=== PATIENT | female | born 1980 | race Caucasian/White ===

== ENCOUNTER 2025-02-10 16:51 | Emergency (ER) | payer SELFPAY ==
[2025-02-10 17:03] VITALS: BP 127/63; PULSE 76; TEMP 36.7; O2SAT 98; BMI 22.7
--- NOTE | 2025-02-10 17:09 | ED_ITS ---
HPI HPI - General Adult General Chief complaint: Wound/Laceration Stated complaint: LT FOOT INJURY Time Seen by Provider: 02/10/25 16:58 Source: patient Mode of arrival: walk-in Limitations: no limitations History of Present Illness HPI narrative: 44-year-old female presents to the emergency department for laceration to her left second toe. This was sustained in her kitchen when she accidentally dropped a kitchen knife and it landed on her toe. No other injury was sustained. It has been more than 10 years since she had a tetanus shot. Related Data Allergies Allergy/AdvReac Type Severity Reaction Status Date / Time No Known Drug Allergies Allergy Verified 02/10/25 17:07 Opioid HPI Opioid Management Most Recent Opioid Data: No Data to Display Review of Systems ROS Narrative A ten point review of systems is negative except as noted above. PFSH PFSH Social History Little interest or pleasure in doing things: not at all Feeling down, depressed, or hopeless: not at all Exam Narrative Exam Narrative: Nurses note and vital signs reviewed and patient is not hypoxic. General: The patient appears well and in no apparent distress. Patient is resting comfortably on cart. Skin: Warm, dry, no pallor noted. There is no rash noted. Head: Normocephalic, atraumatic Eye: Normal conjunctiva, no drainage Ears, Nose, Mouth, and Throat: oral mucosa is moist. Nares patent. Cardiovascular: Regular Rate and Rhythm Respiratory: Patient is in no distress, no accessory muscle use Back: non-tender, no CVA tenderness bilaterally to percussion. GI: Soft and nontender Musculoskeletal: Left second toe has a transverse 1 cm laceration. No active bl eeding but the wound is gaping. No other wounds present. Neurological: A&O normal speech Psychiatric: Cooperative Constitutional Vital Signs, click to edit/add: Last Vital Signs Temp 98.1 F 02/10/25 17:03 Pulse 76 02/10/25 17:03 Resp 18 02/10/25 17:03 BP 127/63 02/10/25 17:03 Pulse Ox 98 02/10/25 17:03 O2 Del Method Room Air 02/10/25 17:03 Course Vital Signs Vital signs: Vital Signs Temperature 98.1 F 02/10/25 17:03 Pulse Rate 76 02/10/25 17:03 Respiratory Rate 18 02/10/25 17:03 Blood Pressure 127/63 02/10/25 17:03 Pulse Oximetry 98 02/10/25 17:03 Oxygen Delivery Method Room Air 02/10/25 17:03 Temperature 98.1 F 02/10/25 17:03 Pulse Rate 76 02/10/25 17:03 Respiratory Rate 18 02/10/25 17:03 Blood Pressure 127/63 02/10/25 17:03 Pulse Oximetry 98 02/10/25 17:03 Oxygen Delivery Method Room Air 02/10/25 17:03 Medical Decision Making MDM Narrative Medical decision making narrative: The following procedure was performed by me. Local infiltration was carried out with 1% lidocaine without epinephrine resulting in complete skin anesthesia. The area was prepped with Betadine x 3 and draped sterilely. It was explored for foreign bodies and none were found and then closed with two 5-0 Ethilon sutures resulting in good skin reapproximation and no complications. No tendon injury noted. She tolerated the procedure well. Sutures are to be removed in 7 to 10 days. Treatment diagnosis and follow-up were discussed with the patient. Differential Diagnosis Differential Diagnosis: Laceration, need for tetanus immunization update Discharge Plan Discharge Chief Complaint: Wound/Laceration Clinical Impression: Laceration of toe Patient Disposition: Home, Self-Care Time of Disposition Decision: 17:27 Condition: Good Mode of Transportation: Private Vehicle Print Language: Scottish Instructions: Laceration (ED) Additional Instructions: Sutures to be removed in 7 to 10 days. Keep clean and dry. Referrals: Physician,Non-Staff, MD [Primary Care Provider] - 1 week
[2025-02-10] MEDS: LIDOCAINE HCL 1% 100 MG/10 ML MDV INJ (17:25)
[2025-02-10] MEDS: ADACEL DIPH,PERTUSS(ACELL),TET VAC/PF 0.5 ML ADULT SYRINGE IM (17:32)
== END 2025-02-10 17:39 | disposition home or self-care (01) ==
PROVIDERS: Emergency Provider Emergency Medicine
DX: S91.115A Laceration without foreign body of left lesser toe(s) without damage to nail, initial encounter (principal); W26.0XXA Contact with knife, initial encounter; Z23 Encounter for immunization
CPT/HCPCS: 12001; 90471; 90715; 99284

== ENCOUNTER 2025-06-16 07:30 | Outpatient (OUT) | payer BC, SELFPAY ==
--- OUTSIDE RECORDS SUMMARY | 2025-06-16 07:36 | XMS_ITS | CCD ---
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 Name Role Phone KARLA MARSH Admitting Unavailable HOSPITAL, [facility] Referring Unavailabl e SELF, REFERRED Primary Care Unavailable [place] Procedure Practitioner Unavailab le UNKNOWN, PROVIDER Surgeon Unavailable UNKNOWN, PROVIDER Attending Unavailable EDSON HENDERSON Admitting Unavailable MARKER, SAMIA Winkler Referring Unavailable STEPHANIE, RUGEN Primary Care Unavailable KARLA MARSH Attending Unavailable KARLA MARSH Admitting Unavailable KLEKARLA GONZALEZ Attending Unavailable STEPHANIE, RUGEN Referring Unavailable STEPHANIE, RUGEN Primary Care Unavailable URIEL SHAILA Admitting Unavailable SHAILA TREVINO Attending Unavailable URIEL, SHAILA Primary Care Unavailable BLANCA LORENZO Referring Unavailable NO PCP, NO PCP Primary Care Unavailable JUANJOSE WOODS Attending Unavailable GIOVANNY AYERS Referring Unavailable FROGAMENI III, GIOVANNY Orellana Attending Unavail able NO PCP, NO PCP Primary Care Unavailable FROGAMENI III, GIOVANNY D Attending Unavail able NO PCP, NO PCP Primary Care Unavailable BLANCA LORENZO Attending Unavailable NO PCP, NO PCP Primary Care Unavailable BLANCA LORENZO Attending Unavailable NO PCP, NO PCP Primary Care Unavailable BLANCA LORENZO Referring Unavailable NO PCP, NO PCP Primary Care Unavailable TRACE ONEILL Referring Unavailable Problems Active Problems Problem Classification Problem Date Documented Date Episodic/Chronic Acute posthemorrhagic anemia (1 source) Acute posthemorrhagic anemia; Translations: [ACUTE POSTHEMORRHAGIC ANEMIA] Onset: 01-24-2019 Episodic Crushing injury or internal injury (7 sources) Unspecified laceration of spleen, initial encounter; Translations: [Major laceration of spleen, subsequent encounter] Onset: 01-16-2019 Episodic Deficiency and other anemia (1 source) Iron deficiency anemia, unspecified; Translations: [IRON DEFICIENCY ANEMIA, UNSPECIFIED] Onset: 01-24-2019 Episodic External cause codes: Fall (1 source) Fall (on) (from) unspecified stairs and steps, initial encounter; Translations: [FALL (ON) (FROM) UNSPECIFIED STAIRS AND STEPS, INIT ENCNTR] Onset: 01-16-2019 Immunizations and screening for infectious disease (2 sources) Encounter for immunization; Translations: [Contact with and (suspected) exposure to infections with a predominantly sexual mode of transmission] Onset: 01-16-2019 Episodic Joint disorders and dislocations; trauma-related (1 source) Other tear of lateral meniscus, current injury, right knee, subsequent encounter; Translations: [Other tear of lateral meniscus, current injury, right knee, subsequent encounter] Onset: 01-03-2024 Episodic Other nervous system disorders (2 sources) Lesion of lateral popliteal nerve, right lower limb; Translations: [Lesion of lateral popliteal nerve, right lower limb] Onset: 12-01-2023 Chronic Other non-traumatic joint disorders (1 source) Pain in right knee; Translations: [Pain in right knee] Onset: 11-18-2023 Episodic Substance-related disorders (1 source) Nicotine dependence, cigarettes, uncomplicated; Translations: [NICOTINE DEPENDENCE, CIGARETTES, UNCOMPLICATED] Onset: 01-24-2019 Chronic Unclassified (2 sources) SPLENIC LACERATION Onset: 01-16-2019 Unclassified (1 source) Post-op Onset: 01-03-2024 Past or Other Problems Problem Classification Problem Date Documented Da te Episodic/Chronic Other connective tissue disease (2 sources) Iliotibial band syndrome, right leg; Translations: [Iliotibial band syndrome, right leg] Onset: 11-01-2023 Episodic Residual codes; unclassified (1 source) Pain Onset: 11-01-2023 Episodic Results Test Name Value Interpretation Reference Range Facility Cult,Genitalon 02-20-2024 Cult,Genital Specimen Description .VAGINA Culture NORMAL URO-GENITAL TAMI NEGATIVE FOR GROUP B STREPTOCOCCI NEGATIVE FOR NEISSERIA GONORRHOEAE Report Status FINAL 02/20/2024 Normal [facility] Comment on above: Performed By: #### G EC #### [employer] [address] [place] [address] [employer] Dean: Oz Lipscomb MD [facility] [address] [place] [address] [employer] Dean: Rusty Woods MD Chlamydia/GC DNA, TPon 02-17 Chlamydia Probe, TP Negative Normal NEG [facility] Comment on above: Result Comment: CHLA MYDIA TRACHOMATIS DNA not detected by nucleic acid amplification. This test is intended for medical purposes only and is not valid for the evaluation of suspected sexual abuse or for other forensic purposes. In certain contexts, culture may be required to meet applicable laws and regulations for diagnosis of C. trachomatis and N. gonorrhoeae infections. Per 2014 CDC recommendations, this test does not include confirmation of positive results by an alternative nucleic acid target. Performed By: #### C YTCGP #### [address] [id number] [employer] Dean: Oz Lipscomb MD Gonorrhea Probe, TP Negative Normal NEG [facility] Comment on above: Result Comment: NEIS SERIA GONORRHOEAE DNA not detected by nucleic acid amplification. This test is intended for medical purposes only and is not valid for the evaluation of suspected sexual abuse or for other forensic purposes. In certain contexts, culture may be required to meet applicable laws and regulations for diagnosis of C. trachomatis and N. gonorrhoeae infections. Per 2014 CDC recommendations, this test does not include confirmation of positive results by an alternative nucleic acid target. Performed By: #### C YTCGP #### [address] [id number] [employer] Dean: Oz Lipscomb MD Cytology Reporton 02-17-2024 Cytology report Cyto stain.thin prep Doc (Cvx/Vag) (NOTE) Path Number: [id number] DIAGNOSIS Imaged ThinPrep Pap - Cervical (1 monolayer slide): Specimen Adequacy: Satisfactory for evaluation. - Endocervical/transfo rmation zone component present. Descriptive Diagnosis: Negative for intraepithelial lesion or malignancy. Comments: Specimen was screened at [facility], [address] [place] [id number] [employer] Screener: CS Electronically Signed Out MORAIMA Chilel(ASCP) sonya/02/27/2024 Source of Specimen: A: Imaged ThinPrep Pap - Cervical (1 monolayer slide) HPV Reflex?............. .........HPV if Abnormal Clinical History Z01.419 Routine obgyn hospitalist physician exam without abnormal findings Processing Lab: [address] [id number] Interpretation performed at [facility], [address] [place] [id number] This Pap Test has been evaluated with the assistance of the mobile melting gmbhPrep Pap Test Imaging System. The Pap smear is a screening test primarily for squamous epithelial lesions, which is subject to both false negative and false positive results. Your patient should be reminded to consult you immediately if she experiences any suspicious signs or symptoms, regardless of her Pap smear result. GYNECOLOGIC CYTOLOGY REPORT Patient Name: BISMARK FOURNIER [facility] Rec: [id number] [employer] [facility] [address] [place] [id number] [facility] Surgical Pathology Reporton 02-17-2024 Surgical Pathology Report (NOTE) Path Number: [id number] -- Diagnosis -- CERVIX, POLYPECTOMY: - BENIGN ENDOCERVICAL POLYP WITH FOCAL DYSTROPHIC CALCIFICATIONS AND CHRONIC INFLAMMATION. Louie Kang M.D. Electronically Signed Out sls/02/21/2024 Clinical Information Pre-Op Diagnosis: CERVICAL POLYP Operation Performed: [place] BIOPSY CERVIX SINGLE/MULT/EXCISION OF LESION SPX kb Source of Specimen A: CERVICAL POLYP Gross Description BISMARK FOURNIER CERVICAL POLYP Received in formalin is a 2.7 x 0.5 x 0.2 cm pink-garcia, polypoid fragment. The base is inked. Intact, 1cs. tm Amber Weiner/kb2:02/18/2024 Microscopic Description Microscopic examination performed. Processing Lab: [address] [id number] Interpretation Performed at [address] [id number] SURGICAL PATHOLOGY CONSULTATION Patient Name: BISMARK FOURNIER Med Rec: [id number] [facility]AT[facility] [address] [place] [phone] Normal [facility] MR KNEE RT WO CONTon 024 MR KNEE RT WO CONT MR KNEE RT WO CONT History: Right lateral knee pain for 3 years Comparison right knee x-ray November 18 Procedure multiplanar multisequence imaging performed through the knee Findings: Complex tear anterior horn lateral meniscus communicating with a meniscal cyst measuring 22 mm coronal image 14 series 10. There is a reactive effusion adjacent to that is at the posterior lateral corner of the knee axial image 19 and coronal image 19 series 10 Medial meniscus appropriate Cruciate and collateral ligaments appropriate Moderate arthritis of the lateral compartment with osteophytes and grade 2-3 hyaline cartilage loss with a focal grade 3 defect coronal image 16 and a moderate lateral compartment osteophyte along with extensive subchondral cysts within the tibial eminence which are degenerative Patellofemoral and medial compartment of relatively spared Ganglion on at the posterior lateral aspect of the knee immediately posterior to the distal femoral metadiaphysis sagittal image 20 series 13 and coronal image 15, measuring 21 mm No bone contusion or osteochondral injury IMPRESSION: Complex tear anterior horn lateral meniscus with adjacent meniscal cyst and reactive effusion Osteoarthritis predominating lateral compartment Ganglion posterior lateral aspect of the knee immediately posterior to the distal femoral metadiaphysis. Finalized by Joseph Callahan MD on 12/04/2023 9:[address] [facility] CBC W/DIFFon 02-06-2019 ABS BASOPHILS 0.1 10*3/uL Normal 0.0-0.2 [facility] Comment on above: Performed By: #### 1 53, #### [facility] [address] ABS IMM GRANS 0.0 10*3/uL Normal 0.0-0.2 [facility] Comment on above: Performed By: #### 1 53, #### [facility] [address] ABS NEUTROPHILS 6.0 10*3/uL Normal 1.6-7.6 The [facility] Comment on above: Performed By: #### 1 53, #### [facility] [address] Basophils #/vol (Bld) 0.6 % Normal 0.0-1.0 The [facility] Comment on above: Performed By: #### 1 #### [facility] [address] [facility]. [address] Eosinophils #/vol (Bld) 0.1 10*3/uL Normal 0.0-0.5 [facility] Comment on above: Performed By: #### 1 #### [facility] [address] Eosinophils/100 WBC (Bld) 1.1 % Normal 0.0-6.0 The [facility] Comment on above: Performed By: #### 1 #### [facility] [address] Erythrocyte distribution width Ratio (RBC) 13.2 % Normal 11.5-15.0 The [facility] Comment on above: Performed By: #### 1 #### [facility] [address] Hematocrit Volume Fraction (Bld) 38.6 % Normal 36.0-45.0 The [facility] Comment on above: Performed By: #### 1 #### [facility] [address] [facility]. [address] Hemoglobin mass conc (Bld) 13.1 g/dL Normal 12.0-15.0 The [facility] Comment on above: Performed By: #### 1 #### [facility] [address] [facility]. [address] IMMATURE GRANS 0.2 % Normal 0.0-1.0 [facility] Comment on above: Performed By: #### 1 #### [facility] [address] Lymphocytes #/vol (Bld) 1.6 10*3/uL Normal 1.2-4.0 The [facility] Comment on above: Performed By: #### 1 #### [facility] [address] [place] [address], [facility] Lymphocytes/100 WBC (Bld) 19.4 % Low 20.0-45.0 The [facility] Comment on above: Performed By: #### 1 #### [facility] [address] [facility]. [address] MCH Entitic mass (RBC) 32.6 pg Normal 27.0-33.0 The [facility] Comment on above: Performed By: #### 1 #### [facility] [address] [facility] [address] MCHC mass conc (RBC) 33.9 g/dL Normal 32.0-35.0 The [facility] Comment on above: Performed By: #### 1 #### [facility] [address] [facility]. [address] MCV Entitic volume (RBC) 96.0 fL Normal 82.0-98.0 The [facility] Comment on above: Performed By: #### 1 #### [facility] [address] [facility]. [address] Monocytes #/vol (Bld) 0.5 10*3/uL Normal 0.1-1.0 e [facility] Comment on above: Performed By: #### 1 #### [facility] [address] [facility] [place] [address], [facility] MONOS 5.7 % Normal 5.0-12.0 The [facility] Comment on above: Performed By: #### 1 #### [facility] [address] [place] [address], [facility] Neutrophils/100 WBC (Bld) 73.0 % High 40.0-72.0 The [facility] Comment on above: Performed By: #### 1 #### [facility] [address] [place] [address], [facility] Nucleated RBC/100 WBC Ratio (Bld) 0 % Normal 0-0 The [facility] Comment on above: Performed By: #### 1 53, #### [facility] [address] [place] [address], [facility] PLAT CNT 350 10*3/uL Normal 150-400 The [facility] Comment on above: Performed By: #### 1 #### [facility] [address] [place] [address], [facility] RBC #/vol (Bld) 4.02 10*6/uL Normal 3.80-5.00 The [facility] Comment on above: Performed By: #### 1 #### [facility] [address] [facility] [place] [address], [facility] WBC #/vol (Bld) 8.21 10*3/uL Normal 4.00-10.60 [facility] Comment on above: Performed By: #### 1 #### [facility] [address] CBC COMPLETE BLOOD COUNTon 0 - Erythrocyte distribution width Ratio (RBC) 13.1 % Normal 11.5-15.0 The [facility] Comment on above: Order Comment: No: D o not add to previous draw Performed By: #### 1 53, #### [facility] [address] [place] [address], [facility] Hematocrit Volume Fraction (Bld) 28.6 % Low 36.0-45.0 The [facility] Comment on above: Order Comment: No: D o not add to previous draw Performed By: #### 1 53, #### [facility] [address] [place] [address], [facility] Hemoglobin mass conc (Bld) 9.6 g/dL Low 12.0-15.0 The [facility] Comment on above: Order Comment: No: D o not add to previous draw Performed By: #### 1 53, #### [facility] [address] [place] [address], [facility] MCH Entitic mass (RBC) 32.0 pg Normal 27.0-33.0 The [facility] Comment on above: Order Comment: No: D o not add to previous draw Performed By: #### 1 #### [facility] [address] [place] [address], [facility] MCHC mass conc (RBC) 33.6 g/dL Normal 32.0-35.0 The [facility] Comment on above: Order Comment: No: D o not add to previous draw Performed By: #### 1 #### [facility] [address] [place] [address], [facility] MCV Entitic volume (RBC) 95.3 fL Normal 82.0-98.0 The [facility] Comment on above: Order Comment: No: D o not add to previous draw Performed By: #### 1 #### [facility] [address] [place] [address], [facility] Nucleated RBC/100 WBC Ratio (Bld) 0 % Normal 0-0 The [facility] Comment on above: Order Comment: No: D o not add to previous draw Performed By: #### 1 53, #### [facility] [address] [place] [address], [facility] PLAT CNT 376 10*3/uL Normal 150-400 [facility] Comment on above: Order Comment: No: D o not add to previous draw Performed By: #### 1 53, #### [facility] [address] [place] [address], [facility] RBC #/vol (Bld) 3.00 10*6/uL Low 3.80-5.00 [facility] Comment on above: Order Comment: No: D o not add to previous draw Performed By: #### 1 53, #### [facility] [address] [place] [address], [place] WBC #/vol (Bld) 7.61 10*3/uL Normal 4.00-10.60 [facility] Comment on above: Order Comment: No: D o not add to previous draw Performed By: #### 1 53, #### [facility] [address] [place] [address], [facility] BASIC METABOLIC PANELon 04- Calcium mass conc 8.3 mg/dL Low 8.6-10.3 [facility] Comment on above: Order Comment: No: D o not add to previous draw Performed By: #### 1 53, #### [facility] [address] [place] [address], [place] Chloride molar conc 106 mmol/L Normal 98-107 The [facility] Comment on above: Order Comment: No: D o not add to previous draw Performed By: #### 1 53, #### [facility] [address] [place] [address], [place] CO2 molar conc 29 mmol/L Normal 21-31 The [facility] Comment on above: Order Comment: No: D o not add to previous draw Performed By: #### 1 53, #### [facility] [address] [place] [address], [place] Creatinine mass conc 0.62 mg/dL Normal 0.60-1.20 The [facility] Comment on above: Order Comment: No: D o not add to previous draw Performed By: #### 1 53, #### [facility] [address] [place] [address], [place] GFR/1.73 sq M predicted among blacks MDRD vol rate/area (S/P/Bld) mL/min/{1.73_m2} Normal >60 The [facility] Comment on above: Order Comment: No: D o not add to previous draw Performed By: #### 1 53, #### [facility] [address] [place] [address], [place] GFR/1.73 sq M predicted among non-blacks MDRD vol rate/area (S/P/Bld) mL/min/{1.73_m2} Normal >60 The [facility] Comment on above: Order Comment: No: D o not add to previous draw Performed By: #### 1 53, #### [facility] [address] [place] [address], [place] Glucose mass conc 106 mg/dL High 70-100 [facility] Comment on above: Order Comment: No: D o not add to previous draw Performed By: #### 1 53, #### [facility] [address] [place] [address], [place] Potassium molar conc 3.9 mmol/L Normal 3.5-5.1 The [facility] Comment on above: Order Comment: No: D o not add to previous draw Performed By: #### 1 53, #### [facility] [address] [place] [address], [place] Sodium molar conc 138 mmol/L Normal 136-145 [facility] Comment on above: Order Comment: No: D o not add to previous draw Performed By: #### 1 53, #### [facility] [address] [place] [address], [facility] Urea nitrogen mass conc 7 mg/dL Normal 7-25 The [facility] Comment on above: Order Comment: No: D o not add to previous draw Performed By: #### 1 53, #### [facility] [address] [place] [address], [facility] CBC COMPLETE BLOOD COUNTon 0 - Erythrocyte distribution width Ratio (RBC) 13.2 % Normal 11.5-15.0 [facility] Comment on above: Order Comment: No: D o not add to previous draw Performed By: #### 1 53, #### [facility] [address] [place] [address], [facility] Hematocrit Volume Fraction (Bld) 27.7 % Low 36.0-45.0 [facility] Comment on above: Order Comment: No: D o not add to previous draw Performed By: #### 1 53, #### [facility] [address] [place] [address], [facility] Hemoglobin mass conc (Bld) 9.3 g/dL Low 12.0-15.0 [facility] Comment on above: Order Comment: No: D o not add to previous draw Performed By: #### 1 53, #### [facility] [address] [place] [address], [facility] MCH Entitic mass (RBC) 32.3 pg Normal 27.0-33.0 [facility] Comment on above: Order Comment: No: D o not add to previous draw Performed By: #### 1 53, #### [facility] [address] [place] [address], [facility] MCHC mass conc (RBC) 33.6 g/dL Normal 32.0-35.0 [facility] Comment on above: Order Comment: No: D o not add to previous draw Performed By: #### 1 53, #### [facility] [address] [place] [address], [facility] MCV Entitic volume (RBC) 96.2 fL Normal 82.0-98.0 [facility] Comment on above: Order Comment: No: D o not add to previous draw Performed By: #### 1 53, #### [facility] [address] [place] [address], [facility] Nucleated RBC/100 WBC Ratio (Bld) 0 % Normal 0-0 [facility] Comment on above: Order Comment: No: D o not add to previous draw Performed By: #### 1 53, #### [facility] [address] [place] [address], [facility] PLAT CNT 316 10*3/uL Normal 150-400 [facility] Comment on above: Order Comment: No: D o not add to previous draw Performed By: #### 1 53, #### [facility] [address] [place] [address], [facility] RBC #/vol (Bld) 2.88 10*6/uL Low 3.80-5.00 [facility] Comment on above: Order Comment: No: D o not add to previous draw Performed By: #### 1 53, #### [facility] [address] [place] [address], [facility] WBC #/vol (Bld) 7.66 10*3/uL Normal 4.00-10.60 [facility] Comment on above: Order Comment: No: D o not add to previous draw Performed By: #### 1 53, #### [facility] [address] [place] [address], [facility] IRON BLOODon 01-25-2019 Iron mass conc 32 ug/dL Low 50-212 [facility] Comment on above: Order Comment: No: D o not add to previous draw Performed By: #### 1 53, #### [facility] [address] [place] [address], [place] BASIC METABOLIC PANELon 04-0 Calcium mass conc 8.8 mg/dL Normal 8.6-10.3 [facility] Comment on above: Order Comment: No: D o not add to previous draw Performed By: #### 1 53, #### [facility] [address] [place] [address], [place] Chloride molar conc 106 mmol/L Normal 98-107 The [facility] Comment on above: Order Comment: No: D o not add to previous draw Performed By: #### 1 53, #### [facility] [address] [place] [address], [place] CO2 molar conc 26 mmol/L Normal 21-31 [facility] Comment on above: Order Comment: No: D o not add to previous draw Performed By: #### 1 53, #### [facility] [address] [place] [address], [place] Creatinine mass conc 0.59 mg/dL Low 0.60-1.20 [facility] Comment on above: Order Comment: No: D o not add to previous draw Performed By: #### 53, #### [facility] [address] [place] [address], [place] GFR/1.73 sq M predicted among blacks MDRD vol rate/area (S/P/Bld) mL/min/{1.73_m2} Normal >60 The [facility] Comment on above: Order Comment: No: D o not add to previous draw Performed By: #### 1 53, #### [facility] [address] [place] [address], [place] GFR/1.73 sq M predicted among non-blacks MDRD vol rate/area (S/P/Bld) mL/min/{1.73_m2} Normal >60 The [facility] Comment on above: Order Comment: No: D o not add to previous draw Performed By: #### 1 53, #### [facility] [address] [place] [address], [facility] Glucose mass conc 104 mg/dL High 70-100 [facility] Comment on above: Order Comment: No: D o not add to previous draw Performed By: #### 1 53, #### [facility] [address] [place] [address], [facility] Potassium molar conc 3.6 mmol/L Normal 3.5-5.1 [facility] Comment on above: Order Comment: No: D o not add to previous draw Performed By: #### 1 53, #### [facility] [address] [place] [address], [facility] Sodium molar conc 139 mmol/L Normal 136-145 [facility] Comment on above: Order Comment: No: D o not add to previous draw Performed By: #### 1 53, #### [facility] [address] [place] [address], [facility] Urea nitrogen mass conc 7 mg/dL Normal 7-25 [facility] Comment on above: Order Comment: No: D o not add to previous draw Performed By: #### 1 53, #### [facility] [address] [place] [address], [facility] CBC COMPLETE BLOOD COUNTon 0 - Erythrocyte distribution width Ratio (RBC) 13.1 % Normal 11.5-15.0 [facility] Comment on above: Order Comment: No: D o not add to previous draw Performed By: #### 1 53, #### [facility] [address] [place] [address], [place] Hematocrit Volume Fraction (Bld) 28.4 % Low 36.0-45.0 [facility] Comment on above: Order Comment: No: D o not add to previous draw Performed By: #### 1 53, #### [facility] [address] [place] [id number], [facility] Hemoglobin mass conc (Bld) 9.9 g/dL Low 12.0-15.0 [facility] Comment on above: Order Comment: No: D o not add to previous draw Performed By: #### 1 53, #### [facility] [address] [place] [address], [facility] MCH Entitic mass (RBC) 33.6 pg High 27.0-33.0 [facility] Comment on above: Order Comment: No: D o not add to previous draw Performed By: #### 1 53, #### [facility] [address] [place] [id number], [facility] MCHC mass conc (RBC) 34.9 g/dL Normal 32.0-35.0 [facility] Comment on above: Order Comment: No: D o not add to previous draw Performed By: #### 1 #### [facility] [address] [place] [address], [facility] MCV Entitic volume (RBC) 96.3 fL Normal 82.0-98.0 [facility] Comment on above: Order Comment: No: D o not add to previous draw Performed By: #### 1 #### [facility] [address] [place] [id number], [facility] Nucleated RBC/100 WBC Ratio (Bld) 0 % Normal 0-0 [facility] Comment on above: Order Comment: No: D o not add to previous draw Performed By: #### 1 53, #### [facility] [address] [place] [id number], [facility] PLAT CNT 299 10*3/uL Normal 150-400 [facility] Comment on above: Order Comment: No: D o not add to previous draw Performed By: #### 1 53, #### [facility] [address] [facility] [place] [address], [facility] RBC #/vol (Bld) 2.95 10*6/uL Low 3.80-5.00 [facility] Comment on above: Order Comment: No: D o not add to previous draw Performed By: #### 1 53, #### [facility] [address] [place] [address], [facility] WBC #/vol (Bld) 8.21 10*3/uL Normal 4.00-10.60 [facility] Comment on above: Order Comment: No: D o not add to previous draw Performed By: #### 1 53, #### [facility] [address] ABDOMEN AND PELVIS W CONT RASTon 01-24-2019 CT ABDOMEN AND PELVIS W CONTRAST [facility] Department of Radiology [address] [place] [id number] Patient Name: BISMARK FOURNIER : 1980 Sex: F Age: Race: White Pt. Location: [id number] Patient Status: I Ordered Date: 01/24/2019 9:25:00 AM Completed Date: 01/24/2019 10:39 AM Requesting Provider: KARLA MARSH Attending Provider: EDSON HENDERSON Report Copy To: Signs & Symptoms: Trauma History: Patient history not available Comments: R/O Liver/Spleen Trauma, Known splenic injury with increasing pain Exam: CT ABDOMEN AND PELVIS W CONTRAST CT ABDOMEN AND PELVIS W CONTRAST 01/24/2019 10:39 AM EDT SIGNS AND SYMPTOMS: Trauma TECHNOLOGIST COMMENTS: Pt is s/p fall down stairs x 1 week. H/o known ruptured spleen. Pt c/o new onset of left sided abdominal pain x 1 day. QUESTION FOR THE RADIOLOGIST: R/O Liver/Spleen Trauma, Known splenic injury with increasing pain PROTOCOL: Axial CT images of the abdomen/pelvis were obtained with IV contrast. CONTRAST: Contrast: OMNIPAQUE 350 (LOCM), 100 milliliter, Intravenous TECHNIQUE: Multidetector ct axial images of the abdomen and pelvis were obtained with IV contrast. Multiplanar reformats were performed and viewed on a separate workstation and reviewed to further define anatomy and possible pathology. Appropriate CT dose lowering techniques were utilized. COMPARISON: January 16, 2019. FINDINGS: Lower Chest: Mild dependent and left lower lobe atelectasis. ABDOMEN: Liver: Normal in morphology and size. No hepatic lesions. There is a small amount of perihepatic blood, decreased in size. Bile Ducts: Normal caliber. Gallbladder: Unremarkable. Pancreas: Within normal limits. Spleen: Areas of laceration appear unchanged. Pelvic extension of hemorrhage appears to have resolved. However blood (HU 53) noted between the spleen and left lateral abdominal may be slightly increased with layered areas of increased attenuation concerning for intermittent bleeding. Adrenals: Within normal limits. Kidneys: No renal calculi or evidence of obstruction. Pelvis: Reproductive Organs: No pelvic masses. Ureters: Within normal limits. Bladder: Within normal limits. Bowel: Normal caliber. Mesenteric Lymph Nodes: No enlarged mesenteric lymph nodes. Peritoneum: No free air. Vessels: Within normal limits. Retroperitoneum: Within normal limits. Abdominal Wall: Within normal limits. Bones: Within normal limits. IMPRESSION: * Splenic laceration with signs of intermittent bleeding. * Overall decreased size of hemoperitoneum. * Blood in the left upper quadrant appears slightly increased in volume, some or all of which may be subcapsular. Approved by:Noam Robles on 01/24/2019 11:42 AM EDT. I, Jennifer Amaro, have reviewed the images and report and concur with these findings. Electronically signed by:Jennifer Amaro. Transcribed by: [email or web address], User Resident: NOAM ROBLES Electronically Signed by: JENNIFER AMARO @ 01/24/2019 01:07 PM I personally read this/these film(s) with this resident Normal [facility] Comment on above: Order Comment: No: D o not add to previous draw LACTATE BLOODon 01-24-2019 Lactate molar conc 0.5 mmol/L Normal 0.5-2.2 [facility] Comment on above: Order Comment: No: D o not add to previous draw Performed By: #### 1 005, #### [address] MAGNESIUM BLOODon 01-24-2019 Magnesium mass conc 2.0 mg/dL Normal 1.9-2.7 [facility] Comment on above: Order Comment: No: D o not add to previous draw Performed By: #### 1 53, #### [address] PORTABLE CHEST 1 VIEWon PORTABLE CHEST [address] [facility] Department of Radiology [address] [place] [id number] Patient Name: BISMARK FOURNIER : 1980 Sex: F Age: Race: White Pt. Location: [id number] Patient Status: I Ordered Date: 01/24/2019 9:25:00 AM Completed Date: 01/24/2019 11:49 AM Requesting Provider: KARLA MARSH Attending Provider: ESDON HENDERSON Report Copy To: Signs & Symptoms: Acute Respiratory Distress History: Patient history not available Comments: R/O Effusion Exam: PORTABLE CHEST 1 VIEW PORTABLE CHEST 1 VIEW 01/24/2019 11:49 AM EDT SIGNS AND SYMPTOMS: Acute Respiratory Distress TECHNOLOGIST COMMENTS: shortness of breath QUESTION FOR THE RADIOLOGIST: R/O Effusion PROTOCOL: AP(PA) view was obtained. COMPARISON: CT chest January 16 FINDINGS: The heart and mediastinum are unremarkable. Lungs are free of infiltrates or effusions. No thoracic deformity is noted. No obvious rib fractures. IMPRESSION: Normal chest. No pleural effusion. Electronically signed by:Ariela Villegas. Transcribed by: [email or web address], User Resident: Electronically Signed by: ARIELA VILLEGAS @ 01/24/2019 01:34 PM Normal [facility] Comment on above: Order Comment: No: D o not add to previous draw PROTHROMBIN TIMEon 9 INR Coag RelTime (PPP) 1.04 {INR} Normal 0.91-1.16 [facility] Comment on above: Order Comment: No: D o not add to previous draw Result Comment: ACCC P RECOMMENDED INR FOR WARFARIN THERAPY -------- ------- CONDITION INR PROPHYLAXIS OF VENOUS THROMBOSIS 2-3 (HIGH-RISK SURGERY) TREATMENT OF VENOUS THROMBOSIS 2-3 TREATMENT OF PULMONARY EMBOLISM 2-3 PREVENTION OF SYSTEMIC EMBOLISM: 2-3 ACUTE MYOCARDIAL INFARCTION TISSUE HEART VALVES VALVULAR HEART DISEASE ATRIAL FIBRILLATION RECURRENT SYSTEMIC EMBOLISM MECHANICAL HEART VALVE 2.5-3.5 FROM: ORAL ANTICOAGULANTS. MECHANISM OF ACTION, CLINICAL EFFECTIVENESS, AND OPTIMAL THERAPEUTIC RANGE. CHEST 1995;108:231S-246S. Performed By: #### 1 53, #### [facility] [address] Prothrombin time (PT) Coag time (PPP) 13.6 s Normal 12.3-14.8 [facility] Comment on above: Order Comment: No: D o not add to previous draw Result Comment: ALL RESULTS MUST BE INTERPRETED WITH RESPECT TO BLOOD DRAWING ARTIFACT OR DILUTION ERROR OF ANTICOAGULANT AT THE TIME OF SAMPLING. Performed By: #### 1 53, #### [facility] [address] HEMATOCRITon 01-19-2019 Hematocrit Volume Fraction (Bld) 29.7 % Low 36.0-45.0 [facility] Comment on above: Order Comment: No: D o not add to previous draw Performed By: #### 1 53, #### [facility] [address] [place] [address], [facility] HEMOGLOBINon 01-19-2019 Hemoglobin mass conc (Bld) 10.7 g/dL Low 12.0-15.0 [facility] Comment on above: Order Comment: No: D o not add to previous draw Performed By: #### 1 53, #### [facility] [address] [place] [address], [facility] BASIC METABOLIC PANELon Calcium mass conc 7.6 mg/dL Low 8.6-10.3 [facility] Comment on above: Order Comment: No: D o not add to previous draw Performed By: #### 1 53, #### [facility] [address] [place] [address], [facility] Chloride molar conc 109 mmol/L High 98-107 [facility] [place] [facility] Comment on above: Order Comment: No: D o not add to previous draw Performed By: #### 1 53, #### [facility] [address] [place] [address], [place] CO2 molar conc 20 mmol/L Low 21-31 [facility] Comment on above: Order Comment: No: D o not add to previous draw Performed By: #### 1 53, #### [facility] [address] [place] [address], [place] Creatinine mass conc 0.59 mg/dL Low 0.60-1.20 [facility] Comment on above: Order Comment: No: D o not add to previous draw Performed By: #### 1 53, #### [facility] [address] [place] [address], [place] GFR/1.73 sq M predicted among blacks MDRD vol rate/area (S/P/Bld) mL/min/{1.73_m2} Normal >60 [facility] Comment on above: Order Comment: No: D o not add to previous draw Performed By: #### 1 53, #### [facility] [address] [place] [address], [place] GFR/1.73 sq M predicted among non-blacks MDRD vol rate/area (S/P/Bld) mL/min/{1.73_m2} Normal >60 [facility] Comment on above: Order Comment: No: D o not add to previous draw Performed By: #### 1 53, #### [facility] [address] [place] [address], [place] Glucose mass conc 68 mg/dL Low 70-100 [facility] Comment on above: Order Comment: No: D o not add to previous draw Performed By: #### 1 53, #### [facility] [address] [place] [address], [place] Potassium molar conc 3.7 mmol/L Normal 3.5-5.1 [facility] Comment on above: Order Comment: No: D o not add to previous draw Performed By: #### 1 53, #### [facility] [address] [place] [address], [place] Sodium molar conc 136 mmol/L Normal 136-145 [facility] Comment on above: Order Comment: No: D o not add to previous draw Performed By: #### 1 53, #### [facility] [address] [place] [address], [facility] Urea nitrogen mass conc 8 mg/dL Normal 7-25 [facility] Comment on above: Order Comment: No: D o not add to previous draw Performed By: #### 1 53, #### [facility] [address] [place] [address], [facility] CBC COMPLETE BLOOD COUNTon 0 - Erythrocyte distribution width Ratio (RBC) 13.3 % Normal 11.5-15.0 [facility] Comment on above: Order Comment: No: D o not add to previous draw Performed By: #### 1 53, #### [facility] [address] [place] [address], [place] Hematocrit Volume Fraction (Bld) 28.7 % Low 36.0-45.0 [facility] Comment on above: Order Comment: No: D o not add to previous draw Performed By: #### 1 53, #### [facility] [address] [place] [address], [place] Hemoglobin mass conc (Bld) 9.9 g/dL Low 12.0-15.0 [facility] Comment on above: Order Comment: No: D o not add to previous draw Performed By: #### 1 53, #### [facility] [address] [place] [address], [place] MCH Entitic mass (RBC) 32.6 pg Normal 27.0-33.0 [facility] Comment on above: Order Comment: No: D o not add to previous draw Performed By: #### 1 53, #### [facility] [address] [place] [address], [facility] MCHC mass conc (RBC) 34.5 g/dL Normal 32.0-35.0 [facility] Comment on above: Order Comment: No: D o not add to previous draw Performed By: #### 1 53, #### [facility] [address] MCV Entitic volume (RBC) 94.4 fL Normal 82.0-98.0 [facility] Comment on above: Order Comment: No: D o not add to previous draw Performed By: #### 1 53, #### [facility] [address] Nucleated RBC/100 WBC Ratio (Bld) 0 % Normal 0-0 [facility] Comment on above: Order Comment: No: D o not add to previous draw Performed By: #### 1 53, #### [facility] [address] [place] [address], [facility] PLAT CNT 154 10*3/uL Normal 150-400 [facility] Comment on above: Order Comment: No: D o not add to previous draw Performed By: #### 1 53, #### [facility] [address] [place] [id number], [facility] RBC #/vol (Bld) 3.04 10*6/uL Low 3.80-5.00 [facility] Comment on above: Order Comment: No: D o not add to previous draw Performed By: #### 1 53, #### [facility] [address] [place] [id number], [facility] WBC #/vol (Bld) 8.22 10*3/uL Normal 4.00-10.60 [facility] Comment on above: Order Comment: No: D o not add to previous draw Performed By: #### 1 53, #### [facility] [address] ALCOHOLon 01-17-2019 Ethanol mass conc NONE DETECTED Normal [facility] Comment on above: Order Comment: No: D o not add to previous draw Result Comment: Divi de by 1000 to convert mg/dL to percent. Example: 100mg/dL = 0.1%. Performed By: #### 1 53, #### [facility] [address] [facility]. [address] CBC COMPLETE BLOOD COUNTon 0 01-17-2019 Erythrocyte distribution width Ratio (RBC) 14.1 % Normal 11.5-15.0 [facility] Comment on above: Order Comment: No: D o not add to previous draw Performed By: #### 5 0608 #### [facility] [address] [facility] Hematocrit Volume Fraction (Bld) 30.2 % Low 36.0-45.0 [facility] Comment on above: Order Comment: No: D o not add to previous draw Performed By: #### 5 0608 #### [facility] [address] [facility] Hemoglobin mass conc (Bld) 10.5 g/dL Low 12.0-15.0 [facility] Comment on above: Order Comment: No: D o not add to previous draw Performed By: #### 5 0608 #### [facility] [address] [facility]. [address] MCH Entitic mass (RBC) 32.9 pg Normal 27.0-33.0 [facility] Comment on above: Order Comment: No: D o not add to previous draw Performed By: #### 5 0608 #### [facility] [address] MCHC mass conc (RBC) 34.8 g/dL Normal 32.0-35.0 [facility] Comment on above: Order Comment: No: D o not add to previous draw Performed By: #### 5 0608 #### [facility] [address] [place] [address], [facility] MCV Entitic volume (RBC) 94.7 fL Normal 82.0-98.0 [facility] Comment on above: Order Comment: No: D o not add to previous draw Performed By: #### 5 0608 #### [facility] [address] Nucleated RBC/100 WBC Ratio (Bld) 0 % Normal 0-0 [facility] Comment on above: Order Comment: No: D o not add to previous draw Performed By: #### 5 0608 #### [facility] [address] [place] [address], [facility] PLAT CNT 160 10*3/uL Normal 150-400 [facility] Comment on above: Order Comment: No: D o not add to previous draw Performed By: #### 5 0608 #### [facility] [address] [place] [address], [facility] RBC #/vol (Bld) 3.19 10*6/uL Low 3.80-5.00 [facility] Comment on above: Order Comment: No: D o not add to previous draw Performed By: #### 5 0608 #### [facility] [address] [place] [address], [facility] WBC #/vol (Bld) 8.12 10*3/uL Normal 4.00-10.60 [facility] Comment on above: Order Comment: No: D o not add to previous draw Performed By: #### 5 0608 #### [facility] [address] [place] [address], [facility] Erythrocyte distribution width Ratio (RBC) 13.3 % Normal 11.5-15.0 [facility] Comment on above: Order Comment: if no t done in ED No: Do not add to previous draw Performed By: #### 5 0608 #### [facility] [address] [place] [id number], [facility] Hematocrit Volume Fraction (Bld) 32.4 % Low 36.0-45.0 [facility] Comment on above: Order Comment: if no t done in ED No: Do not add to previous draw Performed By: #### 5 0608 #### [facility] [address] [place] [address], [facility] Hemoglobin mass conc (Bld) 11.4 g/dL Low 12.0-15.0 [facility] Comment on above: Order Comment: if no t done in ED No: Do not add to previous draw Performed By: #### 5 0608 #### [facility] [address] [place] [address], [facility] MCH Entitic mass (RBC) 32.9 pg Normal 27.0-33.0 [facility] Comment on above: Order Comment: if no t done in ED No: Do not add to previous draw Performed By: #### 5 0608 #### [facility] [address] [place] [address], [facility] MCHC mass conc (RBC) 35.2 g/dL High 32.0-35.0 [facility] Comment on above: Order Comment: if no t done in ED No: Do not add to previous draw Performed By: #### 5 0608 #### [facility] [address] [place] [address], [facility] MCV Entitic volume (RBC) 93.4 fL Normal 82.0-98.0 [facility] Comment on above: Order Comment: if no t done in ED No: Do not add to previous draw Performed By: #### 5 0608 #### [facility] [address] [facility]. [address] Nucleated RBC/100 WBC Ratio (Bld) 0 % Normal 0-0 [facility] Comment on above: Order Comment: if no t done in ED No: Do not add to previous draw Performed By: #### 5 0608 #### [facility] [address] [facility] [place] [address], [facility] PLAT CNT 177 10*3/uL Normal 150-400 [facility] Comment on above: Order Comment: if no t done in ED No: Do not add to previous draw Performed By: #### 5 0608 #### [facility] [address] [facility]. [address] RBC #/vol (Bld) 3.47 10*6/uL Low 3.80-5.00 [facility] Comment on above: Order Comment: if no t done in ED No: Do not add to previous draw Performed By: #### 5 0608 #### [facility] [address] [facility]. [address] WBC #/vol (Bld) 10.45 10*3/uL Normal 4.00-10.60 [facility] Comment on above: Order Comment: if no t done in ED No: Do not add to previous draw Performed By: #### 5 0608 #### [facility] [address] [facility]. [address] COMP METABOLIC PANELon 01-17 Albumin mass conc 3.6 g/dL Normal 3.5-5.7 [facility] Comment on above: Order Comment: No: D o not add to previous draw Performed By: #### 0 0121, [id number], [id number] #### [facility] [address] [place] [address], [facility] ALKALINE PHOSPH 31 IU/L Low 34-104 [facility] Comment on above: Order Comment: No: D o not add to previous draw Performed By: #### 0 0121, [id number], [id number] #### [facility] [address] [place] [address], [place] ALT enzyme act/vol 10 U/L Normal 7-52 [facility] Comment on above: Order Comment: No: D o not add to previous draw Performed By: #### 0 0121, 54506, [id number] #### [facility] [address] [place] [address], [place] AST enzyme act/vol 18 U/L Normal 13-39 [facility] Comment on above: Order Comment: No: D o not add to previous draw Performed By: #### 0 0121, 62161, 53650 #### [facility] [address] [place] [address], [place] Bilirubin mass conc 1.0 mg/dL Normal 0.3-1.0 [facility] [place] [facility] Comment on above: Order Comment: No: D o not add to previous draw Performed By: #### 0 0121, [id number], 02341 #### [facility] [address] [place] [address], [place] Calcium mass conc 7.8 mg/dL Low 8.6-10.3 [facility] Comment on above: Order Comment: No: D o not add to previous draw Performed By: #### 0 0121, 87895, 55516 #### [facility] [address] [place] [address], [place] Chloride molar conc 110 mmol/L High 98-107 [facility] [place] [facility] Comment on above: Order Comment: No: D o not add to previous draw Performed By: #### 0 0121, 05490, 03489 #### [facility] [address] [place] [address], [place] CO2 molar conc 24 mmol/L Normal 21-31 [facility] Comment on above: Order Comment: No: D o not add to previous draw Performed By: #### 0 0121, 38797, 02420 #### [facility] [address] [place] [address], [facility] Creatinine mass conc 0.69 mg/dL Normal 0.60-1.20 [facility] Comment on above: Order Comment: No: D o not add to previous draw Performed By: #### 0 0121, 10500, 87280 #### [facility] [address] [place] [address], [facility] GFR/1.73 sq M predicted among blacks MDRD vol rate/area (S/P/Bld) mL/min/{1.73_m2} Normal >60 [facility] Comment on above: Order Comment: No: D o not add to previous draw Performed By: #### 0 0121, 94423, 38521 #### [facility] [address] [place] [address], [facility] GFR/1.73 sq M predicted among non-blacks MDRD vol rate/area (S/P/Bld) mL/min/{1.73_m2} Normal >60 [facility] Comment on above: Order Comment: No: D o not add to previous draw Performed By: #### 0 0121, 70733, 52373 #### [facility] [address] [place] [address], [facility] Glucose mass conc 95 mg/dL Normal 70-100 [facility] Comment on above: Order Comment: No: D o not add to previous draw Performed By: #### 0 0121, 98828, 71922 #### [facility] [address] [place] [address], [facility] Potassium molar conc 3.7 mmol/L Normal 3.5-5.1 [facility] Comment on above: Order Comment: No: D o not add to previous draw Performed By: #### 0 0121, 80243, 62422 #### [facility] [address] Protein mass conc 5.0 g/dL Low 6.0-8.3 [facility] Comment on above: Order Comment: No: D o not add to previous draw Performed By: #### 0 0121, 51816, 46104 #### [facility] [address] [place] [address], [facility] [facility] Sodium molar conc 139 mmol/L Normal 136-145 [facility] Comment on above: Order Comment: No: D o not add to previous draw Performed By: #### 0 0121, [id number], [id number] #### [facility] [address] [place] [address], [facility] Urea nitrogen mass conc 6 mg/dL Low 7-25 [facility] Comment on above: Order Comment: No: D o not add to previous draw Performed By: #### 0 0121, [id number], [id number] #### [id number] [place] [address] CT 3D CERVICAL SPINE WO CONT RUST 01-17-2019 CT 3D CERVICAL SPINE WO CONTRAST [facility] Department of Radiology [address] [place] [id number] Patient Name: BISMARK FOURNIER : 1980 Sex: F Age: Race: White Pt. Location: [id number] Patient Status: I Ordered Date: 01/16/2019 9:55:00 PM Completed Date: 01/16/2019 11:02 PM Requesting Provider: KARLA MARSH Attending Provider: KARLA MARSH Report Copy To: Signs & Symptoms: Fracture History: Patient history not available Comments: R/O Fractures Exam: CT 3D CERVICAL SPINE WO CONTRAST CT BRAIN WO CONTRAST, CT 3D CERVICAL SPINE WO CONTRAST 01/16/2019 11:02 PM EDT SIGN AND SYMPTOMS: Trauma TECHNOLOGIST COMMENTS: Posterior head and neck pain s/p fall down steps today. QUESTION FOR RADIOLOGIST: R/O Bleed, NO PROTOCOL: Axial CT images of the head were obtained without IV contrast. (accession [id number]), Axial CT images of the spine were obtained without IV contrast. (accession [id number]) TECHNIQUE: Multi detector CT axial slices of the brain were obtained without IV contrast. Helical, sagittal, coronal and 3D reconstructions were performed and viewed on a separate workstation and reviewed to further define anatomy and possible pathology. COMPARISON: None. FINDINGS: CT brain: Ventricles and sulci are age-appropriate. No mass, mass effect or midline shift. No intracranial hemorrhage. No CT evidence of acute. Skull and paranasal sinuses unremarkable. CT cervical spine: Reversal cervical lordosis possibly caused by patient's cervical collar. Facet alignment normal. Spinous processes intact. No prevertebral soft tissue swelling. Atlantodental distance is normal. Odontoid process and lateral masses of C1 and C2 are unremarkable. No cervical spine fracture or malalignment IMPRESSION: Negative CT brain. No intracranial hemorrhage and no skull fracture Cervical spine fracture or malalignment. Reversal of cervical lordosis possibly caused by the cervical collar Electronically signed by:Sole Hayes. Transcribed by: [email or web address], User Resident: Electronically Signed by: SOLE HAYES @ 01/17/2019 11:20 AM Normal [facility] Comment on above: Order Comment: No: D o not add to previous draw CT ABDOMEN AND PELVIS W CONT RASTon 01-17-2019 CT ABDOMEN AND PELVIS W CONTRAST [facility] Department of Radiology [address] [place] [id number] Patient Name: BISMARK FOURNIER : 1980 Sex: F Age: Race: White Pt. Location: [id number] Patient Status: I Ordered Date: 01/16/2019 9:55:00 PM Completed Date: 01/16/2019 11:03 PM Requesting Provider: KARLA MARSH Attending Provider: KARLA MARSH Report Copy To: Signs & Symptoms: Trauma History: Patient history not available Comments: R/O Liver/Spleen Trauma, splenic lac Exam: CT ABDOMEN AND PELVIS W CONTRAST CT ABDOMEN AND PELVIS W CONTRAST 01/16/2019 11:03 PM EDT SIGNS AND SYMPTOMS: Trauma TECHNOLOGIST COMMENTS: Diffuse body pain s/p fall down steps today. Known splenic hemorrhage. QUESTION FOR THE RADIOLOGIST: R/O Liver/Spleen Trauma, splenic lac PROTOCOL: Axial CT images of the abdomen/pelvis were obtained with IV contrast. CONTRAST: TECHNIQUE: Multiple detector CT axial slices of the abdomen and pelvis were obtained with IV contrast. Multiplanar reformats were performed and viewed on a separate workstation and reviewed to further define anatomy and possible pathology. COMPARISON: CT abdomen and pelvis January 16, 2019, 1946 hours FINDINGS: The lung bases appear unremarkable. The liver appears normal in size and overall attenuation with no focal lesion. Serpiginous areas of low-attenuation are noted within the substance of the spleen consistent with laceration. Fluid is noted between the spleen and the left lateral abdominal wall with attenuation of 60 5H consistent with hemorrhage. Additional intraperitoneal hemorrhage is noted between the liver and the right lateral abdominal wall with fluid extending into the deep pelvis. The gallbladder, pancreas and adrenals appear unremarkable. The kidneys concentrate and excrete contrast satisfactorily with no focal lesion identified. The stomach, small bowel and colon appear unremarkable. The bladder, uterus and adnexa appear unremarkable with a corpus luteum noted on the right. No free intraperitoneal air. The aorta and retroperitoneum are unremarkable. The study viewed at bone window appears unremarkable. IMPRESSION: Splenic laceration with hemoperitoneum. A subcapsular splenic hematoma may be present as well. No significant change from prior study. Electronically signed by:Jennifer Amaro. Transcribed by: [email or web address], User Resident: Electronically Signed by: JENNIFER AMARO @ 01/17/2019 08:15 AM Normal [facility] Comment on above: Order Comment: No: D o not add to previous draw CT BRAIN WO CONTRASTon 01-17 CT BRAIN WO CONTRAST [facility] Department of Radiology [address] [place] [id number] Patient Name: BISMARK FOURNIER : 1980 Sex: F Age: Race: White Pt. Location: [id number] Patient Status: I Ordered Date: 01/16/2019 9:55:00 PM Completed Date: 01/16/2019 11:02 PM Requesting Provider: KARLA MARSH Attending Provider: KARLA MARSH Report Copy To: Signs & Symptoms: Trauma History: Patient history not available Comments: R/O Bleed, NO Exam: CT BRAIN WO CONTRAST CT BRAIN WO CONTRAST, CT 3D CERVICAL SPINE WO CONTRAST 01/16/2019 11:02 PM EDT SIGN AND SYMPTOMS: Trauma TECHNOLOGIST COMMENTS: Posterior head and neck pain s/p fall down steps today. QUESTION FOR RADIOLOGIST: R/O Bleed, NO PROTOCOL: Axial CT images of the head were obtained without IV contrast. (accession [id number]), Axial CT images of the spine were obtained without IV contrast. (accession [id number]) TECHNIQUE: Multi detector CT axial slices of the brain were obtained without IV contrast. Helical, sagittal, coronal and 3D reconstructions were performed and viewed on a separate workstation and reviewed to further define anatomy and possible pathology. COMPARISON: None. FINDINGS: CT brain: Ventricles and sulci are age-appropriate. No mass, mass effect or midline shift. No intracranial hemorrhage. No CT evidence of acute. Skull and paranasal sinuses unremarkable. CT cervical spine: Reversal cervical lordosis possibly caused by patient's cervical collar. Facet alignment normal. Spinous processes intact. No prevertebral soft tissue swelling. Atlantodental distance is normal. Odontoid process and lateral masses of C1 and C2 are unremarkable. No cervical spine fracture or malalignment IMPRESSION: Negative CT brain. No intracranial hemorrhage and no skull fracture Cervical spine fracture or malalignment. Reversal of cervical lordosis possibly caused by the cervical collar Electronically signed by:Sole Hayes. Transcribed by: [email or web address], User Resident: Electronically Signed by: SOLE HAYES @ 01/17/2019 11:20 AM Normal [facility] Comment on above: Order Comment: No: D o not add to previous draw CT CHEST W CONTRASTon 2018 CT CHEST W CONTRAST [facility] Department of Radiology [address] [place] [id number] Patient Name: BISMARK FOURNIER : 1980 Sex: F Age: Race: White Pt. Location: [id number] Patient Status: I Ordered Date: 01/16/2019 9:55:00 PM Completed Date: 01/16/2019 11:03 PM Requesting Provider: KARLA MARSH Attending Provider: KARLA MARSH Report Copy To: Signs & Symptoms: Chest Pain History: Patient history not available Comments: Other, rib fxs Exam: CT CHEST W CONTRAST CT CHEST W CONTRAST 01/16/2019 11:03 PM EDT SIGN AND SYMPTOMS: Chest Pain TECHNOLOGIST COMMENTS: Diffuse body pain s/p fall down steps today. Known splenic hemorrhage. QUESTIONS PER RADIOLOGIST: Other, rib fxs PROTOCOL: Axial CT images of the chest were obtained with IV contrast. CONTRAST: Contrast: OMNIPAQUE 350 (LOCM), 100 milliliter, Intravenous TECHNIQUE: Multidetector CT axial slices of the chest were obtained with IV contrast. Multiplanar reformats were performed and viewed on a separate workstation and reviewed to further define anatomy and possible pathology. Appropriate CT dose lowering techniques were utilized. COMPARISON: None. FINDINGS: Lower neck: Thyroid gland within normal limits, no supraclavicle adenopathy. Vessels: Within normal limits. No atherosclerotic changes in the aorta and coronary arteries. Mediastinum and Cherise: Within normal limits. Heart: Normal size. No pericardial effusion. Airways: Within normal limits Lungs: 6 mm noncalcified, non-spiculated lung nodule the right upper lobe best seen on axial image 154. Pleura: Within normal limits. Chest Wall: Within normal limits. Upper Abdomen: Please see CT abdomen pelvis from the same day for further discussion. Bones: Within normal limits. IMPRESSION: No identifiable rib fractures. 6 mm noncalcified not spiculated lung nodule the right upper lobe, follow-up CT in 6 months is recommended. Approved by:Jeffery Srivastava on 01/17/2019 11:52 AM EDT. I, Claudia Alegria, have reviewed the images and report and concur with these findings. Electronically signed by:Claudia Alegria. Transcribed by: [email or web address], User Resident: JEFFERY SRIVASTAVA Electronically Signed by: CLAUDIA ALEGRIA @ 01/17/2019 06:30 PM I personally read this/these film(s) with this resident Normal [facility] Comment on above: Order Comment: No: D o not add to previous draw HEMATOCRITon 01-17-2019 Hematocrit Volume Fraction (Bld) 29.2 % Low 36.0-45.0 [facility] Comment on above: Order Comment: No: D o not add to previous draw Performed By: #### 3 1079 #### [facility] [address] [place] [address], [facility] Hematocrit Volume Fraction (Bld) 28.9 % Low 36.0-45.0 [facility] Comment on above: Order Comment: No: D o not add to previous draw Performed By: #### 3 1079 #### [facility] [address] [place] [address], [facility] HEMOGLOBINon 01-17-2019 Hemoglobin mass conc (Bld) 9.9 g/dL Low 12.0-15.0 [facility] Comment on above: Order Comment: No: D o not add to previous draw Performed By: #### 3 1079 #### [facility] [address] [place] [address], [place] Hemoglobin mass conc (Bld) 10.1 g/dL Low 12.0-15.0 [facility] Comment on above: Order Comment: No: D o not add to previous draw Performed By: #### 3 1079 #### [facility] [address] [place] [address], [facility] History and Physicalon 01-17 History and Physical MR#: [id number] [facility] Pt. Name: Bismark Fournier Admitted: 01/16/2019 Date of : 1980 Attending Physician: Karla Marsh MD Room #: [id number] Discharge Date: HISTORY AND PHYSICAL SERVICE: Trauma Surgery. CHIEF COMPLAINT: Splenic laceration. HISTORY OF PRESENT ILLNESS: This is a 38-year-old female, who had fell down several stairs earlier today and had a delayed presentation to an outside hospital. She was shown to have a large splenic laceration on CT of the abdomen and pelvis, and was transferred to our facility for further management. The patient on arrival is hemodynamically stable. She had 1 unit of blood transfused during transport. She has only complained of abdominal pain. No other issues of dizziness, fatigue, chest pain, or shortness of breath. PAST MEDICAL HISTORY: None. PAST SURGICAL HISTORY: . ALLERGIES: No known drug allergies. SOCIAL HISTORY: Current nonsmoker. No alcohol or illicit drug use. FAMILY HISTORY: Noncontributory. MEDICATIONS: None. REVIEW OF SYSTEMS: As listed above. PHYSICAL EXAMINATION: VITAL SIGNS: Temperature 99.4, heart rate 86, respiratory rate 18, blood pressure 111/62, O2 saturation 98% on room air. GENERAL: Alert and oriented x3, in no acute distress. HEENT: Normocephalic, atraumatic. Pupils equally round and reactive to light. Extraocular muscles intact. Mucous membranes moist. NECK: Supple. No lymphadenopathy. No JVD. No tracheal deviation. CARDIOVASCULAR: Regular rate and rhythm. No murmurs, gallops, or rubs. PULMONARY: Clear to auscultation bilaterally. Normal work of breathing. GI: Soft, nondistended, positive tenderness mostly in the left upper quadrant with active guarding. MUSCULOSKELETAL: Full range of motion x4. No edema. SKIN: Warm and dry. No pallor or bruising. NEURO: Motor and sensation intact. No focal neurological deficits. Cranial nerves II through XII grossly intact. LABORATORY DATA: Lactate 0.5. White blood cells 10.4, hemoglobin 11.4, hematocrit 32.4, platelets 177. IMAGING: CT head, grossly negative. CT cervical spine, no preliminary reads, but on personal exam grossly negative. CT chest, no preliminary reads, but grossly negative. CT abdomen, significant splenic laceration likely grade 4 with surrounding hematoma and mild amount of free fluid in the pelvis. No other traumatic injuries are identified. ASSESSMENT: This is a 38-year-old female, status post fall down stairs with grade 4 splenic laceration. Currently hemodynamically stable with adequate hemoglobin. PLAN: 1. Neuro: Pain control with morphine p.r.n. and Percocet p.r.n. 2. Cardio: Continue site monitor for hemodynamic instability. 3. Pulmonary: Continue room air incentive spirometry. 4. GI: N.p.o. except medications and ice chips. Pepcid for GI prophylaxis. Colace and bisacodyl daily p.r.n. for constipation, Zofran for nausea. 5. : Normal saline at 125 an hour for resuscitative fluids. Does not need Coe at this time. May use bedpan for now. 6. Endocrine: No acute needs. We will monitor blood glucose levels. 7. Musculoskeletal: Bedrest until stabilized from splenic hemorrhage. 8. Heme: q.6 hemoglobin checks. Consider Vascular consult for possible splenic artery and embolization. 9. ID: No need for antibiotics at this time. We will administer splenic vaccinations in case of splenectomy. 10. Prophylaxis. No anticoagulation due to hemorrhage. SCDs only. Electronically Signed by: Karla Marsh MD 01/25/2019 11:26 A Karla Marsh MD I personally saw this patient on the day of the encounter, performed the sanchez portion(s) of the service and participated in the management and confirm the resident's documentation. Please note there may be an additional personal documentation from me. Date Dict: 01/17/2019/02:46 Ector/Melissa Reid MD Date Trans: 01/17/2019 04:34 Ector/ana [id number] Normal [facility] LACTATE BLOODon 01-17-2019 Lactate molar conc 0.4 mmol/L Low 0.5-2.2 [facility] Comment on above: Order Comment: No: D o not add to previous draw Performed By: #### 3 1199 #### [facility] [address] [place] [address], [facility] Lactate molar conc 0.6 mmol/L Normal 0.5-2.2 [facility] Comment on above: Order Comment: No: D o not add to previous draw Performed By: #### 3 6553 #### [facility] [address] [place] [address], [facility] Lactate molar conc 0.5 mmol/L Normal 0.5-2.2 [facility] Comment on above: Order Comment: No: D o not add to previous draw Performed By: #### 1 0054, 78736 #### [facility] [address] [place] [address], [facility] MAGNESIUM BLOODon 01-17-2019 Magnesium mass conc 1.9 mg/dL Normal 1.9-2.7 [facility] [place] [facility] Comment on above: Order Comment: No: D o not add to previous draw Performed By: #### 0 0121, 10024, 76234 #### [facility] [address] [place] [address], [facility] PHOSPHORUS BLOODon 9 Phosphate mass conc 3.5 mg/dL Normal 2.5-5.0 [facility] [place] [facility] Comment on above: Order Comment: No: D o not add to previous draw Performed By: #### 0 0121, 75915, 22030 #### [facility] [address] [place] [address], [facility] TYPE AND SCREENon 01-17-2019 ABO INTERPRETATION A Normal [facility] Comment on above: Performed By: #### 6 2586 #### [facility] [address] [place] [address], [facility] RH INTERPRETATION Positive Normal [facility] Comment on above: Performed By: #### 6 2586 #### [facility] [address] [place] [address], [facility] RBC'S 4 UNITSon 01-16-2019 CROSSMATCH INTERP 1 COMP Normal [facility] Comment on above: Performed By: #### 8 6004 #### [facility] [address] [place] [address], [place] CROSSMATCH INTERP 2 COMP Normal [facility] [place] [facility] Comment on above: Performed By: #### 8 6004 #### [facility] [address] [place] [address], [place] CROSSMATCH INTERP 3 COMP Normal [facility] Comment on above: Performed By: #### 8 6004 #### [facility] [address] [place] [address], [place] CROSSMATCH INTERP 4 COMP Normal [facility] [place] [facility] Comment on above: Performed By: #### 8 6004 #### [facility] [address] [place] [address], [place] Protein mass conc 336 g/dL Normal [facility] Comment on above: Performed By: #### 8 6004 #### [facility] [address] [place] [address], [place] Protein mass conc RE Normal [facility] Comment on above: Result Comment: Resu lt changed by IF on 01/19/2019 12:18. The previous value was XM. Result changed by IF on 01/19/2019 14:48. The previous value was XX. Performed By: #### 8 6004 #### [facility] [address] [place] [address], [place] Result Comment: Resu lt changed by IF on 01/20/2019 07:18. The previous value was XM. UNIT ABO 1 A Normal [facility] Comment on above: Performed By: #### 8 6004 #### [facility] [address] [place] [address], [place] UNIT ABO 2 A Normal [facility] Comment on above: Performed By: #### 8 6004 #### [facility] [address] [place] [address], [place] UNIT ABO 3 A Normal [facility] Comment on above: Performed By: #### 8 6004 #### [facility] [address] [place] [address], [facility] UNIT ABO 4 A Normal [facility] Comment on above: Performed By: #### 8 6004 #### [facility] [address] [place] [address], [facility] UNIT ID 1 [id number] Normal [facility] Comment on above: Performed By: #### 8 6004 #### [facility] [address] UNIT ID 2 [id number] Normal [facility] Comment on above: Performed By: #### 8 6004 #### [facility] [address] UNIT ID 3 [id number] Normal [facility] Comment on above: Performed By: #### 8 6004 #### [facility] [address] UNIT ID 4 [id number] Normal [facility] Comment on above: Performed By: #### 8 6004 #### [facility] [address] [place] [address], [facility] UNIT RH 1 Positive Normal [facility] Comment on above: Performed By: #### 8 6004 #### [facility] [address] [place] [address], [facility] UNIT RH 2 Positive Normal [facility] Comment on above: Performed By: #### 8 6004 #### [facility] [address] [place] [address], [facility] UNIT RH 3 Positive Normal [facility] Comment on above: Performed By: #### 8 6004 #### [facility] [address] [place] [address], [facility] UNIT RH 4 Positive Normal [facility] Comment on above: Performed By: #### 8 6004 #### [facility] [address] [place] [address], [facility] TOX PANEL URINEon 01-16-2019 50 THC Positive Abnormal NEGATIVE [facility] Comment on above: Order Comment: No: D o not add to previous draw Performed By: #### 3 1079 #### [facility] [address] [place] [address], [facility] BARBITURATES Negative Normal NEGATIVE [facility] Comment on above: Order Comment: No: D o not add to previous draw Performed By: #### 3 1079 #### [facility] [address] [place] [address], [facility] Benzodiazepines Ql (U) Negative Normal NEGATIVE [facility] Comment on above: Order Comment: No: D o not add to previous draw Performed By: #### 3 1079 #### [facility] [address] [place] [address], [facility] Cocaine Ql (U) Negative Normal NEGATIVE [facility] Comment on above: Order Comment: No: D o not add to previous draw Performed By: #### 3 1079 #### [facility] [address] [place] [address], [facility] Methadone Ql (U) Negative Normal NEGATIVE [facility] Comment on above: Order Comment: No: D o not add to previous draw Performed By: #### 3 1079 #### [facility] [address] [place] [address], [facility] MONO AMPHET Negative Normal NEGATIVE [facility] Comment on above: Order Comment: No: D o not add to previous draw Performed By: #### 3 1079 #### [facility] [address] [place] [address], [facility] Opiates Ql (U) Positive Abnormal NEGATIVE [facility] Comment on above: Order Comment: No: D o not add to previous draw Performed By: #### 3 1079 #### [facility] [address] [place] [address], [facility] Phencyclidine Ql (U) Negative Normal NEGATIVE [facility] Comment on above: Order Comment: No: D o not add to previous draw Performed By: #### 3 1079 #### [facility] [address] [place] [address], [place] Protein mass conc (U) Negative Normal NEGATIVE [facility] Comment on above: Order Comment: No: D o not add to previous draw Performed By: #### 3 1079 #### [facility] [address] [place] [address], [facility] TRICYCLICS Negative Normal NEGATIVE [facility] Comment on above: Order Comment: No: D o not add to previous draw Performed By: #### 3 1079 #### [facility] [address] [place] [address], [facility] Encounters Encounter Date Encounter Type Care Provider Facility Start: 02-17-2024 End: 02-18-2024 ambulatory [facility] Start: 02-17-2024 Encounter for gynecological examination (general) (routine) without abnormal findings [facility] Start: 02-10-2024 End: 02-10-2024 ambulatory [facility] Start: 01-26-2024 End: 01-26-2024 ambulatory JUANJOSE WOODS Not Available Start: 01-03-2024 End: 01-03-2024 ambulatory [facility] Start: 12-01-2023 End: 12-02-2023 ambulatory [facility] Start: 11-18-2023 End: 11-18-2023 ambulatory [facility] Start: 11-01-2023 End: 11-01-2023 ambulatory [facility] Start: 11-02-2022 ambulatory SHAILA MATHEWMER Facility: Start: 02-06-2019 End: 02-07-2019 Patient encounter procedure KARLA MARSH Facility:[facility] Start: 01-24-2019 End: 01-26-2019 Evaluation and management of inpatient EDSON HENDERSON Facility:[facility] Start: 01-16-2019 End: 01-19-2019 Evaluation and management of inpatient KARLA MARSH Facility:[facility] Procedures Date Procedure Procedure Detail Performing Clinician Start: 11-18-2023 Follow-up visit Follow-up BLANCA LORENZO Start: 01-17-2019 INTRODUCTION OF SERUM/TOX/VACCINE INTO MUSCLE, PERC APPROACH NAHID MARTINEZ Start: 01-17-2019 Antibody screen KARLA MARSH Comment on above: Performed By: #### 6 2586 #### [address] [place], [place] [id number] [place] [address] Payers Date Payer Category Payer Unknown [id number] 1980 Unknown [id number] 2.16.8 [id number] 1980 Unknown [id number] 2.16.8 40.1.911262.3.579.2.647 1980 Unknown [id number] 2.16.8 40.1.121782.3.579.2.647 1980 Unknown [id number] 2.16.84 0.1.973483.3.579.2.593 1980 Unknown [id number] 2.16.8 40.1.574426.3.579.2.1286 1980 Unknown [id number] 2.16.84 0.1.060000.3.579.2.1259 1980 Unknown [id number] 2.16.8 40.1.824465.3.579.2.1286 1980 Unknown [id number] 2.16.8 40.1.801234.3.579.2.1286 1980 Unknown [id number] 2.16.8 40.1.084034.3.579.2.1286 1980 Unknown [id number] 2.16.8 40.1.536885.3.579.2.1286 1980 Unknown [id number] 2.16.84 0.1.876081.3.579.2.1286 1980 Unknown [id number] 2.16.8 40.1.729057.3.579.2.173 1959 Self-pay [id number] Unknown [id number] Summary Purpose Family History No Family History Records FoundNo Family History Records FoundNo Family History Records FoundNo Family History Records FoundNo Family History Records FoundNo Family History Records Found Advance Directives No Advanced Directives Records FoundNo Advanced Directives Records FoundNo Advanced Directives Records FoundNo Advanced Directives Records FoundNo Advanced Directives Records FoundNo Advanced Directives Records Found Hospital Course Note MR#: [id number] [facility] Pt. Name: Bismark Fournier Admitted: 01/16/2019 Discharged: 01/19/2019 Date of : 1980 Physician: Nahid Martinez MD DISCHARGE SUMMARY PRIMARY DIAGNOSIS: Fall down stairs. SECONDARY DIAGNOSIS: Grade 3-4 splenic laceration. HOSPITAL COURSE: The patient is a 38-year-old female, who unfortunately fell down 3 flights of stairs and sustained a splenic laceration. She did have some drop in her hemoglobin and was admitted to the ICU with bedrest precautions and was monitored closely with serial abdominal exams as well as with serial hemoglobin checks. Her hemoglobin remained stable. She was finally discharged after nonoperative management in good condition with instructions to follow up in trauma clinic or call immediately if there were any concerns. She was sent with instructions to resume all of her home medications. Electronically Signed by: Nahid Martinez MD 01/23/2019 07:05 A Nahid Martinez MD I (more content not included)... Note MR#: [id number] I [facility] Pt. Name: Bismark Fournier Admitted: 01/24/2019 Discharged: 01/26/2019 Date of : 1980 Physician: Karla Marsh MD DISCHARGE SUMMARY DISCHARGE DIAGNOSIS: Major splenic laceration s/p fall, anemia-acute blood loss and iron deficient. HOSPITAL COURSE: The patient was recently admitted on January 16, 2019, with a large splenic laceration after falling down 3 flights of stairs at home. They found on CT scan the large splenic laceration which warranted admission. She was sent to the ICU for close observation. She initially was seen at outside hospital and had to be transferred. She did receive 1 unit of blood en route. No other units of blood were given. Hemoglobin was stable during her previous stay. She was discharged in good condition on the . She returned on the with increased pain. Her pain was new to her back. She had an appointment in the trauma clinic, but decided to go to the ER in [place] instead. She was re-ev (more content not included)... Additional Source Comments INFORMATION SOURCE (unrecogn ized section and content) DATE CREATED AUTHOR 02/10/2019 [facility] DATE CREATED AUTHOR AUTHOR'S ORGANIZ ATION 11/03/2022 [facility] DATE CREATED AUTHOR AUTHOR'S ORGANIZ ATION 12/05/2023 [facility] DATE CREATED AUTHOR AUTHOR'S ORGANIZ ATION 01/27/2024 [facility] DATE CREATED AUTHOR AUTHOR'S ORGANIZ ATION 02/12/2024 [facility] DATE CREATED AUTHOR AUTHOR'S ORGANIZ ATION 02/28/2024 [facility] FOR RECORDS PERTAINING TO PATIENTS WHO ARE OR HAVE BEEN ENROLLED IN A CHEMICAL DEPENDENCY/SUBSTANCEABUSE PROGRAM, SOME INFORMATION MAY BE OMITTED. This clinical summary was aggregated from multiple sources. Caution should be exercised in using it in the provision of clinical care. This summary normalizes information from multiple sources, and as a consequence, information in this document may materially change the coding, format and clinical context of patient data. In addition, data may be omitted in some cases. CLINICAL DECISIONS SHOULD BE BASED ON THE PRIMARY CLINICAL RECORDS. [facility]. provides no warranty or guarantee of the accuracy or completeness of information in this document.
--- OUTSIDE RECORDS SUMMARY | 2025-06-16 07:36 | XMS_ITS | Clinical Summary ---
Author Organization [facility] Address [address] [place] [address] Care Team Providers Care Enrobing Machine Corder Name Role Phone Unavailable Primary Care Provider Unavailabl e Social History Tobacco Use Types Packs/Day Years Used Date Smoking Tobacco: Never Assessed Comments Unknown Sex and Gender Information Value Date Recorded Sex Assigned at Not on file Legal Sex Female 7:06 PM EDT Gender Identity Not on file Sexual Orientation Not on file Plan of Treatment Not on file Insurance [facility]
--- OUTSIDE RECORDS SUMMARY | 2025-06-16 07:36 | XMS_ITS | Clinical Summary ---
Author Organization Workable tem Address [id number] [address] [place] [address] Care Team Providers Care Drawbridge Tender Name Role Phone No Pcp, No Pcp Primary Care Provider Unavailabl e Allergies No known active allergies Medications No known medications Active Problems Problem Noted Date Diagnosed Date Primary osteoarthritis of right knee 11/03/2023 Iliotibial band syndrome of right side Laceration of spleen 01/23/2019 Fall 01/23/2019 Social History Tobacco Use Types Packs/Day Years Used Date Smoking Tobacco: Every Day Smokeless Tobacco: Never Alcohol Use Standard Drinks/Week Comments Yes 0 (1 standard drink = 0.6 oz pur e alcohol) Childcare Answer Date Recorded Childcare Unknown 03/27/2019 Employment Answer Date Recorded Employment Unknown 03/27/2019 Hunger Screening Answer Date Recorded Within the past 12 months we worried whether our food would run out before we got money to buy more. Never True 01/03/2024 Within the past 12 months th e food we bought just didn't last and we didn't have money to get more. Never True 01/03/2024 Purpose - Life Answer Date Recorded Purpose and direction in life Unknown Comments No Sex and Gender Information Value Date Recorded Sex Assigned at Not on file Legal Sex Female 3:15 PM EDT Gender Identity Not on file Sexual Orientation Not on file Last Filed Vital Signs Vital Sign Reading Time Taken Comments Blood Pressure 124/86 08/29/2023 8:13 AM EST Pulse 102 08/29/2023 8:13 AM EST Temperature 36.8 C (98.3 F) 08/29/2023 8:13 AM EST Respiratory Rate 20 08/29/2023 8:13 AM EST Oxygen Saturation 100% 08/29/2023 8:13 AM EST Inhaled Oxygen Concentration - - Weight 63.5 kg (140 lb) 01/03/2024 12:15 PM EDT Height 160 cm (5' 3 ) 01/03/2024 12:15 PM EDT Body Mass Index 24.8 01/03/2024 12:15 PM EDT Plan of Treatment Health Maintenance Due Date Last Done Comments Depression Screening 1992 DTaP,Tdap and Td Vaccines (1 - Tdap) 1999 Pap Smear 2001 Adult BMI Screening 01/02/2025 01/03/2024 Tobacco Screening 01/02/2025 01/03/2024 Influenza Vaccine 06/18/2025 Medical Devices Not on file Insurance [facility] Care Teams Drawbridge Tender Relationship Specialty Start Date End Date No Pcp, [place] [address] PCP - General Family Medicine 11/18/23
--- OUTSIDE RECORDS SUMMARY | 2025-06-16 07:36 | XMS_ITS | Encounter Summary ---
Author Organization [facility] [facility] tem Address [id number] [address] 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); Tear of lateral meniscus of right knee, current, unspecified tear type, subsequent encounter Social History Tobacco Use Types Packs/Day Years Used Date Smoking Tobacco: Every Day Smokeless Tobacco: Never Alcohol Use Standard Drinks/Week Comments Yes 0 (1 standard drink = 0.6 oz pur e alcohol) Childcare Answer Date Recorded Childcare Unknown 03/27/2019 Employment Answer Date Recorded Employment Unknown 03/27/2019 Purpose - Life Answer Date Recorded Purpose and direction in life Unknown Comments No Sex and Gender Information Value Date Recorded Sex Assigned at Not on file Legal Sex Female 3:15 PM EDT Gender Identity Not on file Sexual Orientation Not on file documented as of this encounter Plan of Treatment Not on file documented as of this encounter Visit Diagnoses Diagnosis Disorder of right superficial peroneal nerve- Primary Tear of lateral meniscus of right knee, current, unspecified tear type, subsequent encounter documented in this encounter Care Teams Rehab Specialist Relationship Specialty Start Date End Date No Pcp, [place] [address] PCP - General Family Medicine 11/18/23 documented as of this encounter
--- OUTSIDE RECORDS SUMMARY | 2025-06-16 07:36 | XMS_ITS | Encounter Summary ---
Author Organization [facility] Address [address], [address] [place] [address] Care Team Providers Care Motor Checker Name Role Phone Unavailable Primary Care Provider Unavailabl e Encounter Details Date Type Department Care Team (Late st Contact Info) Description 02/05/2014 FollowUp Telephone Encounter [facility] [address] [place], [place] [id number] Adore De RN Social History Tobacco Use Types Packs/Day Years Used Date Smoking Tobacco: Former Cigarettes Alcohol Use Standard Drinks/Week Comments No 0 (1 standard drink = 0.6 oz pur e alcohol) Comments No Sex and Gender Information Value Date Recorded Sex Assigned at Not on file Legal Sex Female 1:12 PM EDT Gender Identity Not on file Sexual Orientation Not on file documented as of this encounter Plan of Treatment Not on file documented as of this encounter Visit Diagnoses Not on filedocumented in this encounter
--- OUTSIDE RECORDS SUMMARY | 2025-06-16 07:36 | XMS_ITS | Clinical Summary ---
Author Organization [facility] Address [address] [place] [address], [address] [place] [address] Care Team Providers Care Bomb Loader Name Role Phone Unavailable Primary Care Provider Unavailabl e Allergies No known active allergies Medications ibuprofen (ADVIL;MOTRIN) 800 MG tablet TAKE 1 TABLET BY MOUTH IN THE MORNING, AT NOON, AND IN THE EVENING WITH MEALS 12/20/2023 Active Active Problems No known active problems Resolved Problems Problem Noted Date Diagnosed Date Resolved Date S/P primary low transverse 01/30/2014 02/05/2014 Failure to progress in labor 01/30/2014 02/05/2014 with one fetus 01/29/2014 Family History Medical History Relation Name Comments Cancer Maternal Grandmother breast with mets Cancer Mother breast Hypertension Mother Relation Name Status Comments Brother Alive Father Alive Maternal Grandfather Maternal Grandmother Mother Alive Paternal Grandfather Paternal Grandmother Sister 1 Alive Sister 2 Alive Social History Tobacco Use Types Packs/Day Years Used Date Smoking Tobacco: Former Cigarettes Smokeless Tobacco: Never Tobacco Cessation:Ready to Q uit: Yes Alcohol Use Standard Drinks/Week Comments No 0 (1 standard drink = 0.6 oz pur e alcohol) Comments No Sex and Gender Information Value Date Recorded Sex Assigned at Not on file Legal Sex Female 1:12 PM EDT Gender Identity Not on file Sexual Orientation Not on file Last Filed Vital Signs Vital Sign Reading Time Taken Comments Blood Pressure 120/78 02/17/2024 1:18 PM EDT Pulse 84 08/01/2014 10:37 AM EDT Temperature 37.1 C (98.8 F) 02/01/2014 8:30 AM EDT Respiratory Rate 18 02/01/2015 10:17 AM EDT Oxygen Saturation 95% 01/30/2014 1:15 AM EDT Inhaled Oxygen Concentration - - Weight 68 kg (150 lb) 02/17/2024 1:18 PM EDT Height 165.1 cm (5' 5 ) 02/17/2024 1:18 PM EDT Body Mass Index 24.96 02/17/2024 1:18 PM EDT Plan of Treatment Health Maintenance Due Date Last Done Comments Depression Screen 1992 Varicella vaccine (1 of 2 - 13+ 2-dose series) 1993 Hepatitis C screen 1998 DTaP/Tdap/Td vaccine (1 - Tdap) 1999 Hepatitis B vaccine (1 of 3 - 19+ 3-dose series) 1999 HPV (without or with Pap) 2010 Breast cancer screen 2020 Lipids 2020 COVID-19 Vaccine (2023-2 5 season) 2024 Colonoscopy 2025 Colorectal Cancer Screen 2025 FIT/FOBT: Average risk 2025 Fecal-DNA (Cologuard): [place] ge risk 2025 Sigmoidoscopy/CT colonography 2025 Flu vaccine (#1) 05/18/2025 Cervical cancer screen 02/16/2027 Pap smear 02/16/2027 02/17/2024, 04/24/2014, 03/01/2013 HIV screen Completed 06/07/2013 HPV vaccine (No Doses Required) Completed Hepatitis A vaccine Aged Out No longe r eligible based on patient's age to complete this topic Hib vaccine Aged Out No longer eligi ble based on patient's age to complete this topic Meningococcal (ACWY) vaccine Aged Out No longer eligible based on patient's age to complete this topic Meningococcal B vaccine Aged Out No l onger eligible based on patient's age to complete this topic Pneumococcal 0-49 years Vaccine Aged Out No longer eligible b ased on patient's age to complete this topic Polio vaccine Aged Out No longer elig ible based on patient's age to complete this topic Procedures Procedure Name Priority Date/Time Associated Diagnosis Comments CIGAR PACKER CYTOLOGY Routine 02/17/2024 12:00 AM EDT HIV RAPID 1&2 Routine 06/07/2013 10:18 AM EDT from Last 3 Months or Most Recently Relevant to Health Maintenance Results * CIGAR PACKER Cytology (02/17/2024 12:00 AM EDT) Cytology Report Path Number: [id number] DIAGNOSIS Imaged ThinPrep Pap - Cervical (1 monolayer slide): Specimen Adequacy: Satisfactory for evaluation. - Endocervical/trans formation zone component present. Descriptive Diagnosis: Negative for intraepithelial lesion or malignancy. Comments: Specimen was screened at [facility], [address] [place] [address] Cytotech Screener: CS Electronically Signed Out MORAIMA Chilel(ASCP) cs/02/27/2024 Source of Specimen: A: Imaged ThinPrep Pap - Cervical (1 monolayer slide) HPV Reflex?........... 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 The Pap smear is a screening test primarily for squamous epithelial lesions, which is subject to both false negative and false positive results. Your patient should be reminded to consult you immediately if she experiences any suspicious signs or symptoms, regardless of her Pap smear result. GYNECOLOGIC CYTOLOGY REPORT Patient Name: LEOBARDO FOURNIERRA [facility] Rec: [id number] [facility] ANATOMIC PATHOLOGY [address] [place], [place] [address] TOM BAHENA [facility] Tingz CERVICAL MATERIAL 02/17/2024 024 9:04 AM EDT us Arash Botello MD PATHOLOGY/CYTOLOGY ORDERABLES Final Result [facility] [address] [place] [id number] [phone] TOM ISAACKAYLA [facility] * HIV Rapid 1&2 (06/07/2013 10:18 AM EDT) [facility] Rapid HIV 1&2 NONREACTIVE NR 06/07/2013 5:06 PM EDT [facility] Comment: Interpretation: The presence of antibody to HIV and its association with the potential infectivity, transmission or diagnosis of AIDS has not been established. Furthermore, a 'Non-Reactive' test result does not exclude the possibility of exposure to or infection with HIV. If the above test result is 'Reactive', the Laboratory will order the confirmatory test. The performance characteristics of this test were determined by [facility]. It has not been cleared or approved by the U.S. Food and Drug Administration. The FDA has determined that such clearance is not necessary. Performed at [address] [place] [id number] 06/07/2013 10:1 8 AM EDT 06/07/2013 10:19 AM EDT Gladis Dallas TIRE MOLD ENGRAVER - CNM IMMUNOLOGY ORDERABLES Final Result [facility] [address] [place], [place] [address] [phone] [facility] from Last 3 Months or Most Recently Relevant to Health Maintenance Insurance [id number] Advance Directives * Full Code (Latest Code Status on File) Date Activated Date Inactivated Comments 01/29/2014 11:34 PM 02/01/2014 4:54 PM * Full Code Date Activated Date Inactivated Comments 01/29/2014 9:48 PM 01/29/2014 11:34 PM * Full Code Date Activated Date Inactivated Comments 01/29/2014 4:58 AM 01/29/2014 9:48 PM
[2025-06-16 07:50] LABS: Hematocrit 43.3 % (36.0-48.0); Hemoglobin 15.0 g/dL (12.0-16.0); Immature Granulocytes Abs Auto 0.01 10^3/uL (0.00-0.03); Immature Granulocytes Pct Auto 0.1 % (0.0-0.5); Lymphocytes Absolute Auto 2.3 10^3/uL (1.2-3.8); Mean Corpuscular HGB Conc 34.6 g/dL (29.9-35.2); Mean Corpuscular Hemoglobin 33.8 pg (26.7-34.0); Mean Corpuscular Volume 97.5 fL (81.0-99.0); Platelet Count 260 10^3/uL (150-450); Red Blood Count 4.44 10^6/uL (4.20-5.40); White Blood Count 7.5 10^3/uL (4.0-11.0)
[2025-06-16 09:05] LABS: Iron 66.0 ug/dL (50.0-170.0)
[2025-06-16 09:18] LABS: Alanine Aminotransferase 29 U/L (14-59); Albumin Globulin Ratio 1.2; Albumin Level 3.9 g/dL (3.4-5.0); Alkaline Phosphatase 45 U/L (46-116); Anion Gap 16.2; Aspartate Amino Transferase 19 U/L (15-37); Blood Urea Nitrogen 6.0 mg/dL (7.0-18.0); Calcium 8.8 mg/dL (8.5-10.1); Carbon Dioxide 24.9 mmol/L (21.0-32.0); Chloride 105 mmol/L (98-107); Cholesterol 158 mg/dL (<=200); Estimated GFR (African America >60 (>=60 mL/min/1.73m^2); Estimated GFR (Non-African Ame >60 (>=60 mL/min/1.73m^2); Free T3 2.61 pg/mL (2.18-3.98); Globulin 3.3 g/dL; Glucose 99 mg/dL (74-106); HDL Cholesterol 90 mg/dL (40-60); Potassium 4.1 mmol/L (3.5-5.1); Sodium 142 mmol/L (136-145); Thyroid Stimulating Hormone 2.545 uIU/mL (0.358-3.740); Total Protein 7.2 g/dL (6.4-8.2); Triglycerides 61 mg/dL (<=150); VLDL CHOLESTEROL 12.2 mg/dL
== END 2025-06-16 07:31 | disposition home or self-care (01) ==
PROVIDERS: PCP Nurse Practitioner Family; Visit Provider Nurse Practitioner Family
DX: Z00.00 Encounter for general adult medical examination without abnormal findings (principal)
CPT/HCPCS: 36415; 80053; 80061; 82306; 83036; 83525; 83540; 84436; 84443; 84481; 85025

== ENCOUNTER 2025-08-28 11:11 | Outpatient (OUT) | payer BC, SELFPAY ==
--- OUTSIDE RECORDS SUMMARY | 2024-05-11 06:10 | XMS_ITS ---
Author Organization [facility] Address [address] [place] [address] Care Team Providers Care Adjunct Faculty Mathematics Department Name Role Phone Dr. Angel Cho Primary Care Provider Raul Sarah [phone] REASON FOR VISIT broken front tooth Encounters Encounter Location Date Provider Diagnosis [address] [place] [address] 05/11/2024 Raul Sarah Plan Of Treatment No Information Progress Notes * PRIYA GARVINOB:1980 (45 yo F)Acc No.[id number]:05/11/2024 Patient:?GARVIN BISMARK :?Raul Sarah DDSDOB:1980???Age:44 Y ???Sex:FemaleDate:05/11/2024hone:[phone]:[id number]:Dr. Angel Cho Subjective: * Chief Complaints: * B roken front tooth Billing Information: * Procedure Codes: * Electronic signature of Raul Sarah DDS on 08/28/2025 at 11:13 AM ESTSign off status: Pending * Provider: Ector Sarah DDS Date: 05/11/2024 Generated for Printing/Faxing/eTransmitting on:?08/28/2025 11:13 AM EST
--- NOTE | 2025-08-28 11:14 | MM_ITS ---
Patient Name: BISMARK GARVIN MR#: [id number] : 1980 Exam Date: 08/28/2025 Ordering Doctor: SHAILA TREVINO CNP RADIOLOGY REPORT PROCEDURE: MM TOMOSYNTHESIS SCREENING BI COMPARISON: None. INDICATIONS: Screening Calculator Name NCI Breast Cancer Risk Assessment Tool 5 Year Breast Cancer Risk Not Reported. Lifetime Breast Cancer Risk Not Reported. Personal Breast Cancer No Personal Ovarian Cancer No Treatments None Family Cancers None LOCATION: [facility] BREAST COMPOSITION: There are scattered areas of fibroglandular density. FINDINGS: DIAGNOSTIC CATEGORY 0--INCOMPLETE: NEED ADDITIONAL IMAGING EVALUATION. LEFT BREAST: There is a 4 mm focal asymmetry along the medial aspect of the left breast/fracture region 1.5 cm from the nipple at approximately the 9 o'clock position. RIGHT BREAST: No significant suspicious finding. Benign-appearing calcifications are present. RECOMMENDATIONS: ADDITIONAL MAMMOGRAPHIC VIEWS REQUIRED: LEFT BREAST - spot compressed views of the left breast with ultrasound if necessary is recommended. Dictated by: Dre Sanabria MD on 08/28/2025 at 12:26 Approved by: Dre Sanabria MD on 08/28/2025 at 12:29
--- OUTSIDE RECORDS SUMMARY | 2025-08-28 11:14 | XMS_ITS | Clinical Summary ---
Author Organization [facility] Address [address] [place] [address] Care Team Providers Care Coil Spring Assembler Name Role Phone Unavailable Primary Care Provider Unavailabl e Social History Tobacco UseTypesPacks/DayYears UsedDateSmoking Tobacco: Never Assessed CommentsUnknownSex and Gender InformationValueDate RecordedSex Assigned at Not on fileLegal CqtRdhgue56/15/2023 7:06 PM EDTGender IdentityNot on fileSexual OrientationNot on file Plan of Treatment Not on file Insurance
--- OUTSIDE RECORDS SUMMARY | 2025-08-28 11:14 | XMS_ITS | Patient Health Record ---
Author Organization [facility] Address [address] [place] [address] Care Team Providers Care Lease Administrator Name Role Phone Dr. Angel Cho Primary Care Provider Reason For Referral No Information Medications Medication SIG (Take, Route, Frequency, Duration) Notes Start Date End Date Status Ibuprofen 800 MG Tablet 1 tablet with fo od or milk as needed Orally Three times a day 10/28/2022ctiveIbuprofen 800 MG Tablet1 tablet with food or milk as needed Orally Three times a day11/23/2022ctive Plan Of Treatment No Information Insurance Providers Payer Name Payer Address Payer Phone Subscriber Number Group Number Insured Name Patient Relationship to Insured Coverage Start Date Coverage End Date Dental Care[employer]our[employer] e [place] [address] [place] [address] [id number] BISMARK GARVIN Self - patient is the insured 3 Dental Wrap [facility] CareSourcePO [address] [place] [phone] [id number], KENDRASelf - patient is the [id number] 2022zDENTAL DQ [employer] [address] [place] [phone] [id number], KENDRASelf - patient is the [id number] 2022 2022zDental MEDICAID [place] after [employer] [address] [place] [id number], KENDRASelf - patient is the [id number]
--- OUTSIDE RECORDS SUMMARY | 2025-08-28 11:14 | XMS_ITS | Clinical Summary ---
Author Organization [facility] Address [address] [place] [address], [address] [place] [address] Care Team Providers Care Nursing Information Systems Coordinator Name Role Phone Unavailable Primary Care Provider Unavailabl e Allergies No known active allergies Medications MedicationSigDispense QuantityRefillsLast FilledStart DateEnd DateStatus ibuprofen (ADVIL;MOTRIN) 800 MG tablet TAKE 1 TABLET BY MOUTH IN THE MORNING, AT NOON, AND IN THE EVENING WITH MEALS 4Active Active Problems No known active problems Resolved Problems ProblemNoted DateDiagnosed DateResolved DateS/P primary low transverse Failure to progress in laborPregnancy with one fetus Family History Medical HistoryRelationNameCommentsCancerMaternal Grandmotherbreast with mets CancerMotherbreastHypertensionMotherRelationNameStatusCommentsBrotherAliveFather AliveMaternal GrandfatherDeceasedMaternal GrandmotherDeceasedMotherAlivePaternal GrandfatherDeceasedPaternal GrandmotherDeceasedSister 1AliveSister 2Alive Social History Tobacco UseTypesPacks/DayYears UsedDateSmoking Tobacco: FormerCigarettes Smokeless Tobacco: Never Tobacco Cessation:Ready to Q uit: Yes Alcohol UseStandard Drinks/WeekCommentsNo0 (1 standard drink = 0.6 oz pure alcohol)CommentsNoSex and Gender InformationValueDate RecordedSex Assigned at BirthNot on fileLegal NlyNallln51/15/2013 1:12 PM EDTGender Identity Not on fileSexual OrientationNot on file Last Filed Vital Signs Vital SignReadingTime TakenCommentsBlood Qpvosckb648/7805/11/2023 1:18 PM EDT Kkgbr213108/01/2014 10:37 AM OLZUxfafmsdywt01.1 ??C (98.8 ??F)02/01/2014 8:30 AM EDTRespiratory Mase964702/01/2015 10:17 AM EDTOxygen Mnabjjkhte07%01/30/2014 1:15 AM EDTInhaled Oxygen Concentration--Izvzbl71 kg (150 lb)02/17/2024 1:18 PM EDT Hwmrrg470.1 cm (5' 5 )02/17/2024 1:18 PM EDTBody Mass Index24.9602/17/2024 1:18 PM EDT Plan of Treatment Health MaintenanceDue DateLast DoneCommentsDepression Isyuqr3604/20/1992Varicella vaccine (1 of 2 - 13+ 2-dose series)1993Hepatitis C gwpjgu2204/20/1998 DTaP/Tdap/Td vaccine (1 - Tdap)1999Hepatitis B vaccine (1 of 3 - 19+ 3- dose series)1999HPV (without or with Pap)2010reast cancer screen 04/20/20208784Plewbg04/04/3989Waupturodld54/04/2025olorectal Cancer Screen 2025FIT/FOBT: Average risk2025Fecal-DNA (Cologuard): Average risk 2025Sigmoidoscopy/CT ujyoefghdbgl83/04/2025Flu vaccine (#1)05/18/2025 COVID-19 Vaccine ( season)2025ervical cancer xyzwdv7802/16/2027 Pap smear, 04/24/2014, 03/01/2013HIV screenCompleted 06/07/2013HPV vaccine (No Doses Required)CompletedHepatitis A vaccineAged OutNo longer eligible based on patient's age to complete this topicHib vaccineAged Out No longer eligible based on patient's age to complete this topicMeningococcal (ACWY) vaccineAged OutNo longer eligible based on patient's age to complete this topicMeningococcal B vaccineAged OutNo longer eligible based on patient's age to complete this topicPneumococcal 0-49 years VaccineAged OutNo longer eligible based on patient's age to complete this topicPolio vaccineAged OutNo longer eligible based on patient's age to complete this topic Procedures Procedure NamePriorityDate/TimeAssociated DiagnosisCommentsGYN CYTOLOGYRoutine 02/17/2024 12:00 AM EDT HIV RAPID 1&6Urhivlo97/21/2013 10:18 AM EDT from Last 3 Months or Most Recently Relevant to Health Maintenance Results * MEDICAL LAB SCIENTIST Cytology (02/17/2024 12:00 AM EDT)ComponentValueRef RangeTest Method Analysis TimePerformed AtPathologist SignatureCytology ReportPath Number: [id number] DIAGNOSIS Imaged ThinPrep Pap - Cervical (1 monolayer slide): Specimen Adequacy: ? Satisfactory for evaluation. ? - Endocervical/transformation zone component present. Descriptive Diagnosis: ? Negative for intraepithelial lesion or malignancy. Comments: ? 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 GYNECOLOGIC CYTOLOGY REPORT Patient Name: THEODORA FOURNIER [facility] Rec: [id number] [facility] ??[facility] ANATOMIC PATHOLOGY [address] [place] [address]. ??[place], [place] [address] bON [facility] LABSSpecimen (Source)Anatomical Location / LateralityCollection Method / VolumeCollection TimeReceived Time CERVICAL INSCVGBF85/12/2023 9:04 AM EDT Narrative Authorizing ProviderResult TypeResult StatusArash Botello MDPATHOLOGY/CYTOLOGY ORDERABLESFinal ResultPerforming OrganizationAddressCity/State/ZIP CodePhone Number [facility] [address] [place] [address] [facility] * HIV Rapid 1&2 (06/07/2013 10:18 AM EDT)ComponentValueRef RangeTest Method Analysis TimePerformed AtPathologist SignatureRapid HIV 1&2NONREACTIVENR 06/07/2013 5:06 PM EDTMHPN LABComment: ? Interpretation: ? The presence of antibody to HIV and its association with the potential infectivity, transmission or diagnosis of AIDS has not been established. Furthermore, a 'Non-Reactive' test result does not exclude the possibility of exposure to or infection with HIV. If the above test result is 'Reactive', the Laboratory will order the confirmatory test. ? The performance characteristics of this test were determined by [facility]. It has not been cleared or approved by the U.S. Food and Drug Administration. The FDA has determined that such clearance is not necessary. Performed at [address] [place] [address] Specimen (Source)Anatomical Location / LateralityCollection Method / Volume Collection TimeReceived Time06/07/2013 10:18 AM EDT06/07/2013 10:19 AM EDT Narrative Authorizing ProviderResult TypeResult StatusKatlu [place] POST ANESTHESIA ROOM NURSE - CNMIMMUNOLOGY ORDERABLESFinal ResultPerforming OrganizationAddressCity/State/ZIP CodePhone Number [address] [address] [phone] [facility] from Last 3 Months or Most Recently Relevant to Health Maintenance Insurance Advance Directives * Full Code (Latest Code Status on File) Date ActivatedDate InactivatedComments01/29/2014 11:34 PM02/01/2014 4:54 PM * Full Code Date ActivatedDate InactivatedComments01/29/2014 9:48 PM01/29/2014 11:34 PM * Full Code Date ActivatedDate InactivatedComments01/29/2014 4:58 AM01/29/2014 9:48 PM
--- OUTSIDE RECORDS SUMMARY | 2025-08-28 11:14 | XMS_ITS | Patient Health Record ---
Author Organization [facility] [place] Address [address] [place] [address] Care Team Providers Care Spray Booth Operator Name Role Phone Amaris Drew Primary Care Provider [phone] Allergies No Known Allergies Results Component Value Reference Range Notes CBC AUTO DIFF Reviewed date:06/19/2025 11:04:43 AM Interpretation: Performing Lab: Notes/Report: [facility] , White Blood Count 7.5 4.0-11.0 10 3/uL Red Blood Count4.444.20-5.40 10 6/aZXpwvjrhkyz58.012.0-16.0 g/yRRysthxpnyn72.3 36.0-48.0 %Mean Corpuscular Jqvsqd25.581.0-99.0 fLMean Corpuscular Hemoglobin 33.826.7-34.0 pgMean Corpuscular HGB Conc34.629.9-35.2 g/dLRed Cell Distribution Width12.911.0-15.0 %Platelet Fsdzy746145-392 10 3/uLMean Platelet Volume9.39.5- 13.5 fLNeutrophils Percent Auto59.543.0-75.0 %Lymphocytes Percent Auto31.020.5- 60.0 %Monocytes Percent Auto6.61.7-12.0 %Eosinophils Percent Auto2.10.9-7.0 % Basophils Percent Auto0.70.2-2.0 %Immature Granulocytes Pct Auto0.10.0-0.5 % Neutrophils Absolute Auto4.51.4-6.5 10 3/uLLymphocytes Absolute Auto2.31.2-3.8 10 3/uLMonocytes Absolute Auto0.50.3-0.8 10 3/uLEosinophils Absolute Auto0.20.0- 0.7 10 3/uLBasophils Absolute Auto0.10.0-0.1 10 3/uLImmature Granulocytes Abs Auto0.010.00-0.03 10 3/uLPerforming Lab:see note - [facility] GLYCOHEMOGLOBIN A1C Reviewed date:06/19/2025 11:04:43 AM Interpretation: Performing Lab: Notes/Report: [facility] ,Glycohemoglobin A1C5.04.5-6.2 % ADA RECOMMENDED LIMIT 4.0 - 6.0 ADA THERAPEUTIC TARGET < 7.0 ACTION SUGGESTED > 7.0 Estimated Average Duhtsvd35Yaehohfmvx [facility] INSUL[facility] Reviewed date:06/20/2025 09:27:54 AM Interpretation: Performing Lab: Notes/Report: [facility] ,Insulin7.12.6-24.9 uIU/mL Performed at: [facility] [address] [id number] Work Force Advisor: Pino Gutierrez PhD, Phone: [phone] Performing Lab:see [facility] LBPROF 14(COMP METB) Reviewed date:06/19/2025 11:04:43 AM Interpretation: Performing Lab: Notes/Report: [facility] ,Bsbsum598450-241 mmol/LPotassium4.13.5-5.1 mmol/ZEiolzqrd98332-218 mmol/LCarbon Tiztwvy43.921.0-32.0 mmol/LAnion Gap16.8Jvqhphx8879-402 mg/dLBlood Urea Nitrogen 6.07.0-18.0 mg/dLCreatinine0.690.55-1.02 mg/dLEstimated GFR ( Sherry>60 >=60 mL/min/1.73m 2Estimated GFR (Non- Kristin>60>=60 mL/min/1.73m 2BUN Creatinine Ratio8.9Iwzzdjz3.88.5-10.1 mg/dLBilirubin Total0.70.2-1.0 mg/dL Aspartate Amino Bxavszbgznb6281-18 U/LAlanine Zdddsbplsqrywebg5203-03 U/L Alkaline Qennzsnsyab2091-421 U/LTotal Protein7.26.4-8.2 g/dLAlbumin Level3.93.4- 5.0 g/dLGlobulin3.3Albumin Globulin Ratio1.2Performing Lab:see noteML - [facility] LBT4 Reviewed date:06/19/2025 11:04:43 AM Interpretation: Performing Lab: Notes/Report: [facility] ,T4 Thyroxine7.704.80-13.90 ug/dLPerforming Lab:see noteML - [facility] LBTSH Reviewed date:06/19/2025 11:04:43 AM Interpretation: Performing Lab: Notes/Report: [facility] ,Thyroid Stimulating Hormone2.5450.358-3.740 uIU/mLPerforming Lab:see note - [facility] LBVITAMIN D 25 [place] Reviewed date:06/19/2025 11:04:43 AM Interpretation: Performing Lab: Notes/Report: [facility] ,Vitamin D31.8 <20 ng/mL Vit D deficient 20-<30 ng/mL Vit D insufficient 30-100 ng/mL Vit D sufficient >100 ng/mL Potential Toxicity Performing Lab:see noteML - [facility] LBLIPID PROFILE Reviewed date:06/19/2025 11:04:43 AM Interpretation: Performing Lab: Notes/Report: [facility] ,Fweiavwwrcztb64<=150 mg/nPXzafmdxyylm760<=200 mg/dLHDL Jnatinxoead2433-93 mg/dL > or =60 mg/dl - LOW CARDIOVASCULAR RISK <40 mg/dl - HIGH CARDIOVASCULAR RISK LDL Cholesterol Yiezjjshau27.0 <100 mg/dl OPTIMAL 100-129 mg/dl NEAR OR ABOVE OPTIMAL 130-159 mg/dl BORDERLINE HIGH 160-189 mg/dl HIGH >190 mg/dl VERY HIGH VLDL AZNHGSOAOBN26.2Chol HDL Ratio1.8 3.3 - 4.4 LOW RISK 4.4 - 7.1 AVERAGE RISK 7.1 - 11.0 MODERATE RISK >11.0 HIGH RISK Performing Lab:see noteML - [facility] LBIRON Reviewed date:06/19/2025 11:04:43 AM Interpretation: Performing Lab: Notes/Report: [facility] ,Iron66.050.0-170.0 ug/dLPerforming Lab:see noteML - [facility] LB FREE T3 Reviewed date:06/19/2025 11:04:43 AM Interpretation: Performing Lab: Notes/Report: [facility] June T32.612.18-3.98 pg/mLPerforming Lab:see noteML - [facility] LB Reason For Referral No Information Medications Medication SIG (Take, Route, Frequency, Duration) Notes Start Date End Date Status Cephalexin 500 MG 2 capsule Orally BID; Duration : 7 days 5Active Social History Tobacco Use: Social History Observation Description Date Details (start date - stop date) Current Smoker 10/18/2000 - NA Tobacco Use/Smoking Question Answer Notes Patient is a current smoker When did you start smoking?10/18/2000How often do you smoke cigarettes?every day Additional Findings: Tobacco UserModerate cigarette smoker (10-19 cigs/day) Alcohol Screen (Audit-C) Question Answer Notes Did you have a drink containing alcohol in the p ast year? Yes How often did you have 6 or more drinks on one occasion in the past year?Never (0 point)How many drinks did you have on a typical day when you were drinking in the past year?1 or 2 drinks (0 point)How often did you have a drink containing alcohol in the past year?Monthly (2 points)Xidynp9WoracozapcybjkWxxqoopnUNITS-T (Standard) Question Answer Notes Did you have a drink containing alcohol in the p ast year? No Vnqkku4TunmzcmhnlqkeqRldwboil Vital Signs Blood pressure diastolic 68 mm Hg 06/05/2025 Mgxnvg47 in06/05/2025lood pressure zsetwlrg519 mm Hg06/05/20252272Yxyucn814 lbs 06/05/2025BMI22.66 kg/m206/05/2025 Encounters Encounter Location Date Provider Diagnosis [facility] [address] [place] [address] 06/05/2025 Amaris Drew Sebaceous cyst L72.3 and Wellness examination Z00.00 [facility] [address] [place] [address] 06/19/2025 Amaris Drew [facility] [place] [address] 07/05/2025Pamela CramerSebaceous cyst L72.3 Assessments Encounter Date Diagnosis (ICD Code) Assessment Notes Treatment Notes Treatment Clinical Notes Section Notes 06/05/2025 Sebaceous cyst (ICD-10 - L72.3) discussed referral for removal if continues flare up06/05/2025Wellness examination (ICD-10 - Z00.00) ROS done exam done gets paps states going to schedule mammogram 07/05/2025Sebaceous cyst (ICD-10 - L72.3) Plan Of Treatment Pending Test Test Name Order Date HEMOGLOBIN A1C (GLYCO) 06/05/2025 IRON, TOTAL 06/05/2025 LIPID PANEL (CHOL/TRIG/HDL/LDL) 06/05/20 25 VITAMIN D, 25 LEVEL (TOTAL) 06/05/2025 Insulin Level 06/05/2025 THYROID PANEL (T4/TSH/FREE T3) CMP (COMP MET MORAES) w/eGFR CKD-EPI 2024 CBC WITH DIFF 06/05/2025 Insurance Providers Payer Name Payer Address Payer Phone Subscriber Number Group Number Insured Name Patient Relationship to Insured Coverage Start Date Coverage End Date [employer] [address] [place] [address] [id number] Bao Fournier - patient is the insuredCARESOURCE [place] MEDICAIDPO [address] [place] [id number], KendraSelf - patient is the [id number] Medical (General) History Medical History History ICD Code COVID-19 U07.1 Anxiety F41.9 Surgical History Surgery Date(Month/Year) DELIVERY Rt knee arthroscopic [place]
--- OUTSIDE RECORDS SUMMARY | 2025-08-28 11:14 | XMS_ITS | Clinical Summary ---
Author Organization [employer] tem Address [id number] [address] [place] [address] Care Team Providers Care [employer] Name Role Phone No Pcp, No Pcp Primary Care Provider Unavailabl e Allergies No known active allergies Medications No known medications Active Problems ProblemNoted DateDiagnosed DatePrimary osteoarthritis of right knee11/03/2023 Iliotibial band syndrome of right side11/01/2023Laceration of gzigcd2301/23/2019 Fall01/23/2019 Social History Tobacco UseTypesPacks/DayYears UsedDateSmoking Tobacco: Every DaySmokeless Tobacco: NeverAlcohol UseStandard Drinks/WeekCommentsYes0 (1 standard drink = 0.6 oz pure alcohol)ChildcareAnswerDate AjstsjjnSlpoxqajmBitiuuo04/10/2019 EmploymentAnswerDate KcoroyxiFfsnqjxhtdXpkermu22/10/2019Hunger ScreeningAnswer Date RecordedWithin the past 12 months we worried whether our food would run out before we got money to buy more.Never True01/03/2024Within the past 12 months the food we bought just didn't last and we didn't have money to get more.Never True4Purpose - LifeAnswerDate RecordedPurpose and direction in life Irrnpyt34/10/2021CommentsNoSex and Gender InformationValueDate Recorded Sex Assigned at BirthNot on fileLegal ComHilzvd52/04/2015 3:15 PM EDTGender IdentityNot on fileSexual OrientationNot on file Last Filed Vital Signs Vital SignReadingTime TakenCommentsBlood Qpcnxbpl917/8611 8:13 AM EST Kwsty70718 8:13 AM RKLRzigbjtzevk80.8 ??C (98.3 ??F)08/29/2023 8:13 AM ESTRespiratory Vafu7863 8:13 AM ESTOxygen Naxjlhndao646%08/29/2023 8:13 AM ESTInhaled Oxygen Concentration--Xotube27.5 kg (140 lb)01/03/2024 12:15 PM MAKLcumnv697 cm (5' 3 )01/03/2024 12:15 PM EDTBody Mass Index24.8001/03/2024 12:15 PM EDT Plan of Treatment Health MaintenanceDue DateLast DoneCommentsDepression Klrseasdn81/04/1992 DTaP,Tdap and Td Vaccines (1 - Tdap)1999Pap Smear2001Adult BMI Ydntptkks55Tobacco Bhofwaqoy78Influenza Wzmnpgh4706/18/2025 Medical Devices Not on file Insurance Care Teams Team MemberRelationshipSpecialtyStart DateEnd Date No Pcp, [place] [address] [facility]
--- OUTSIDE RECORDS SUMMARY | 2025-08-28 11:21 | XMS_ITS | CCD ---
Author Organization [facility] Care Team Providers Care Neurocritical Care Physician Name Role Phone KARLA MARSH Admitting Unavailable [facility], [facility] Referring Unavailabl e SELF, REFERRED Primary Care Unavailable [place] Procedure Practitioner Unavailab le UNKNOWN, PROVIDER Surgeon Unavailable UNKNOWN, PROVIDER Attending Unavailable EDSON HENDERSON Admitting Unavailable MARKER, SAMIA J Referring Unavailable STEPHANIE, RUGEN Primary Care Unavailable [...] ONEILL Referring Unavailable Problems Active Problems Problem ClassificationProblemDateDocumented DateEpisodic/ChronicAcute posthemorrhagic anemia (1 source)Acute posthemorrhagic anemia; Translations: [ACUTE POSTHEMORRHAGIC ANEMIA]Onset: 40-48-0886RbcvsobjTtvxtciy injury or internal injury (7 sources)Unspecified laceration of spleen, initial encounter; Translations: [Major laceration of spleen, subsequent encounter]Onset: 35-61-8189Mnhmwcbv Deficiency and other anemia (1 source)Iron deficiency anemia, unspecified; Translations: [IRON DEFICIENCY ANEMIA, UNSPECIFIED]Onset: 65-08-2782NvbkjeyaQvhosxnf cause codes: Fall (1 source)Fall (on) (from) unspecified stairs and steps, initial encounter; Translations: [FALL (ON) (FROM) UNSPECIFIED STAIRS AND STEPS, INIT ENCNTR]Onset: 52-57-5798Blmohveczklby and screening for infectious disease (2 sources)Encounter for immunization; Translations: [Contact with and (suspected) exposure to infections witha predominantly sexual mode of transmission]Onset: 46-89-4514TnnchmrqDvqdg disorders and dislocations; trauma-related (1 source)Other tear of lateral meniscus, current injury, right knee, subsequent encounter; Translations: [Other tear of lateral meniscus, current injury, right knee, subsequent encounter]Onset: 73-19-0682MqwvpsbgOeqgc nervous system disorders (2 sources)Lesion of lateral popliteal nerve, right lower limb; Translations: [Lesion of lateral popliteal nerve, right lower limb]Onset: 82-74-3339Kpkcixs Other non-traumatic joint disorders (1 source)Pain in right knee; Translations: [Pain in right knee]Onset: 49-51-9119ZtksvzblBoruvfgdw-related disorders (1 source)Nicotine dependence, cigarettes, uncomplicated; Translations: [NICOTINE DEPENDENCE, CIGARETTES, UNCOMPLICATED]Onset: 38-53-9514Kklymwz Unclassified (2 sources)SPLENIC LACERATIONOnset: 74-02-7845Cpdqjeuvebta (1 source)Post-opOnset: 01-03-2024 Past or Other Problems Problem ClassificationProblemDateDocumented DateEpisodic/ChronicOther connective tissue disease (2 sources)Iliotibial band syndrome, right leg; Translations: [Iliotibial band syndrome, right leg]Onset: 62-00-8823QbvdowbmGhnicftt codes; unclassified (1 source)PainOnset: 21-38-5466Wfqvlldr Results Test NameValueInterpretationReference RangeFacilityCult,Genitalon 02-20-2024 Cult,GenitalSpecimen Description .VAGINA Culture NORMAL URO-GENITAL TAMI NEGATIVE FOR GROUP B STREPTOCOCCI NEGATIVE FOR NEISSERIA GONORRHOEAE Report Status FINAL 02/20/2024NormalMerNew Milford HospitalComment on above: Performed By: #### [facility] #### [address] [address] Digital Tech: Oz Lipscomb MD [facility] [address] [place] [address] [place] [address] Digital Tech: VIVI Mendozahlamydia/GC DNA, TPon 96-94-3367Bnrxvrxce Probe, TPNegativeNormmoNEGUniversity Hospitals Samaritan Medical CenterCommunising memorial hospital on above:Result Comment: CHLAMYDIA TRACHOMATIS DNA not detected by nucleic acid [...] positive results by an alternative nucleic acid target.Performed By: #### CY[facility] #### [address] [address] Digital Tech: Oz Lipscomb MDGonorrhea Probe, TPNegativeNormalNEGUniversity Hospitals Samaritan Medical CenterComment on above:Result Comment: NEISSERIA GONORRHOEAE DNA not detected by nucleic acid [...] positive results by an alternative nucleic acid target.Performed By: #### CYTCGP #### [address] [address] Digital Tech: VIVI Rankinytology Reporton [id number] report Cyto stain.thin prep Doc (Cvx/Vag)(NOTE) Path Number: [id number] DIAGNOSIS Imaged ThinPrep Pap - Cervical (1 monolayer slide): Specimen Adequacy: Satisfactory for evaluation. - Endocervical/transformation zone component present. Descriptive Diagnosis: Negative for intraepithelial lesion or malignancy. Comments: Specimen was screened at 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 GYNECOLOGIC CYTOLOGY REPORT Patient Name: VIRGIE BISMARK Eldridge [facility] [place] Rec: [id number] [facility] ANATOMIC PATHOLOGY [address] [place] [address]. [place] [id number] [facility] Pathology Reporton [id number] Pathology Report(NOTE) Path Number: [id number] -- Diagnosis -- CERVIX, POLYPECTOMY: - BENIGN ENDOCERVICAL POLYP WITH FOCAL DYSTROPHIC CALCIFICATIONS AND CHRONIC INFLAMMATION. Louie Kang M.D. Electronically Signed Out [facility]/02/21/2024 Clinical Information Pre-Op Diagnosis: CERVICAL POLYP Operation Performed: CA BIOPSY CERVIX SINGLE/MULT/EXCISION OF LESION SPX kb Source of Specimen A: CERVICAL POLYP Gross Description BISMARK FOURNIER CERVICAL POLYP Received in formalin is a 2.7 x 0.5 x 0.2 cm pink-garcia, polypoid fragment. The base is inked. Intact, 1cs. tm Amber Weiner/kb2:02/18/2024 Microscopic Description Microscopic examination performed. Processing Lab: [address] [address] Interpretation Performed at [place] [address] SURGICAL PATHOLOGY CONSULTATION Patient Name: BISMARK FOURNIER [facility] Rec: [id number] [facility] [facility] ANATOMIC PATHOLOGY [facility] [facility]. [place], [place] [address] [facility] HospitalMR KNEE RT WO CONTon [id number] KNEE RT WO CONTMR KNEE RT WO CONT History: Right lateral [...] with osteophytes and grade 2-3 hyaline cartilage losswith a focal grade 3 defect coronal image 16 and a moderate lateral compartment osteophyte along with extensive subchondral cysts within the tibial eminence which are degenerative Patellofemoral and medial compartment of relatively spared Ganglion on at the posterior lateral aspect of the knee immediately posterior to the distal femoralmetadiaphysis sagittal image 20 series 13 and coronal image 15, measuring 21 mm No bone contusion or osteochondral injury IMPRESSION: Complex tear anterior horn lateral meniscus with adjacent meniscal cyst and reactive effusion Osteoarthritis predominating lateral compartment Ganglion posterior lateral aspect of the knee immediately posterior to the distal femoral metadiaphysis. Finalized by Joseph Callahan MD on 12/04/2023 9:11 AMNormalProMedica Hassler Health Farm W/DIFFon [id number] BASOPHILS0.1 10*3/uLNormal0.0-0.2The Cleveland ClinicComment on above:Performed By: #### [id number], #### [facility] [address] [place] [address], [facility] CENTERABS IMM GRANS0.0 10*3/uLNormal0.0-0.2The Cleveland ClinicComment on above:Performed By: #### 98276, 63534 #### [facility] [address] [place] [address], USAABS NEUTROPHILS6.0 10*3/uLNormal1.6-7.6The Cleveland ClinicComment on above:Performed By: #### 14601, #### [facility] [address] [place] [address], USABasophils #/vol (Bld)0.6 %Normal0.0-1.0The Cleveland ClinicComment on above:Performed By: #### 72199, #### [facility] [address] [place] [address], USAEosinophils #/vol (Bld)0.1 10*3/uLNormal0.0-0.5The Cleveland ClinicComment on above:Performed By: #### 22447, #### [facility] [address] [place] [address], USAEosinophils/100 WBC (Bld)1.1 %Normal0.0-6.0The Cleveland ClinicComment on above:Performed By: #### 53051, #### [facility] [address] [place] [address], USAErythrocyte distribution width Ratio (RBC)13.2 %Normal 11.5-15.0The Cleveland ClinicComment on above:Performed By: #### 85765, #### [facility] [address] [facility] [place] [address], USAHematocrit Volume Fraction (Bld)38.6 %Wmdxrj55.0-45.0The Cleveland ClinicComment on above:Performed By: #### 71840, #### [facility] [address] [place] [address], USAHemoglobin mass conc (Bld)13.1 g/mFOxtzyx33.0-15.0The Cleveland ClinicComment on above:Performed By: #### 49345, 85595 #### [facility] [address] [place] [address], [facility] CENTERIMMATURE GRANS0.2 %Normal0.0-1.0The Cleveland ClinicComment on above:Performed By: #### 89621, #### [facility] [address] [place] [address], [facility] CENTERLymphocytes #/vol (Bld)1.6 10*3/uLNormal1.2-4.0The Cleveland ClinicComment on above:Performed By: #### 67023, 27879 #### [facility] [address] [place] [address], [facility] CENTERLymphocytes/100 WBC (Bld)19.4 %Low20.0-45.0The Cleveland ClinicComment on above:Performed By: #### 77277, 82181 #### [facility] [address] [place] [address], [facility] – NORMANH Entitic mass (RBC)32.6 yhRdaxzk00.0-33.0The [facility] ClinicComment on above:Performed By: #### 18290, 36897 #### [facility] [address] [place] [address], [facility] NORMANHC mass conc (RBC)33.9 g/jXAitxbq68.0-35.0The [facility] ClinicComment on above:Performed By: #### 25987, 43321 #### [facility] [address] [facility] [place] [address], [facility] NORMANV Entitic volume (RBC)96.0 zEJppwex18.0-98.0The Cleveland ClinicComment on above:Performed By: #### 03497, 55909 #### [facility] [address] [place] [address], USAMonocytes #/vol (Bld)0.5 10*3/uLNormal0.1-1.0The Cleveland ClinicComment on above:Performed By: #### 44733, #### [facility] [address] [place] [address], USAMONOS5.7 %Normal5.0-12.0The Cleveland ClinicComment on above:Performed By: #### 91425, #### [facility] [address] [place] [address], USANeutrophils/100 WBC (Bld)73.0 %High40.0-72.0The Cleveland ClinicComment on above:Performed By: #### 84017, #### [facility] [address] [place] [address], USANucleated RBC/100 WBC Ratio (Bld)0 %Normal0-0The Cleveland ClinicComment on above:Performed By: #### 37313, #### [facility] [address] [facility] [place] [address], USAPLAT UDF227 10*3/hYNdqsbr389-419Mfs Cleveland ClinicComment on above:Performed By: #### 66062, #### [facility] [address] [place] [address], USARBC #/vol (Bld)4.02 10*6/uLNormal3.80-5.00The [facility] ClinicComment on above:Performed By: #### 21383, #### [facility] [address] [facility] [place] [address], USAWBC #/vol (Bld)8.21 10*3/uLNormal4.00-10.60The [facility] ClinicComment on above:Performed By: #### 02382, #### [facility] [address] [place] [address], [facility] COMPLETE BLOOD COUNTon 28-97-9322Zzwzpwpxyrm distribution width Ratio (RBC)13.1 %Tzsioe79.5-15.0The Cleveland ClinicComment on above:Order Comment: No: Do not add to previous draw Performed By: #### 37937, #### [facility] [address] [place] [address], [facility] CENTERHematocrit Volume Fraction (Bld)28.6 %Low36.0-45.0The [facility] ClinicComment on above:Order Comment: No: Do not add to previous drawPerformed By: #### 74307, #### [facility] [address] [facility] [address], [facility] CENTERHemoglobin mass conc (Bld)9.6 g/dLLow12.0-15.0The [facility] ClinicComment on above:Order Comment: No: Do not add to previous drawPerformed By: #### 60474, #### [facility] [address] [facility] [place] [address], [facility] Entitic mass (RBC)32.0 xmApcwdl27.0-33.0The [facility] ClinicComment on above:Order Comment: No: Do not add to previous drawPerformed By: #### 02634, #### [facility] [address] [address], [facility] CENTERMCHC mass conc (RBC)33.6 g/tESiinfg60.0-35.0The [facility] ClinicComment on above:Order Comment: No: Do not add to previous drawPerformed By: #### 30365, #### [facility] [address] [facility] [place] [address], [facility]MANV Entitic volume (RBC)95.3 xOMbdwyu15.0-98.0The [facility] ClinicComment on above:Order Comment: No: Do not add to previous drawPerformed By: #### 39894, 07004 #### [facility] [address] [place] [address], USANucleated RBC/100 WBC Ratio (Bld)0 %Normal0-0The Cleveland ClinicComment on above:Order Comment: No: Do not add to previous drawPerformed By: #### 42407, #### [facility] [address] [place] [address], USAPLAT WLB203 10*3/qFHwvtzn518-694Ewh Cleveland ClinicComment on above:Order Comment: No: Do not add to previous draw Performed By: #### 89952, #### [facility] [address] [place] [address], USARBC #/vol (Bld)3.00 10*6/uLLow3.80-5.00The [facility] ClinicComment on above:Order Comment: No: Do not add to previous drawPerformed By: #### 23264, #### [facility] [address] [place] [address], USAWBC #/vol (Bld)7.61 10*3/uLNormal4.00-10.60The [facility] ClinicComment on above:Order Comment: No: Do not add to previous drawPerformed By: #### 94245, #### [facility] [address] [place] [address], USABASIC METABOLIC PANELon 28-89-1576Gnkkmts mass conc8.3 mg/dLLow8.6-10.3The [facility] ClinicComment on above:Order Comment: No: Do not add to previous drawPerformed By: #### 85210, #### [facility] [address] [place] [address], USAChloride molar knmd302 mmol/QXbejtg73-961Ogi Cleveland ClinicComment on above:Order Comment: No: Do not add to previous drawPerformed By: #### 34205, #### [facility] [address] [place] [address], USACO2 molar conc29 mmol/OSradzs35-58Ajf Cleveland ClinicComment on above:Order Comment: No: Do not add to previous draw Performed By: #### 08565, #### [facility] [address] [place] [address], USACreatinine mass conc0.62 mg/dLNormal0.60-1.20The [facility] ClinicComment on above:Order Comment: No: Do not add to previous drawPerformed By: #### 62119, #### [facility] [address] [place] [address], USAGFR/1.73 sq M predicted among blacks MDRD vol rate/area (S/P/Bld)mL/min/{1.73_m2}Normal>60The [facility] ClinicComment on above:Order Comment: No: Do not add to previous drawPerformed By: #### 35695, #### [facility] [address] [place] [address], USAGFR/1.73 sq M predicted among non-blacks MDRD vol rate/area (S/P/Bld)mL/min/{1.73_m2}Normal>60The [facility] ClinicComment on above:Order Comment: No: Do not add to previous drawPerformed By: #### 32186, #### [facility] [address] [place] [address], USAGlucose mass gozj381 mg/yAEbwn32-287Jqh Cleveland ClinicComment on above:Order Comment: No: Do not add to previous drawPerformed By: #### 52226, #### [facility] [address] [place] [address], USAPotassium molar conc3.9 mmol/LNormal3.5-5.1The [facility] ClinicComment on above:Order Comment: No: Do not add to previous drawPerformed By: #### 06833, #### [facility] [address] [place] [address], USASodium molar ylzr538 mmol/PMtrptw278-132Vnp Cleveland ClinicComment on above:Order Comment: No: Do not add to previous drawPerformed By: #### 78216, #### [facility] [address] [place] [address], USAUrea nitrogen mass conc7 mg/dLNormal7-25The [facility] ClinicComment on above:Order Comment: No: Do not add to previous drawPerformed By: #### 12704, #### [facility] [address] [place] [address], USACBC COMPLETE BLOOD COUNTon 38-87-8178Ejkzkkfehno distribution width Ratio (RBC)13.2 %Kpdyad34.5-15.0The [facility] ClinicComment on above:Order Comment: No: Do not add to previous draw Performed By: #### 71620, #### [facility] [address] [place] [address], USAHematocrit Volume Fraction (Bld)27.7 %Low36.0-45.0The [facility] ClinicComment on above:Order Comment: No: Do not add to previous drawPerformed By: #### 83911, #### [facility] [address] [place] [address], USAHemoglobin mass conc (Bld)9.3 g/dLLow12.0-15.0The [facility] ClinicComment on above:Order Comment: No: Do not add to previous drawPerformed By: #### 96074, #### [facility] [address] [place] [address], USAMCH Entitic mass (RBC)32.3 rmTerumd60.0-33.0The [facility] ClinicComment on above:Order Comment: No: Do not add to previous drawPerformed By: #### 70780, #### [facility] [address] [place] [address], [facility]HC mass conc (RBC)33.6 g/kVEvneum63.0-35.0The [facility] ClinicComment on above:Order Comment: No: Do not add to previous drawPerformed By: #### 82720, #### [facility] [address] [facility] [place] [address], [facility] Entitic volume (RBC)96.2 iVEsruqe31.0-98.0The [facility] ClinicComment on above:Order Comment: No: Do not add to previous drawPerformed By: #### 88270, #### [facility] [address] [place] [address], [facility]ICAL CENTERNucleated RBC/100 WBC Ratio (Bld)0 %Normal0-0The [facility] ClinicComment on above:Order Comment: No: Do not add to previous drawPerformed By: #### 95670, #### [facility] [address] [place] [address], [facility]ICAL CENTERPLAT BEZ335 10*3/eXYrqrhl611-116Skb [facility] ClinicComment on above:Order Comment: No: Do not add to previous draw Performed By: #### 13866, #### [facility] [address] [facility] [place] [address], [facility] CENTERRBC #/vol (Bld)2.88 10*6/uLLow3.80-5.00The [facility] ClinicComment on above:Order Comment: No: Do not add to previous drawPerformed By: #### 55568, #### [facility] [address] [place] [address], [facility] CENTERWBC #/vol (Bld)7.66 10*3/uLNormal4.00-10.60The [facility] ClinicComment on above:Order Comment: No: Do not add to previous drawPerformed By: #### 40007, #### [facility] [address] [place] [address], USAIRON BLOODon 02-06-0276Gzfo mass conc32 ug/aTMtn81-696Uvr [facility] ClinicComment on above:Order Comment: No: Do not add to previous drawPerformed By: #### 77697, #### [facility] [address] [place] [address], USABASIC METABOLIC PANELon 35-07-5615Eqmzpjx mass conc8.8 mg/dLNormal8.6-10.3The [facility] ClinicComment on above:Order Comment: No: Do not add to previous drawPerformed By: #### 58009, 93347 #### [facility] [address] [place] [address], USAChloride molar yukv002 mmol/DZosgus96-005Yha [facility] ClinicComment on above:Order Comment: No: Do not add to previous drawPerformed By: #### 96870, #### [facility] [address] [place] [address], USACO2 molar conc26 mmol/HYjidla81-93Ope [facility] ClinicComment on above:Order Comment: No: Do not add to previous draw Performed By: #### 50016, 89991 #### [facility] [address] [place] [address], USACreatinine mass conc0.59 mg/dLLow0.60-1.20The [facility] ClinicComment on above:Order Comment: No: Do not add to previous drawPerformed By: #### 12080, #### [facility] [address] [place] [address], USAGFR/1.73 sq M predicted among blacks MDRD vol rate/area (S/P/Bld)mL/min/{1.73_m2}Normal>60The [facility] ClinicComment on above:Order Comment: No: Do not add to previous drawPerformed By: #### 26888, #### [facility] [address] [place] [address], USAGFR/1.73 sq M predicted among non-blacks MDRD vol rate/area (S/P/Bld)mL/min/{1.73_m2}Normal>60The [facility] ClinicComment on above:Order Comment: No: Do not add to previous drawPerformed By: #### 69806, #### [facility] [address] [place] [address], USAGlucose mass qnco697 mg/kNVfmy99-931Tfv [facility] ClinicComment on above:Order Comment: No: Do not add to previous drawPerformed By: #### 29219, #### [facility] [address] [place] [address], USAPotassium molar conc3.6 mmol/LNormal3.5-5.1The [facility] ClinicComment on above:Order Comment: No: Do not add to previous drawPerformed By: #### 95376, #### [facility] [address] [place] [address], USASodium molar psfu692 mmol/SYirlus990-980Byn [facility] ClinicComment on above:Order Comment: No: Do not add to previous drawPerformed By: #### 83916, #### [facility] [address] [place] [address], USAUrea nitrogen mass conc7 mg/dLNormal7-25The [facility] ClinicComment on above:Order Comment: No: Do not add to previous drawPerformed By: #### 06551, #### [facility] [address] [place] [address], [facility] COMPLETE BLOOD COUNTon 96-12-4472Vhvdskbtmjs distribution width Ratio (RBC)13.1 %Jppzsr03.5-15.0The [facility] ClinicComment on above:Order Comment: No: Do not add to previous draw Performed By: #### 28671, #### [facility] [address] [place] [address], USAHematocrit Volume Fraction (Bld)28.4 %Low36.0-45.0The [facility] ClinicComment on above:Order Comment: No: Do not add to previous drawPerformed By: #### 00826, #### [facility] [address] [place] [address], [facility] CENTERHemoglobin mass conc (Bld)9.9 g/dLLow12.0-15.0The [facility] ClinicComment on above:Order Comment: No: Do not add to previous drawPerformed By: #### 18074, #### [facility] [address] [place] [address], [facility] Entitic mass (RBC)33.6 rfQjij54.0-33.0The Cleveland ClinicComment on above:Order Comment: No: Do not add to previous drawPerformed By: #### [id number], #### [facility] [address] [place] [address], [facility] mass conc (RBC)34.9 g/sKCiecip43.0-35.0The [facility] ClinicComment on above:Order Comment: No: Do not add to previous drawPerformed By: #### [id number], #### [facility] [address] [place] [address], [facility] Entitic volume (RBC)96.3 sNZsuaes89.0-98.0The [facility] ClinicComment on above:Order Comment: No: Do not add to previous drawPerformed By: #### [id number], #### [facility] [address] [place] [place] [address], USANucleated RBC/100 WBC Ratio (Bld)0 %Normal0-0The [facility] ClinicComment on above:Order Comment: No: Do not add to previous drawPerformed By: #### [id number], #### [facility] [address] [place] [address], USAPLAT [id number] 10*3/lKVjuvvd428-861Xly Cleveland ClinicComment on above:Order Comment: No: Do not add to previous draw Performed By: #### [id number], #### [facility] [address] [place] [address], [facility]BC #/vol (Bld)2.95 10*6/uLLow3.80-5.00The [facility] ClinicComment on above:Order Comment: No: Do not add to previous drawPerformed By: #### 94584, #### [facility] [address] [place] [address], USAWBC #/vol (Bld)8.21 10*3/uLNormal4.00-10.60The [facility] ClinicComment on above:Order Comment: No: Do not add to previous drawPerformed By: #### 79673, #### [facility] [address] [place] [address], [facility]ENTERCT ABDOMEN AND PELVIS W CONTRASTon [id number] ABDOMEN AND PELVIS W CONTRASTUnSelect [facility] [address] [place] [address] Patient Name: BISMARK FOURNIER : 1980 Sex: F Age: Race: White Pt. Location: [id number] Patient Status: I Ordered Date: 01/24/2019 9:25:00 [...] findings. Electronically signed by:Jennifer Amaro. Transcribed by: [id number], User Resident: NOAM ROBLES Electronically Signed by: JENNIFER AMARO @ 01/24/2019 01:07 PM I personally read this/these film(s) with this residentNoMercy Health Anderson Hospitale Cleveland ClinicComment on above:Order Comment: No: Do not add to previous drawLACTATE BLOODon 20-46-5956Ifwdrej molar conc0.5 mmol/LNormal0.5-2.2The [facility] ClinicComment on above:Order Comment: No: Do not add to previous drawPerformed By: #### 10084, #### [facility] [address] [facility] [place] [address], USAMAGNESIUM BLOODon 34-99-1401Fdwwfzgjm mass conc2.0 mg/dL Normal1.9-2.7The [facility] ClinicComment on above:Order Comment: No: Do not add to previous drawPerformed By: #### 14757, #### [facility] [address] [facility] [place] [address], USAPORTABLE CHEST 1 VIEWon 44-81-3424TIUICIGQ CHEST 1 VIEW [facility] Department of Radiology [address] [place] [id number] Patient Name: BISMARK FOURNIER : 1980 Sex: F Age: Race: White Pt. Location: [address] [address] Patient Status: I Ordered Date: 01/24/2019 9:25:00 [...] effusion. Electronically signed by:Ariela Villegas. Transcribed by: [id number], User Resident: Electronically Signed by: ARIELA VILLEGAS @ 01/24/2019 01:34 PMNormalThe Cleveland ClinicComment on above:Order Comment: No: Do not add to previous drawPROTHROMBIN TIMEon 39-37-3662YUB Coag RelTime (PPP)1.04 {INR}Normal0.91-1.16[facility] HospitalComment on above: Order Comment: No: Do not add to previous drawResult Comment: ACCCP RECOMMENDED INR FOR WARFARIN THERAPY ------- CONDITION INR PROPHYLAXIS OF VENOUS THROMBOSIS 2-3 (HIGH-RISK SURGERY) TREATMENT OF VENOUS THROMBOSIS 2-3 TREATMENT OF PULMONARY EMBOLISM 2-3 PREVENTION OF SYSTEMIC EMBOLISM: 2-3 ACUTE MYOCARDIAL INFARCTION TISSUE HEART VALVES VALVULAR HEART DISEASE ATRIAL FIBRILLATION RECURRENT SYSTEMIC EMBOLISM MECHANICAL HEART VALVE 2.5-3.5 FROM: ORAL ANTICOAGULANTS. MECHANISM OF ACTION, CLINICAL EFFECTIVENESS, AND OPTIMAL THERAPEUTIC RANGE. CHEST 1995;108:231S-246S.Performed By: #### [id number], #### [facility] [address] [facility] [place] [address], [facility] CENTERProthrombin time (PT) Coag time (PPP)13.6 sAziqyf60.3-14.8 The [facility] ClinicComment on above:Order Comment: No: Do not add to previous drawResult Comment: ALL RESULTS MUST BE INTERPRETED WITH RESPECT TO BLOOD DRAWING ARTIFACT OR DILUTION ERROR OF ANTICOAGULANT AT THE TIME OF SAMPLING.Performed By: #### [id number], #### [facility] [address] [facility] [place] [address], [facility] CENTERHEMATOCRITon 08-58-0000Vttrgydxzn Volume Fraction (Bld)29.7 %Low36.0-45.0The [facility] ClinicComment on above:Order Comment: No: Do not add to previous drawPerformed By: #### [id number], #### [facility] [address] [place] [id number], USAHEMOGLOBINon 31-55-0709Anaxmfoafe mass conc (Bld)10.7 g/dL Low12.0-15.0The [facility] ClinicComment on above:Order Comment: No: Do not add to previous drawPerformed By: #### 87814, #### [facility] [address] [place] [address], USABASIC METABOLIC PANELon 12-77-5859Tqahfxx mass conc7.6 mg/dLLow8.6-10.3The [facility] ClinicComment on above:Order Comment: No: Do not add to previous drawPerformed By: #### 39800, #### [facility] [address] [place] [address], USAChloride molar hgfc565 mmol/QFtom58-252Uvo [facility] ClinicComment on above:Order Comment: No: Do not add to previous drawPerformed By: #### 53183, #### [facility] [address] [place] [address], USACO2 molar conc20 mmol/FYep02-74Qtg [facility] ClinicComment on above:Order Comment: No: Do not add to previous draw Performed By: #### 21432, #### [facility] [address] [place] [address], USACreatinine mass conc0.59 mg/dLLow0.60-1.20The [facility] ClinicComment on above:Order Comment: No: Do not add to previous drawPerformed By: #### 06262, #### [facility] [address] [place] [address], USAGFR/1.73 sq M predicted among blacks MDRD vol rate/area (S/P/Bld)mL/min/{1.73_m2}Normal>60The [facility] ClinicComment on above:Order Comment: No: Do not add to previous drawPerformed By: #### 76257, #### [facility] [address] [place] [address], USAGFR/1.73 sq M predicted among non-blacks MDRD vol rate/area (S/P/Bld)mL/min/{1.73_m2}Normal>60The [facility] ClinicComment on above:Order Comment: No: Do not add to previous drawPerformed By: #### 68528, #### [facility] [address] [place] [address], USAGlucose mass conc68 mg/dHMqd10-188Nfx [facility] ClinicComment on above:Order Comment: No: Do not add to previous draw Performed By: #### 03571, #### [facility] [address] [place] [address], USAPotassium molar conc3.7 mmol/LNormal3.5-5.1The [facility] ClinicComment on above:Order Comment: No: Do not add to previous drawPerformed By: #### 38350, #### [facility] [address] [place] [address], USASodium molar tpbt498 mmol/SYuuynu190-131Mky [facility] ClinicComment on above:Order Comment: No: Do not add to previous drawPerformed By: #### 79083, #### [facility] [address] [place] [address], USAUrea nitrogen mass conc8 mg/dLNormal7-25The [facility] ClinicComment on above:Order Comment: No: Do not add to previous drawPerformed By: #### 38870, #### [facility] [address] [place] [address], USACBC COMPLETE BLOOD COUNTon 66-66-0941Wauwxpajiob distribution width Ratio (RBC)13.3 %Fohkxg30.5-15.0The [facility] ClinicComment on above:Order Comment: No: Do not add to previous draw Performed By: #### 43579, #### [facility] [address] [place] [address], USAHematocrit Volume Fraction (Bld)28.7 %Low36.0-45.0The [facility] ClinicComment on above:Order Comment: No: Do not add to previous drawPerformed By: #### 36963, #### [facility] [address] [place] [id number], [facility] CENTERHemoglobin mass conc (Bld)9.9 g/dLLow12.0-15.0The [facility] ClinicComment on above:Order Comment: No: Do not add to previous drawPerformed By: #### 50399, #### [facility] [address] [place] [address], [facility] Entitic mass (RBC)32.6 uwCdtzbt21.0-33.0The [facility] ClinicComment on above:Order Comment: No: Do not add to previous drawPerformed By: #### 89833, #### [facility] [address] [place] [address], [facility] CENTERMCHC mass conc (RBC)34.5 g/nBWsfccc62.0-35.0The [facility] ClinicComment on above:Order Comment: No: Do not add to previous drawPerformed By: #### 10272, #### [facility] [address] [place] [address], [facility] Entitic volume (RBC)94.4 yNMdykgi78.0-98.0The [facility] ClinicComment on above:Order Comment: No: Do not add to previous drawPerformed By: #### 04039, #### [facility] [address] [place] [address], [facility] CENTERNucleated RBC/100 WBC Ratio (Bld)0 %Normal0-0The [facility] ClinicComment on above:Order Comment: No: Do not add to previous drawPerformed By: #### 17150, #### [facility] [address] [place] [address], USAPLAT JWE705 10*3/xNUdnmis711-077Vvf [facility] ClinicComment on above:Order Comment: No: Do not add to previous draw Performed By: #### 33171, #### [facility] [address] [place] [address], [facility] CENTERRBC #/vol (Bld)3.04 10*6/uLLow3.80-5.00The [facility] ClinicComment on above:Order Comment: No: Do not add to previous drawPerformed By: #### 01467, #### [facility] [address] [place] [address], [facility] CENTERWBC #/vol (Bld)8.22 10*3/uLNormal4.00-10.60The [facility] ClinicComment on above:Order Comment: No: Do not add to previous drawPerformed By: #### 77541, #### [facility] [address] [place] [address], USAALCOHOLon 86-06-8752Xadyxvb mass concBANNER BAYWOOD MEDICAL CENTERE [facility] Mercy HospitalComment on above:Order Comment: No: Do not add to previous drawResult Comment: Divide by 1000 to convert mg/dL to percent. Example: 100mg/dL = 0.1%.Performed By: #### 71779, #### [facility] [address] [place] [address], [facility] CENTERCBC COMPLETE BLOOD COUNTon 09-44-6166Rjxzcoetosf distribution width Ratio (RBC)14.1 %Ouxjtq20.5-15.0The [facility] ClinicComment on above:Order Comment: No: Do not add to previous draw Performed By: #### 45948 #### [facility] [address] [place] [address], [facility] CENTERHematocrit Volume Fraction (Bld)30.2 %Low36.0-45.0The [facility] ClinicComment on above:Order Comment: No: Do not add to previous drawPerformed By: #### [id number] #### [facility] [address] [place] [id number], [facility] CENTERHemoglobin mass conc (Bld)10.5 g/dLLow12.0-15.0The [facility] ClinicComment on above:Order Comment: No: Do not add to previous drawPerformed By: #### 77808 #### [facility] [address] [place] [address], [facility] Entitic mass (RBC)32.9 ecIkxdjx89.0-33.0The [facility] ClinicComment on above:Order Comment: No: Do not add to previous drawPerformed By: #### 92518 #### [facility] [address] [place] [address], [facility] mass conc (RBC)34.8 g/rWBmsvgp85.0-35.0The [facility] ClinicComment on above:Order Comment: No: Do not add to previous drawPerformed By: #### 28304 #### [facility] [address] [place] [id number], [facility] Entitic volume (RBC)94.7 tMKtdlmr06.0-98.0The [facility] ClinicComment on above:Order Comment: No: Do not add to previous drawPerformed By: #### 02903 #### [facility] [address] [place] [address], USANucleated RBC/100 WBC Ratio (Bld)0 %Normal0-0The [facility] ClinicComment on above:Order Comment: No: Do not add to previous drawPerformed By: #### 81203 #### [facility] [address] [facility] [place] [address], USAPLAT IIM960 10*3/xIZuqwyz244-836Whw [facility] ClinicComment on above:Order Comment: No: Do not add to previous draw Performed By: #### 48204 #### [facility] [address] [place] [address], USARBC #/vol (Bld)3.19 10*6/uLLow3.80-5.00The [facility] ClinicComment on above:Order Comment: No: Do not add to previous drawPerformed By: #### 09856 #### [facility] [address] [place] [address], USAWBC #/vol (Bld)8.12 10*3/uLNormal4.00-10.60The [facility] ClinicComment on above:Order Comment: No: Do not add to previous drawPerformed By: #### 41511 #### [facility] [address] [place] [address], USAErythrocyte distribution width Ratio (RBC)13.3 %Normal 11.5-15.0The [facility] ClinicComment on above:Order Comment: if not done in ED No: Do not add to previous drawPerformed By: #### 21684 #### [facility] [address] [place] [address], USAHematocrit Volume Fraction (Bld)32.4 %Low36.0-45.0The [facility] ClinicComment on above:Order Comment: if not done in ED No: Do not add to previous drawPerformed By: #### 51696 #### [facility] [address] [place] [address], USAHemoglobin mass conc (Bld)11.4 g/dLLow12.0-15.0The [facility] ClinicComment on above:Order Comment: if not done in ED No: Do not add to previous drawPerformed By: #### 01580 #### [facility] [address] [place] [address], USAMCH Entitic mass (RBC)32.9 umNybalz13.0-33.0The [facility] ClinicComment on above:Order Comment: if not done in ED No: Do not add to previous drawPerformed By: #### [id number] #### [facility] [address] [place] [address], [facility] mass conc (RBC)35.2 g/uEChbk46.0-35.0The [facility] ClinicComment on above:Order Comment: if not done in ED No: Do not add to previous drawPerformed By: #### 42276 #### [facility] [address] [address], [facility] Entitic volume (RBC)93.4 iUVyuehr86.0-98.0The [facility] ClinicComment on above:Order Comment: if not done in ED No: Do not add to previous drawPerformed By: #### 91159 #### [facility] [address] [facility] [address], [facility] CENTERNucleated RBC/100 WBC Ratio (Bld)0 %Normal0-0The [facility] ClinicComment on above:Order Comment: if not done in ED No: Do not add to previous drawPerformed By: #### 30323 #### [facility] [address] [facility] [address], [facility] CENTERPLAT RPN932 10*3/tQNlmvtx650-353Udr [facility] ClinicComment on above:Order Comment: if not done in ED No: Do not add to previous drawPerformed By: #### 96470 #### [facility] [address] [facility] [place] [address], [facility] CENTERRBC #/vol (Bld)3.47 10*6/uLLow3.80-5.00The [facility] ClinicComment on above:Order Comment: if not done in ED No: Do not add to previous drawPerformed By: #### 57094 #### [facility] [address] [place] [id number], [facility] CENTERWBC #/vol (Bld)10.45 10*3/uLNormal4.00-10.60The [facility] ClinicComment on above:Order Comment: if not done in ED No: Do not add to previous drawPerformed By: #### 87227 #### [facility] [address] [place] [address], USACOMP METABOLIC PANELon 95-76-3300Lfsxxts mass conc3.6 g/dL Normal3.5-5.7The [facility] ClinicComment on above:Order Comment: No: Do not add to previous drawPerformed By: #### 00951, 78002, 69944 #### [facility] [address] [place] [address], USAALKALINE ALHVDE71 IU/IOic96-164Kgp [facility] ClinicComment on above:Order Comment: No: Do not add to previous draw Performed By: #### 95442, 74906, 53254 #### [facility] [address] [place] [address], USAALT enzyme act/vol10 U/LNormal7-52The [facility] ClinicComment on above:Order Comment: No: Do not add to previous draw Performed By: #### 06920, 69866, 81031 #### [facility] [address] [place] [address], USAAST enzyme act/vol18 U/WYrbnir79-24Tfo [facility] ClinicComment on above:Order Comment: No: Do not add to previous draw Performed By: #### 90088, 15615, 46263 #### [facility] [address] [place] [address], USABilirubin mass conc1.0 mg/dLNormal0.3-1.0The [facility] ClinicComment on above:Order Comment: No: Do not add to previous drawPerformed By: #### 15358, 99258, 36449 #### [facility] [address] [place] [address], USACalcium mass conc7.8 mg/dLLow8.6-10.3The [facility] ClinicComment on above:Order Comment: No: Do not add to previous drawPerformed By: #### 95945, 76804, 45085 #### [facility] [address] [place] [address], USAChloride molar dikt180 mmol/SEkff09-928Esn [facility] ClinicComment on above:Order Comment: No: Do not add to previous drawPerformed By: #### 28894, 42813, 94324 #### [facility] [address] [place] [address], USACO2 molar conc24 mmol/IBcxrad24-51Kiw [facility] ClinicComment on above:Order Comment: No: Do not add to previous draw Performed By: #### 99102, 10304, 88080 #### [facility] [address] [place] [address], USACreatinine mass conc0.69 mg/dLNormal0.60-1.20The [facility] ClinicComment on above:Order Comment: No: Do not add to previous drawPerformed By: #### 46204, 00895, 19848 #### [facility] [address] [place] [address], USAGFR/1.73 sq M predicted among blacks MDRD vol rate/area (S/P/Bld)mL/min/{1.73_m2}Normal>60The [facility] ClinicComment on above:Order Comment: No: Do not add to previous drawPerformed By: #### 53578, 35944, 52529 #### [facility] [address] [place] [address], USAGFR/1.73 sq M predicted among non-blacks MDRD vol rate/area (S/P/Bld)mL/min/{1.73_m2}Normal>60The [facility] ClinicComment on above:Order Comment: No: Do not add to previous drawPerformed By: #### 70888, 40579, 82398 #### [facility] [address] [place] [address], USAGlucose mass conc95 mg/qOYljkjx88-060Mdo [facility] ClinicComment on above:Order Comment: No: Do not add to previous drawPerformed By: #### 54858, 55081, 22416 #### [facility] [address] [place] [address], USAPotassium molar conc3.7 mmol/LNormal3.5-5.1The [facility] ClinicComment on above:Order Comment: No: Do not add to previous drawPerformed By: #### 85661, 32475, 66337 #### [facility] [address] [place] [address], USAProtein mass conc5.0 g/dLLow6.0-8.3The [facility] ClinicComment on above:Order Comment: No: Do not add to previous draw Performed By: #### 44975, 66311, 99967 #### [facility] [address] [place] [address], USASodium molar piht776 mmol/VNouvdz606-955Msr [facility] ClinicComment on above:Order Comment: No: Do not add to previous drawPerformed By: #### 83354, 98893, 45046 #### [facility] [address] [place] [address], USAUrea nitrogen mass conc6 mg/dLLow7-25The [facility] ClinicComment on above:Order Comment: No: Do not add to previous drawPerformed By: #### 58209, 15471, 24711 #### [facility] [address] [place] [address], USACT 3D CERVICAL SPINE WO CONTRASTon 56-95-2051PT 3D CERVICAL SPINE WO CONTRASTUnSelect Medical [facility] [address] [place] [id number] Patient Name: BISMARK FOURNIER : 1980 Sex: F Age: Race: White Pt. Location: [id number] Patient Status: I Ordered Date: 01/16/2019 9:55:00 [...] head were obtained without IV contrast. (accession [id number]), Axial CT images of the spine were obtained without IV contrast. (accession [id number]) TECHNIQUE: Multi detector CT axial slices of [...] collar Electronically signed by:Sole Hayes. Transcribed by: [email or web address], User Resident: Electronically Signed by: SOLE HYAES @ 01/17/2019 11:20 AMNormalThe [facility] ClinicComment on above:Order Comment: No: Do not add to previous drawCT ABDOMEN AND PELVIS W CONTRASTon [id number] ABDOMEN AND PELVIS W CONTRASTUnSelect Medical Special[facility] Department of Radiology [address] [place] [id number] Patient Name: BISMARK FOURNIER : 1980 Sex: F Age: Race: White Pt. Location: [id number] Patient Status: I Ordered Date: 01/16/2019 9:55:00 [...] study. Electronically signed by:Jennifer Amaro. Transcribed by: [email or web address], User Resident: Electronically Signed by: JENNIFER AMARO @ 01/17/2019 08:15 AMNormalThe [facility] ClinicComment on above:Order Comment: No: Do not add to previous drawCT BRAIN WO CONTRASTon [id number] BRAIN WO CONTRAST [facility] Department of Radiology [address] [place] [phone] Patient Name: BISMARK FOURNIER : 1980 Sex: F Age: Race: White Pt. Location: [id number] Patient Status: I Ordered Date: 01/16/2019 9:55:00 [...] head were obtained without IV contrast. (accession [id number]), Axial CT images of the spine were obtained without IV contrast. (accession [id number]) TECHNIQUE: Multi detector CT axial slices of [...] collar Electronically signed by:Sole Hayes. Transcribed by: [email or web address], User Resident: Electronically Signed by: SOLE HAYES @ 01/17/2019 11:20 AMNMercy Health Springfield Regional Medical CenterComment on above:Order Comment: No: Do not add to previous drawCT CHEST W CONTRASTon [id number] CHEST W CONTRAST [facility] Department of Radiology [address] [place] [address] Patient Name: BISMARK FOURNIER : 1980 Sex: F Age: Race: White Pt. Location: [id number] Patient Status: I Ordered Date: 01/16/2019 9:55:00 [...] findings. Electronically signed by:Claudia Alegria. Transcribed by: [email or web address], User Resident: JEFFERY SRIVASTAVA Electronically Signed by: CLAUDIA ALEGRIA @ 01/17/2019 06:30 PM I personally read this/these film(s) with this [facility] HospitalComment on above:Order Comment: No: Do not add to previous drawHEMATOCRITon 10-17-5265Cqmyfvicui Volume Fraction (Bld)29.2 %Low36.0-45.0The [facility] ClinicComment on above:Order Comment: No: Do not add to previous drawPerformed By: #### [id number] #### [facility] [address] [place] [address], [facility] CENTERHematocrit Volume Fraction (Bld)28.9 %Low36.0-45.0The [facility] ClinicComment on above:Order Comment: No: Do not add to previous drawPerformed By: #### [id number] #### [facility] [address] [place] [address], USAHEMOGLOBINon 31-60-9156Idguuhlsql mass conc (Bld)9.9 g/dL Low12.0-15.0The [facility] ClinicComment on above:Order Comment: No: Do not add to previous drawPerformed By: #### [id number] #### [facility] [address] [place] [address], [facility] CENTERHemoglobin mass conc (Bld)10.1 g/dLLow12.0-15.0The [facility] ClinicComment on above:Order Comment: No: Do not add to previous drawPerformed By: #### [id number] #### [facility] [address] [place] [address], USAHistory and Physicalon 47-39-9727Kdqcgav and PhysicalMR#: [id number] [facility] Pt. Name: Bismark Fournier Admitted: 01/16/2019 Date of : 1980 Attending Physician: Karla Marsh MD Room #: [id number] Discharge Date: HISTORY AND PHYSICAL SERVICE: Trauma [...] p.r.n. and Percocet p.r.n. 2. Cardio: Continue monitor car operator for hemodynamic instability. 3. Pulmonary: Continue room [...] personal documentation from me. Date Dict: 01/17/2019/02:46 A/Melissa Reid MD Date Trans: 01/17/2019 04:34 A/mmo DN_JN:[id number]TE BLOODon 58-78-2838Dagjedp molar conc0.4 mmol/LLow0.5-2.2The [facility] ClinicComment on above:Order Comment: No: Do not add to previous drawPerformed By: #### [id number] #### [facility] [address] [place] [address], USALactate molar conc0.6 mmol/LNormal0.5-2.2The [facility] ClinicComment on above:Order Comment: No: Do not add to previous drawPerformed By: #### [id number] #### [facility] [address] [place] [address], USALactate molar conc0.5 mmol/LNormal0.5-2.2The [facility] ClinicComment on above:Order Comment: No: Do not add to previous drawPerformed By: #### [id number], [id number] #### [facility] [address] [place] [address], USAMAGNESIUM BLOODon 03-93-1745Emryontiv mass conc1.9 mg/dL Normal1.9-2.7The [facility] ClinicComment on above:Order Comment: No: Do not add to previous drawPerformed By: #### [id number], [id number], [id number] #### [facility] [address] [place] [address], USAPHOSPHORUS BLOODon 77-69-1095Ppbnsawnw mass conc3.5 mg/dL Normal2.5-5.0The [facility] ClinicComment on above:Order Comment: No: Do not add to previous drawPerformed By: #### [id number], [id number], [id number] #### [facility] [address] [place] [address], USATYPE AND SCREENon 07-93-7375GFT [facility] Health SystemComment on above:Performed By: #### [id number] #### [facility] [address] [place] [address], USARH INTERPRETATIONPositiveOhioHealthComment on above:Performed By: #### [id number] #### [facility] [address] [place] [address], USARBC'S 4 UNITSon 25-60-5186PKECTXPZEU INTERP 1CAvita Health SystemComment on above:Performed By: #### [id number] #### [facility] [address] [place] [address], [facility] CENTERCROSSMATCH INTERP 2CAvita Health SystemComment on above:Performed By: #### [id number] #### [facility] [address] [place] [address], USACROSSMATCH INTERP 3CAvita Health SystemComment on above:Performed By: #### [id number] #### [facility] [address] [place] [address], USACROSSMATCH INTERP 4CAvita Health SystemComment on above:Performed By: #### [id number] #### [facility] [address] [place] [address], USAProtein mass abyk492 g/dLNoRegency Hospital CompanyComment on above:Performed By: #### [id number] #### [facility] [address] [place] [address], USAProtein mass concREOhioHealthComment on above:Result Comment: Result changed by IF on 01/19/2019 12:18. The previous value was XM. Result changed by IF on 01/19/2019 14:48. The previous value was XX.Performed By: #### [id number] #### [facility] [address] [place] [address], USAResult Comment: Result changed by IF on 01/20/2019 07:18. The previous value was XM.UNIT ABO 1AOhioHealthComment on above:Performed By: #### [id number] #### [facility] [address] [place] [address], USAUNIT ABO 2AOhioHealth Comment on above:Performed By: #### [id number] #### [facility] [address] [place] [address], USAUNIT ABO 3AOhioHealth Comment on above:Performed By: #### [id number] #### [facility] [address] [place] [address], USAUNIT ABO 4AOhioHealth Comment on above:Performed By: #### [id number] #### [facility] [address] [place] [address], USAUNIT ID [id number] Clinic Union HospitalComment on above:Performed By: #### [id number] #### [facility] [address] [place] [address], USAUNIT ID [id number]-ISnphccQkbCleveland Clinic Union HospitalComment on above:Performed By: #### [id number] #### [facility] [address] [place] [address], USAUNIT ID [id number]-FBecinbVgdCleveland Clinic Union HospitalComment on above:Performed By: #### [id number] #### [facility] [address] [place] [address], USAUNIT ID [id number]-SCeqixsRggCleveland Clinic Union HospitalComment on above:Performed By: #### [id number] #### [facility] [address] [place] [address], USAUNIT RH 1PositiveNormHolzer Medical Center – JacksonComment on above:Performed By: #### [id number] #### [facility] [address] [place] [address], USAUNIT RH 2PositiveNormHolzer Medical Center – JacksonComment on above:Performed By: #### [id number] #### [facility] [address] [place] [address], USAUNIT RH 3PositiveNoRegency Hospital CompanyComment on above:Performed By: #### [id number] #### [facility] [address] [place] [address], USAUNIT RH 4PositiveNoRegency Hospital CompanyComment on above:Performed By: #### [id number] #### [facility] [address] [place] [address], USATOX PANEL URINEon THCPositiveAbnormalNEGATIVE The [facility] ClinicComment on above:Order Comment: No: Do not add to previous drawPerformed By: #### [id number] #### [facility] [address] [place] [address], USABARBITURATESNegativeNormalNEGATIVEThe [facility] ClinicComment on above:Order Comment: No: Do not add to previous draw Performed By: #### [id number] #### [facility] [address] [place] [address], USABenzodiazepines Ql (U)NegativeNormalNEGATIVEThe [facility] ClinicComment on above:Order Comment: No: Do not add to previous drawPerformed By: #### [id number] #### [facility] [address] [place] [address], USACocaine Ql (U)NegativeNormalNEGATIVEThe Cleveland ClinicComment on above:Order Comment: No: Do not add to previous drawPerformed By: #### [id number] #### [facility] [address] [place] [address], USAMethadone Ql (U)NegativeNormalNEGATIVEThe [facility] ClinicComment on above:Order Comment: No: Do not add to previous drawPerformed By: #### [id number] #### [facility] [address] [place] [address], USAMONO AMPHETNegativeNormalNEGATIVEThe [facility] ClinicComment on above:Order Comment: No: Do not add to previous draw Performed By: #### [id number] #### [facility] [address] [place] [address], USAOpiates Ql (U)PositiveAbnormalNEGATIVEThe [facility] ClinicComment on above:Order Comment: No: Do not add to previous drawPerformed By: #### [id number] #### [facility] [address] [place] [address], USAPhencyclidine Ql (U)NegativeNormalNEGATIVEThe [facility] ClinicComment on above:Order Comment: No: Do not add to previous drawPerformed By: #### [id number] #### [facility] [address] [place] [address], USAProtein mass conc (U)NegativeNormalNEGATIVEThe [facility] ClinicComment on above:Order Comment: No: Do not add to previous drawPerformed By: #### [id number] #### [facility] [address] [place] [address], USATRICYCLICSNegativeNormalNEGATIVEThe [facility] ClinicComment on above:Order Comment: No: Do not add to previous draw Performed By: #### [id number] #### [facility] [address] [place] [address], [place] Encounters Encounter DateEncounter TypeCare ProviderFacilityStart: 02-17-2024 End: 42-47-1054ydbhjpyymgEYGCNT W HEDGESMercy Mackville HospitalStart: 02-17-2024 Encounter for gynecological examination (general) (routine) without abnormal findingsTRACE Wade [facility]ville HospitalStart: 02-10-2024 End: 13-04-1933pilzktfsgzMHYSAPRAdair County Health System Ambulatory PPGStart: 01-26-2024 End: 77-86-7755szminmecxiRVVZIEBNN SCHNEIDERNot AvailableStart: 01-03-2024 End: 92-04-8515gwbtacrmrxLYUXNOCAdair County Health System Ambulatory PPGStart: 12-01-2023 End: 60-69-1938tlkhftrepnUVLUO J [facility] HospitalStart: 11-18-2023 End: 38-66-6621hsuxlqhszpCJPJG [facility] Ambulatory PPGStart: 11-01-2023 End: 05-13-7088pygorosldaZDDYMSt. Elizabeth's Hospital Ambulatory PPGStart: 28-30-2647giutqblbnsLQMNSA CRAMERFacility:Y6Vedti: 02-06-2019 End: 87-01-7919Wgsynfc encounter procedureHEATHER R KLEPACZFacility:[facility] SERVICEStart: 01-24-2019 End: 93-74-8911Grtywhzdpv and management of inpatientSTEPMARILUDEREK HENDERSON Facility:[facility] SERVICEStart: 01-16-2019 End: 52-51-0700Qsebswnzwo and management of inpatientHEATHER R VICKI Facility:[facility] Procedures DateProcedureProcedure DetailPerforming ClinicianStart: 75-97-5233Tfuzkc-up visitFollow-upTYROSI Winkler ESTELLE DO[facility]YE HOSPITALSStart: 76-19-1100KUUHFFUVBRZS OF SERUM/TOX/VACCINE INTO MUSCLE, PERC APPROACHJORGE A ORTIZStart: 62-28-9721Ocsdddlm screenHEATHER KLEPACZComment on above:Performed By: #### [id number] #### [address] Payers DatePayer CategoryPayerPolicy [id number] 2.16.840.1.098635.3.57[id number] 2.16.840.1.801457.3.57[id number] 2.16.840.1.149872.3.57[id number] 2.16.840.1.204243.3.57[id number] 2.16.840.1.718118.3.57[id number] 2..840.1.990002.3.57[id number] 2.16.840.1.174242.3.57[id number] 2.16.840.1.409569.3.57[id number] 2.16.840.1.174009.3.57[id number] 2.840.1.469874.3.57[id number] 2.16840.1.742449.3.579.2.32623-95-7747Vihb-[id number] Summary Purpose Family History No Family History Records FoundNo Family History Records FoundNo Family History Records FoundNo Family History Records FoundNo Family History Records FoundNo Family History Records Found Advance Directives No Advanced Directives Records FoundNo Advanced Directives Records FoundNo Advanced Directives Records FoundNo Advanced Directives Records FoundNo Advanced Directives Records FoundNo Advanced Directives Records Found Hospital Course Note MR#: [id number] [facility] Pt. Name: Bismark Fournier Admitted: 01/16/2019 Discharged: 01/19/2019 Date of : 1980 Physician: Eduardo Estrada MD DISCHARGE SUMMARY PRIMARY DIAGNOSIS: Fall down [...] of her home medications. Electronically Signed by: Eduardo Estrada MD 01/23/2019 07:05 A Eduardo Estrada MD I (more content not included)... Note MR#: [id number] I [facility] Pt. Name: Bismark Fournier Admitted: 01/24/2019 [...] decided to go to the ER in [place] instead. She was re-ev (more content not included)... Additional Source Comments INFORMATION SOURCE (unrecogn ized section and content) DATE CREATED AUTHOR 02/10/2019 [facility] DATE CREATED AUTHOR AUTHOR'S ORGANIZ ATION 11/03/2022 [facility] DATE CREATED AUTHOR AUTHOR'S ORGANIZ ATION 12/05/2023 [facility] DATE CREATED AUTHOR AUTHOR'S ORGANIZ ATION 01/27/2024 [facility] EPIC DATE CREATED AUTHOR AUTHOR'S ORGANIZ ATION 02/12/2024 [facility] DATE CREATED AUTHOR AUTHOR'S ORGANIZ ATION 02/28/2024 [facility] FOR RECORDS PERTAINING TO PATIENTS [...] ON THE PRIMARY CLINICAL RECORDS. [facility] [employer] provides no warranty or guarantee of the accuracy or completeness of information in this document.
== END 2025-08-28 11:12 | disposition home or self-care (01) ==
LOC: MAMMO 11:11
PROVIDERS: PCP Nurse Practitioner Family; Visit Provider Nurse Practitioner Family
DX: Z12.31 Encounter for screening mammogram for malignant neoplasm of breast (principal); R92.8 Other abnormal and inconclusive findings on diagnostic imaging of breast
CPT/HCPCS: 77063; 77067

== ENCOUNTER 2025-09-11 13:34 | Outpatient (OUT) | payer BC, SELFPAY ==
--- OUTSIDE RECORDS SUMMARY | 2009-07-11 10:53 | XMS_ITS | Continuity of Care Document ---
Author Organization [facility], [facility] Address [address] [place] [address] Phone Care Team Providers Care Keyboarding Clerk Name Role Phone Chilango Chua MD Unavailable Unavailable Results Test Name Date and Time Measure Units Reference Range Abnormal Flag Status Comments Panel Description: CBC WITH DIFFERENTIAL/PLATELE T Final WBC 6.5 x10E3/uL 4.0 - 10.5 Final RBC 4.42 x10E6/uL 3.80 - 5.10 Final HEMOGLOBIN 13.5 g/dL 11.5 - 15.0 Final HEMATOCRIT 40.3 % 34.0 - 44.0 Final MCV 91 fL 80.0 - 98.0 Final MCH 30.5 pg 27.0 - 34.0 Final MCHC 33.4 g/dL 32.0 - 36.0 Final RDW 11.4 % 11.7 - 15.0 L Final PLATELET COUNT 326 x10E3/uL 140 - 415 Final NEUT% 46 % 40 - 74 Final LYMPH% 44 % 14 - 46 Final MONO% 7 % 4 - 13 Final EOS% 2 % 0 - 7 Final BASO% 1 % 0 - 3 Final NEUT ABS 3.0 x10E3/uL 1.8 - 7.8 Final LYMPH ABS 2.9 x10E3/uL 0.7 - 4.5 Final MONO ABS 0.5 x10E3/uL 0.1 - 1.0 Final EOS ABS 0.1 x10E3/uL 0.0 - 0.4 Final BASO ABS 0.1 x10E3/uL 0.0 - 0.2 Final Perf ormed at: [facility] [address] [place] [address] Advance Directives Directive Yes / No Effective Date File Name No Information Encounters Encounter Description Practice Location Reason(s) For Visit Diagnoses Date Provider Encounter Disposition [facility], [facility], [address], [place], [address], [place] tel:[phone] [facility] Main No Information [address] Harshil Kee. [address], [address], [place], [address], [place]. [phone] Family History Family Member Type Diagnosis Age At Onset No Information Payers Payer name Insurance type Identifiers Authorization(s) Com ments No Information Social History Type Description Quantity Date Captured Comments Sex Female Smoking Status No Information Current Gender Female (finding) Chief Complaint And Reason For Visit No Information History Of Present Illness Encounter Date Complaint History Of Prese nt Illness No Information Functional Status Date Description Comments No Information Instructions Date Instruction Additional Infor mation No Information Assessments Type Assessment Date No Information
--- OUTSIDE RECORDS SUMMARY | 2025-09-11 13:38 | XMS_ITS | Clinical Summary ---
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
--- OUTSIDE RECORDS SUMMARY | 2025-09-11 13:38 | XMS_ITS | CCD ---
Author Organization [facility] Care Team Providers Care Smelter Charger Name Role Phone KARLA MARSH Admitting Unavailable [facility], [facility] Referring Unavailabl e SELF, REFERRED Primary Care Unavailable [place] Procedure Practitioner Unavailab le UNKNOWN, PROVIDER Surgeon [...] source)Acute posthemorrhagic anemia; Translations: [ACUTE POSTHEMORRHAGIC ANEMIA]Onset: 16-83-7814BwdkrqjiXmjipdmc injury or internal injury (7 sources)Unspecified laceration of spleen, initial encounter; Translations: [Major laceration of spleen, subsequent encounter]Onset: 66-30-0133Vldxrehl Deficiency and other anemia (1 source)Iron deficiency anemia, unspecified; Translations: [IRON DEFICIENCY ANEMIA, UNSPECIFIED]Onset: 17-38-4441SszslumiRsmmeoyz cause codes: Fall (1 source)Fall (on) (from) unspecified stairs and steps, initial encounter; Translations: [FALL (ON) (FROM) UNSPECIFIED STAIRS AND STEPS, INIT ENCNTR]Onset: 28-97-1180Hmtwjalhbdlzl and screening for infectious disease (2 sources)Encounter for immunization; Translations: [Contact with and (suspected) exposure to infections witha predominantly sexual mode of transmission]Onset: 05-00-3617FrueyrgqBjyeu disorders and dislocations; trauma-related (1 source)Other tear of lateral meniscus, current injury, right knee, subsequent encounter; Translations: [Other tear of lateral meniscus, current injury, right knee, subsequent encounter]Onset: 51-23-2740DajclqxeZaewb nervous system disorders (2 sources)Lesion of lateral popliteal nerve, right lower limb; Translations: [Lesion of lateral popliteal nerve, right lower limb]Onset: 03-35-2191Mcqnuak Other non-traumatic joint disorders (1 source)Pain in right knee; Translations: [Pain in right knee]Onset: 64-44-4872EnuhsjbrJxtsllouk-related disorders (1 source)Nicotine dependence, cigarettes, uncomplicated; Translations: [NICOTINE DEPENDENCE, CIGARETTES, UNCOMPLICATED]Onset: 42-65-6633Tfblffw Unclassified (2 sources)SPLENIC LACERATIONOnset: 42-19-0741Lypxkttkadod (1 source)Post-opOnset: 01-03-2024 Past or Other Problems Problem ClassificationProblemDateDocumented DateEpisodic/ChronicOther connective tissue disease (2 sources)Iliotibial band syndrome, right leg; Translations: [Iliotibial band syndrome, right leg]Onset: 86-24-7961KeqwhprwTznafryu codes; unclassified (1 source)PainOnset: 98-80-3492Lvnwapvq Results Test NameValueInterpretationReference RangeFacilityCult,Genitalon 02-20-2024 Cult,GenitalSpecimen Description .VAGINA Culture NORMAL URO-GENITAL TAMI NEGATIVE FOR GROUP B STREPTOCOCCI NEGATIVE FOR NEISSERIA GONORRHOEAE Report Status FINAL 02/20/2024NormalMerNorwalk HospitalComment on above: Performed By: #### [facility] #### [address] [address] Print Line Feeder: Oz Lipscomb MD [facility] [address] [place] [address] [place] [address] Print Line Feeder: VIVI Mendozahlamydia/GC DNA, TPon 88-44-0489Lzvsddnpl Probe, TPNegativeNormnvNEGUniversity Hospitals Tripoint Medical CenterComcaro center on above:Result Comment: CHLAMYDIA TRACHOMATIS DNA not [...] nucleic acid target.Performed By: #### [facility] #### [address] [address] Print Line Feeder: Oz Lipscomb MDGonorrhea Probe, TPNegativeNormalNEGUniversity Hospitals Tripoint Medical CenterComment on above:Result Comment: NEISSERIA GONORRHOEAE [...] nucleic acid target.Performed By: #### [facility] #### [address] [address] Print Line Feeder: VIVI Rankinytology Reporton [id number] report Cyto stain.thin prep Doc (Cvx/Vag)(NOTE) Path Number: [id number] DIAGNOSIS Imaged ThinPrep Pap - Cervical (1 monolayer slide): Specimen Adequacy: Satisfactory for evaluation. - Endocervical/transformation zone component present. Descriptive Diagnosis: Negative for intraepithelial lesion or malignancy. Comments: Specimen was screened at [facility], [address] [facility] [address] Cytotech Screener: CS Electronically Signed Out MORAIMA Chilel(ASCP) cs/02/27/2024 Source of Specimen: A: Imaged ThinPrep Pap - Cervical (1 monolayer slide) HPV Reflex?......................HPV if Abnormal Clinical History Z01.419 Routine cork sorter exam without abnormal findings Processing Lab: [address] [address] [place] [address] This Pap Test has been evaluated with [...] CYTOLOGY REPORT Patient Name: VIRGIE BISMARK [facility] Rec: [id number] [facility] ANATOMIC PATHOLOGY [address] [place] [address]. [place] [id number] [facility] Pathology Reporton [id number] Pathology Report(NOTE) Path Number: [id number] -- Diagnosis -- CERVIX, POLYPECTOMY: - BENIGN ENDOCERVICAL POLYP WITH FOCAL DYSTROPHIC CALCIFICATIONS AND CHRONIC INFLAMMATION. Louie Kang M.D. Electronically Signed Out [facility]/02/21/2024 Clinical Information Pre-Op Diagnosis: CERVICAL POLYP Operation Performed: [place] BIOPSY CERVIX SINGLE/MULT/EXCISION OF LESION SPX kb Source of Specimen A: CERVICAL POLYP Gross Description BISMARK FOURNIER CERVICAL POLYP Received in formalin is a 2.7 x 0.5 x 0.2 cm pink-garcia, polypoid fragment. The base is inked. Intact, 1cs. tm Amber Weiner/kb2:02/18/2024 Microscopic Description Microscopic examination performed. Processing Lab: [address] [address] Interpretation Performed at [place] [address] SURGICAL PATHOLOGY CONSULTATION Patient Name: BISMARK FOURNIER [facility] Rec: [id number] [facility] ANATOMIC PATHOLOGY [facility] [facility]. [place], [place] [address] [facility] HospitalMR KNEE RT WO CONTon [id number] KNEE RT WO CONTMR KNEE RT WO [...] Joseph Callahan MD on 12/04/2023 9:[address] [facility] W/DIFFon [id number] BASOPHILS0.1 10*3/uLNormal0.0-0.2The [facility] Portage Medical CenterComment on above:Performed By: #### 05432, #### [facility] [address] [place] [address], [facility] CENTERABS IMM GRANS0.0 10*3/uLNormal0.0-0.2The [facility] Medical CenterComment on above:Performed By: #### 44067, 43467 #### [facility] [address] [place] [address], USAABS NEUTROPHILS6.0 10*3/uLNormal1.6-7.6The [facility] Medical CenterComment on above:Performed By: #### 00103, #### [facility] [address] [facility] [place] [address], USABasophils #/vol (Bld)0.6 %Normal0.0-1.0The [facility] Portage Medical CenterComment on above:Performed By: #### 13866, #### [facility] [address] [facility] [place] [address], USAEosinophils #/vol (Bld)0.1 10*3/uLNormal0.0-0.5The [facility] Medical CenterComment on above:Performed By: #### 92196, #### [facility] [address] [facility] [place] [address], USAEosinophils/100 WBC (Bld)1.1 %Normal0.0-6.0The [facility] Medical CenterComment on above:Performed By: #### 84719, #### [facility] [address] [facility] [place] [address], USAErythrocyte distribution width Ratio (RBC)13.2 %Normal 11.5-15.0The [facility] Medical CenterComment on above:Performed By: #### 56744, #### [facility] [address] [place] [address], USAHematocrit Volume Fraction (Bld)38.6 %Yhsteu59.0-45.0The [facility] Medical CenterComment on above:Performed By: #### 68049, #### [facility] [address] [facility] [place] [address], USAHemoglobin mass conc (Bld)13.1 g/cDCyoslx50.0-15.0The [facility] Medical CenterComment on above:Performed By: #### 74196, 41813 #### [facility] [address] [place] [address], [facility] MED[facility] CENTERIMMATURE GRANS0.2 %Normal0.0-1.0The [facility] Medical CenterComment on above:Performed By: #### 25536, #### [facility] [address] [place] [address], [facility] MEDICAL CENTERLymphocytes #/vol (Bld)1.6 10*3/uLNormal1.2-4.0The [facility] Medical CenterComment on above:Performed By: #### 87848, 43351 #### [facility] [address] [place] [address], [facility] MEDICAL CENTERLymphocytes/100 WBC (Bld)19.4 %Low20.0-45.0The [facility] Medical CenterComment on above:Performed By: #### 79238, 86093 #### [facility] [address] [place] [address], [facility] Entitic mass (RBC)32.6 jjJiljzq38.0-33.0The [facility] CenterComment on above:Performed By: #### 48272, 29527 #### [facility] [address] [place] [address], [facility]HC mass conc (RBC)33.9 g/aIFlmdhg57.0-35.0The [facility] CenterComment on above:Performed By: #### 32563, 07742 #### [facility] [address] [facility] [address], [facility] Entitic volume (RBC)96.0 iGSiznjg17.0-98.0The [facility] CenterComment on above:Performed By: #### 43770, 25618 #### [facility] [address] [place] [address], USAMonocytes #/vol (Bld)0.5 10*3/uLNormal0.1-1.0The [facility] CenterComment on above:Performed By: #### 09864, #### [facility] [address] [place] [address], USAMONOS5.7 %Normal5.0-12.0The [facility] CenterComment on above:Performed By: #### 33464, #### [facility] [address] [facility] [place] [address], USANeutrophils/100 WBC (Bld)73.0 %High40.0-72.0The [facility] Medical CenterComment on above:Performed By: #### 46190, #### [facility] [address] [facility] [place] [address], USANucleated RBC/100 WBC Ratio (Bld)0 %Normal0-0The [facility] CenterComment on above:Performed By: #### 15915, #### [facility] [address] [place] [address], USAPLAT AWW337 10*3/bFQghcih958-853Npu [facility] CenterComment on above:Performed By: #### 32041, #### [facility] [address] [facility] [place] [address], USARBC #/vol (Bld)4.02 10*6/uLNormal3.80-5.00The [facility] CenterComment on above:Performed By: #### 11969, #### [facility] [address] [place] [address], USAWBC #/vol (Bld)8.21 10*3/uLNormal4.00-10.60The [facility] CenterComment on above:Performed By: #### 13838, #### [facility] [address] [facility] [address], [facility] COMPLETE BLOOD COUNTon 42-20-7178Ieidgfwgpdz distribution width Ratio (RBC)13.1 %Xbguqb22.5-15.0The [facility] CenterComment on above:Order Comment: No: Do not add to previous draw Performed By: #### 89528, #### [facility] [address] [place] [address], [facility] MEDICAL CENTERHematocrit Volume Fraction (Bld)28.6 %Low36.0-45.0The [facility] CenterComment on above:Order Comment: No: Do not add to previous drawPerformed By: #### 23706, #### [facility] [address] [address], [facility] MEDICAL CENTERHemoglobin mass conc (Bld)9.6 g/dLLow12.0-15.0The [facility] CenterComment on above:Order Comment: No: Do not add to previous drawPerformed By: #### 53714, #### [facility] [address] [place] [address], [facility] Entitic mass (RBC)32.0 hqHrabyc41.0-33.0The [facility] CenterComment on above:Order Comment: No: Do not add to previous drawPerformed By: #### 34225, #### [facility] [address] [place] [address], [facility] CENTERMCHC mass conc (RBC)33.6 g/pEImhorz03.0-35.0The [facility] CenterComment on above:Order Comment: No: Do not add to previous drawPerformed By: #### 14649, #### [facility] [address] [place] [address], [facility] Entitic volume (RBC)95.3 aPGrnjjy45.0-98.0The [facility] CenterComment on above:Order Comment: No: Do not add to previous drawPerformed By: #### 03760, 40493 #### [facility] [address] [place] [address], USANucleated RBC/100 WBC Ratio (Bld)0 %Normal0-0The [facility] CenterComment on above:Order Comment: No: Do not add to previous drawPerformed By: #### 82289, #### [facility] [address] [place] [address], USAPLAT DUM973 10*3/eQOkxgwe653-669Vrm [facility] CenterComment on above:Order Comment: No: Do not add to previous draw Performed By: #### 02678, #### [facility] [address] [place] [address], USARBC #/vol (Bld)3.00 10*6/uLLow3.80-5.00The [facility] CenterComment on above:Order Comment: No: Do not add to previous drawPerformed By: #### 98140, #### [facility] [address] [place] [address], USAWBC #/vol (Bld)7.61 10*3/uLNormal4.00-10.60The [facility] CenterComment on above:Order Comment: No: Do not add to previous drawPerformed By: #### 60272, #### [facility] [address] [place] [address], USABASIC METABOLIC PANELon 98-17-0177Momjsda mass conc8.3 mg/dLLow8.6-10.3The [facility] CenterComment on above:Order Comment: No: Do not add to previous drawPerformed By: #### 55083, #### [facility] [address] [place] [address], USAChloride molar ywgm101 mmol/YVkpvot76-523Luu [facility] CenterComment on above:Order Comment: No: Do not add to previous drawPerformed By: #### 87337, #### [facility] [address] [place] [address], USACO2 molar conc29 mmol/IGewkvj47-72Zci [facility] CenterComment on above:Order Comment: No: Do not add to previous draw Performed By: #### 97981, #### [facility] [address] [place] [address], USACreatinine mass conc0.62 mg/dLNormal0.60-1.20The [facility] CenterComment on above:Order Comment: No: Do not add to previous drawPerformed By: #### 28331, #### [facility] [address] [place] [address], USAGFR/1.73 sq M predicted among blacks MDRD vol rate/area (S/P/Bld)mL/min/{1.73_m2}Normal>60The [facility] CenterComment on above:Order Comment: No: Do not add to previous drawPerformed By: #### 57258, #### [facility] [address] [place] [address], USAGFR/1.73 sq M predicted among non-blacks MDRD vol rate/area (S/P/Bld)mL/min/{1.73_m2}Normal>60The [facility] CenterComment on above:Order Comment: No: Do not add to previous drawPerformed By: #### 35681, #### [facility] [address] [place] [address], USAGlucose mass zjxi420 mg/gSKjwg11-410Mvf [facility] CenterComment on above:Order Comment: No: Do not add to previous drawPerformed By: #### 53249, #### [facility] [address] [place] [address], USAPotassium molar conc3.9 mmol/LNormal3.5-5.1The [facility] CenterComment on above:Order Comment: No: Do not add to previous drawPerformed By: #### 08162, #### [facility] [address] [place] [address], USASodium molar yeum384 mmol/OUzgxaa540-451Hrd [facility] CenterComment on above:Order Comment: No: Do not add to previous drawPerformed By: #### 35510, #### [facility] [address] [place] [address], USAUrea nitrogen mass conc7 mg/dLNormal7-25The [facility] CenterComment on above:Order Comment: No: Do not add to previous drawPerformed By: #### 42097, #### [facility] [address] [place] [address], USACBC COMPLETE BLOOD COUNTon 00-55-7283Fqspwjmvjje distribution width Ratio (RBC)13.2 %Mmmgbn71.5-15.0The [facility] CenterComment on above:Order Comment: No: Do not add to previous draw Performed By: #### 18409, #### [facility] [address] [place] [address], USAHematocrit Volume Fraction (Bld)27.7 %Low36.0-45.0The [facility] CenterComment on above:Order Comment: No: Do not add to previous drawPerformed By: #### 40990, #### [facility] [address] [place] [address], USAHemoglobin mass conc (Bld)9.3 g/dLLow12.0-15.0The [facility] CenterComment on above:Order Comment: No: Do not add to previous drawPerformed By: #### 19645, #### [facility] [address] [place] [address], USAMCH Entitic mass (RBC)32.3 eeUcouow33.0-33.0The [facility] CenterComment on above:Order Comment: No: Do not add to previous drawPerformed By: #### 30388, #### [facility] [address] [place] [address], [facility] mass conc (RBC)33.6 g/tVFnhpfo30.0-35.0The [facility] CenterComment on above:Order Comment: No: Do not add to previous drawPerformed By: #### 29981, #### [facility] [address] [facility] [address], [facility] Entitic volume (RBC)96.2 nLPdhfkw41.0-98.0The [facility] CenterComment on above:Order Comment: No: Do not add to previous drawPerformed By: #### 55040, #### [facility] [address] [facility] [place] [address], [facility] MEDICAL CENTERNucleated RBC/100 WBC Ratio (Bld)0 %Normal0-0The [facility] CenterComment on above:Order Comment: No: Do not add to previous drawPerformed By: #### 01204, #### [facility] [address] [facility] [place] [address], [facility]ICAL CENTERPLAT JSS513 10*3/xHCaleej388-225Lne [facility] CenterComment on above:Order Comment: No: Do not add to previous draw Performed By: #### 83236, #### [facility] [address] [facility] [address], [facility] CENTERRBC #/vol (Bld)2.88 10*6/uLLow3.80-5.00The [facility] CenterComment on above:Order Comment: No: Do not add to previous drawPerformed By: #### 35278, #### [facility] [address] [place] [address], [facility] CENTERWBC #/vol (Bld)7.66 10*3/uLNormal4.00-10.60The [facility] CenterComment on above:Order Comment: No: Do not add to previous drawPerformed By: #### 89026, #### [facility] [address] [place] [address], USAIRON BLOODon 57-44-2632Eazp mass conc32 ug/aUTdc93-712Hgy [facility] CenterComment on above:Order Comment: No: Do not add to previous drawPerformed By: #### 49535, #### [facility] [address] [place] [address], USABASIC METABOLIC PANELon 95-30-7388Gkvsbay mass conc8.8 mg/dLNormal8.6-10.3The [facility] CenterComment on above:Order Comment: No: Do not add to previous drawPerformed By: #### 13831, 70610 #### [facility] [address] [place] [address], USAChloride molar gstu423 mmol/GSxilov21-703Qqp [facility] CenterComment on above:Order Comment: No: Do not add to previous drawPerformed By: #### 14994, #### [facility] [address] [place] [address], USACO2 molar conc26 mmol/HRepzoz54-57Rfx [facility] CenterComment on above:Order Comment: No: Do not add to previous draw Performed By: #### 52717, 99159 #### [facility] [address] [place] [address], USACreatinine mass conc0.59 mg/dLLow0.60-1.20The [facility] CenterComment on above:Order Comment: No: Do not add to previous drawPerformed By: #### 75131, #### [facility] [address] [place] [address], USAGFR/1.73 sq M predicted among blacks MDRD vol rate/area (S/P/Bld)mL/min/{1.73_m2}Normal>60The [facility] CenterComment on above:Order Comment: No: Do not add to previous drawPerformed By: #### 59663, #### [facility] [address] [place] [address], USAGFR/1.73 sq M predicted among non-blacks MDRD vol rate/area (S/P/Bld)mL/min/{1.73_m2}Normal>60The [facility] CenterComment on above:Order Comment: No: Do not add to previous drawPerformed By: #### 49479, #### [facility] [address] [place] [address], USAGlucose mass lolr945 mg/lUOaol58-559Utx [facility] CenterComment on above:Order Comment: No: Do not add to previous drawPerformed By: #### 19516, #### [facility] [address] [place] [address], USAPotassium molar conc3.6 mmol/LNormal3.5-5.1The [facility] CenterComment on above:Order Comment: No: Do not add to previous drawPerformed By: #### 97957, #### [facility] [address] [place] [address], USASodium molar jntn373 mmol/DEtrbfc695-989Hoa [facility] CenterComment on above:Order Comment: No: Do not add to previous drawPerformed By: #### 32974, #### [facility] [address] [place] [address], USAUrea nitrogen mass conc7 mg/dLNormal7-25The [facility] CenterComment on above:Order Comment: No: Do not add to previous drawPerformed By: #### 25713, #### [facility] [address] [place] [address], [facility] COMPLETE BLOOD COUNTon 56-10-4250Mfcaamuwvee distribution width Ratio (RBC)13.1 %Dmijbj17.5-15.0The [facility] CenterComment on above:Order Comment: No: Do not add to previous draw Performed By: #### 29696, #### [facility] [address] [place] [address], USAHematocrit Volume Fraction (Bld)28.4 %Low36.0-45.0The [facility] CenterComment on above:Order Comment: No: Do not add to previous drawPerformed By: #### 49315, #### [facility] [address] [place] [address], [facility] MEDICAL CENTERHemoglobin mass conc (Bld)9.9 g/dLLow12.0-15.0The [facility] CenterComment on above:Order Comment: No: Do not add to previous drawPerformed By: #### 44182, #### [facility] [address] [place] [address], [facility] Entitic mass (RBC)33.6 rvRqdy36.0-33.0The [facility] CenterComment on above:Order Comment: No: Do not add to previous drawPerformed By: #### 10306, #### [facility] [address] [place] [address], [facility] mass conc (RBC)34.9 g/gQSmqylv58.0-35.0The [facility] CenterComment on above:Order Comment: No: Do not add to previous drawPerformed By: #### 62816, #### [facility] [address] [place] [address], [facility] Entitic volume (RBC)96.3 vEOblaix52.0-98.0The [facility] CenterComment on above:Order Comment: No: Do not add to previous drawPerformed By: #### 69500, #### [facility] [address] [place] [place] [address], USANucleated RBC/100 WBC Ratio (Bld)0 %Normal0-0The [facility] CenterComment on above:Order Comment: No: Do not add to previous drawPerformed By: #### [id number], #### [facility] [address] [place] [address], USAPLAT PIO736 10*3/iQWftanv409-265Qpv [facility] CenterComment on above:Order Comment: No: Do not add to previous draw Performed By: #### [id number], #### [facility] [address] [place] [address], [facility] CENTERRBC #/vol (Bld)2.95 10*6/uLLow3.80-5.00The [facility] CenterComment on above:Order Comment: No: Do not add to previous drawPerformed By: #### [id number], #### [facility] [address] [place] [address], USAWBC #/vol (Bld)8.21 10*3/uLNormal4.00-10.60The [facility] CenterComment on above:Order Comment: No: Do not add to previous drawPerformed By: #### [id number], #### [facility] [address] [place] [address], [facility]ICAL CENTERCT ABDOMEN AND PELVIS W CONTRASTon [id number] ABDOMEN AND PELVIS W CONTRASTUnSycamore Medical Center Department of Radiology [address] [place] [address] Patient Name: BISMARK FOURNIER : 1980 Sex: F Age: Race: White Pt. Location: [id number] Patient Status: I Ordered Date: 01/24/2019 9:25:00 [...] findings. Electronically signed by:Jennifer Amaro. Transcribed by: [email or web address], User Resident: NOAM ROBLES Electronically Signed by: JENNIFER AMARO @ 01/24/2019 01:07 PM I personally read this/these film(s) with this residentNoAultman Orrville Hospitale [facility] CenterComment on above:Order Comment: No: Do not add to previous drawLACTATE BLOODon 92-76-1439Coyvdph molar conc0.5 mmol/LNormal0.5-2.2The [facility] CenterComment on above:Order Comment: No: Do not add to previous drawPerformed By: #### 76470, #### [facility] [address] [facility] [place] [address], USAMAGNESIUM BLOODon 65-18-2723Ggaampohy mass conc2.0 mg/dL Normal1.9-2.7The [facility] CenterComment on above:Order Comment: No: Do not add to previous drawPerformed By: #### 23550, #### [facility] [address] [facility] [address], USAPORTABLE CHEST 1 VIEWon [id number] CHEST 1 VIEW [facility] Department of Radiology [address] [place] [id number] Patient Name: BISMARK FOURNIER : 1980 Sex: F Age: Race: White Pt. Location: [address] [place] [address] Patient Status: I Ordered Date: 01/24/2019 9:25:00 [...] effusion. Electronically signed by:Ariela Villegas. Transcribed by: [email or web address], User Resident: Electronically Signed by: ARIELA VILLEGAS @ 01/24/2019 01:34 PMNormalThe [facility] CenterComment on above:Order Comment: No: Do not add to previous drawPROTHROMBIN TIMEon [id number] Coag RelTime (PPP)1.04 {INR}Normal0.91-1.16[facility] HospitalComment on above: Order Comment: No: Do [...] OPTIMAL THERAPEUTIC RANGE. CHEST 1995;108:231S-246S.Performed By: #### 69135, #### [facility] [address] [facility] [place] [address], [facility] MEDICAL CENTERProthrombin time (PT) Coag time (PPP)13.6 yWaiajx30.3-14.8 The [facility] CenterComment on above:Order Comment: No: Do not add to previous drawResult Comment: ALL RESULTS MUST BE INTERPRETED WITH RESPECT TO BLOOD DRAWING ARTIFACT OR DILUTION ERROR OF ANTICOAGULANT AT THE TIME OF SAMPLING.Performed By: #### 55090, #### [facility] [address] [facility] [place] [address], [facility] MEDICAL CENTERHEMATOCRITon 30-09-6203Qbqszyozuo Volume Fraction (Bld)29.7 %Low36.0-45.0The [facility] CenterComment on above:Order Comment: No: Do not add to previous drawPerformed By: #### 86251, #### [facility] [address] [facility]. [place] [address], USAHEMOGLOBINon 21-64-0264Uwrxivixqq mass conc (Bld)10.7 g/dL Low12.0-15.0The [facility] CenterComment on above:Order Comment: No: Do not add to previous drawPerformed By: #### 25051, #### [facility] [address] [place] [address], USABASIC METABOLIC PANELon 46-34-4211Dakpokx mass conc7.6 mg/dLLow8.6-10.3The [facility] CenterComment on above:Order Comment: No: Do not add to previous drawPerformed By: #### 18716, #### [facility] [address] [place] [address], USAChloride molar uecr351 mmol/KYklb62-373Fle [facility] CenterComment on above:Order Comment: No: Do not add to previous drawPerformed By: #### 77989, #### [facility] [address] [place] [address], USACO2 molar conc20 mmol/NGwk79-54Ier [facility] CenterComment on above:Order Comment: No: Do not add to previous draw Performed By: #### 84744, #### [facility] [address] [place] [address], USACreatinine mass conc0.59 mg/dLLow0.60-1.20The [facility] CenterComment on above:Order Comment: No: Do not add to previous drawPerformed By: #### 89127, #### [facility] [address] [place] [address], USAGFR/1.73 sq M predicted among blacks MDRD vol rate/area (S/P/Bld)mL/min/{1.73_m2}Normal>60The [facility] CenterComment on above:Order Comment: No: Do not add to previous drawPerformed By: #### 27943, #### [facility] [address] [place] [address], USAGFR/1.73 sq M predicted among non-blacks MDRD vol rate/area (S/P/Bld)mL/min/{1.73_m2}Normal>60The [facility] CenterComment on above:Order Comment: No: Do not add to previous drawPerformed By: #### 70705, #### [facility] [address] [place] [address], USAGlucose mass conc68 mg/oNHfp23-244Yru [facility] CenterComment on above:Order Comment: No: Do not add to previous draw Performed By: #### 40832, #### [facility] [address] [place] [address], USAPotassium molar conc3.7 mmol/LNormal3.5-5.1The [facility] CenterComment on above:Order Comment: No: Do not add to previous drawPerformed By: #### 46444, #### [facility] [address] [place] [address], USASodium molar kycp037 mmol/PFxffii020-607Ryo [facility] CenterComment on above:Order Comment: No: Do not add to previous drawPerformed By: #### 90851, #### [facility] [address] [place] [address], USAUrea nitrogen mass conc8 mg/dLNormal7-25The [facility] CenterComment on above:Order Comment: No: Do not add to previous drawPerformed By: #### 56172, #### [facility] [address] [place] [address], USACBC COMPLETE BLOOD COUNTon 56-73-3405Hwtgahafpcu distribution width Ratio (RBC)13.3 %Tewuqt37.5-15.0The [facility] CenterComment on above:Order Comment: No: Do not add to previous draw Performed By: #### 71802, #### [facility] [address] [place] [address], USAHematocrit Volume Fraction (Bld)28.7 %Low36.0-45.0The [facility] CenterComment on above:Order Comment: No: Do not add to previous drawPerformed By: #### 08739, #### [facility] [address] [place] [address], [facility] MEDICAL CENTERHemoglobin mass conc (Bld)9.9 g/dLLow12.0-15.0The [facility] CenterComment on above:Order Comment: No: Do not add to previous drawPerformed By: #### 08581, #### [facility] [address] [place] [address], [facility] Entitic mass (RBC)32.6 rsGakixc08.0-33.0The [facility] CenterComment on above:Order Comment: No: Do not add to previous drawPerformed By: #### 48690, #### [facility] [address] [place] [address], [facility] CENTERMCHC mass conc (RBC)34.5 g/wCCyypqo82.0-35.0The [facility] CenterComment on above:Order Comment: No: Do not add to previous drawPerformed By: #### 98182, #### [facility] [address] [place] [address], [facility] Entitic volume (RBC)94.4 eACqxbgg36.0-98.0The [facility] CenterComment on above:Order Comment: No: Do not add to previous drawPerformed By: #### 22662, #### [facility] [address] [place] [address], [facility] CENTERNucleated RBC/100 WBC Ratio (Bld)0 %Normal0-0The [facility] CenterComment on above:Order Comment: No: Do not add to previous drawPerformed By: #### 58574, #### [facility] [address] [place] [address], USAPLAT QEM101 10*3/sMUxixem162-097Jom [facility] CenterComment on above:Order Comment: No: Do not add to previous draw Performed By: #### 64796, #### [facility] [address] [place] [address], [facility] CENTERRBC #/vol (Bld)3.04 10*6/uLLow3.80-5.00The [facility] CenterComment on above:Order Comment: No: Do not add to previous drawPerformed By: #### 15905, #### [facility] [address] [facility] [place] [address], [facility] MEDICAL CENTERWBC #/vol (Bld)8.22 10*3/uLNormal4.00-10.60The [facility] CenterComment on above:Order Comment: No: Do not add to previous drawPerformed By: #### 78540, #### [facility] [address] [place] [address], USAALCOHOLon 64-93-3951Oogghcm mass concSUMMIT HEALTHCARE REGIONAL MEDICAL CENTERE [facility] Warren HospitalComment on above:Order Comment: No: Do not add to previous drawResult Comment: Divide by 1000 to convert mg/dL to percent. Example: 100mg/dL = 0.1%.Performed By: #### 84001, #### [facility] [address] [facility] [place] [address], [facility]ICAL CENTERCBC COMPLETE BLOOD COUNTon 97-90-0215Pgsxzzdmdhi distribution width Ratio (RBC)14.1 %Vatuze82.5-15.0The [facility] CenterComment on above:Order Comment: No: Do not add to previous draw Performed By: #### 53089 #### [facility] [address] [place] [address], [facility] MEDICAL CENTERHematocrit Volume Fraction (Bld)30.2 %Low36.0-45.0The [facility] CenterComment on above:Order Comment: No: Do not add to previous drawPerformed By: #### 08056 #### [facility] [address] [place] [address], [facility] MEDICAL CENTERHemoglobin mass conc (Bld)10.5 g/dLLow12.0-15.0The [facility] CenterComment on above:Order Comment: No: Do not add to previous drawPerformed By: #### 20350 #### [facility] [address] [place] [address], [facility] Entitic mass (RBC)32.9 pnVrtust55.0-33.0The [facility] CenterComment on above:Order Comment: No: Do not add to previous drawPerformed By: #### 32033 #### [facility] [address] [place] [address], [facility]HC mass conc (RBC)34.8 g/zGJhwmmp06.0-35.0The [facility] CenterComment on above:Order Comment: No: Do not add to previous drawPerformed By: #### 12267 #### [facility] [address] [facility]. [place] [address], [facility] Entitic volume (RBC)94.7 eZBioptk17.0-98.0The [facility] CenterComment on above:Order Comment: No: Do not add to previous drawPerformed By: #### 94344 #### [facility] [address] [facility] [place] [address], USANucleated RBC/100 WBC Ratio (Bld)0 %Normal0-0The [facility] CenterComment on above:Order Comment: No: Do not add to previous drawPerformed By: #### 22391 #### [facility] [address] [facility] [address], USAPLAT FCJ768 10*3/bQQwqkdr317-194Lra [facility] CenterComment on above:Order Comment: No: Do not add to previous draw Performed By: #### 26255 #### [facility] [address] [place] [address], USARBC #/vol (Bld)3.19 10*6/uLLow3.80-5.00The [facility] CenterComment on above:Order Comment: No: Do not add to previous drawPerformed By: #### 69329 #### [facility] [address] [place] [address], USAWBC #/vol (Bld)8.12 10*3/uLNormal4.00-10.60The [facility] CenterComment on above:Order Comment: No: Do not add to previous drawPerformed By: #### 87167 #### [facility] [address] [place] [address], USAErythrocyte distribution width Ratio (RBC)13.3 %Normal 11.5-15.0The [facility] CenterComment on above:Order Comment: if not done in ED No: Do not add to previous drawPerformed By: #### 33619 #### [facility] [address] [place] [address], USAHematocrit Volume Fraction (Bld)32.4 %Low36.0-45.0The [facility] CenterComment on above:Order Comment: if not done in ED No: Do not add to previous drawPerformed By: #### 60625 #### [facility] [address] [place] [address], USAHemoglobin mass conc (Bld)11.4 g/dLLow12.0-15.0The [facility] CenterComment on above:Order Comment: if not done in ED No: Do not add to previous drawPerformed By: #### 02884 #### [facility] [address] [place] [address], USAMCH Entitic mass (RBC)32.9 dwXbdupc09.0-33.0The [facility] CenterComment on above:Order Comment: if not done in ED No: Do not add to previous drawPerformed By: #### 44621 #### [facility] [address] [place] [address], [facility] mass conc (RBC)35.2 g/lESshq76.0-35.0The [facility] CenterComment on above:Order Comment: if not done in ED No: Do not add to previous drawPerformed By: #### 40442 #### [facility] [address] [facility] [place] [address], [facility] Entitic volume (RBC)93.4 jCUgdcmz92.0-98.0The [facility] CenterComment on above:Order Comment: if not done in ED No: Do not add to previous drawPerformed By: #### 14699 #### [facility] [address] [place] [address], [facility] MED[facility] CENTERNucleated RBC/100 WBC Ratio (Bld)0 %Normal0-0The [facility] CenterComment on above:Order Comment: if not done in ED No: Do not add to previous drawPerformed By: #### 37314 #### [facility] [address] [place] [address], [facility] CENTERPLAT PMB309 10*3/mGQqasej665-455Udc [facility] CenterComment on above:Order Comment: if not done in ED No: Do not add to previous drawPerformed By: #### 31636 #### [facility] [address] [place] [place] [address], [facility] CENTERRBC #/vol (Bld)3.47 10*6/uLLow3.80-5.00The [facility] CenterComment on above:Order Comment: if not done in ED No: Do not add to previous drawPerformed By: #### 83958 #### [facility] [address] [place] [address], [facility] MEDICAL CENTERWBC #/vol (Bld)10.45 10*3/uLNormal4.00-10.60The [facility] CenterComment on above:Order Comment: if not done in ED No: Do not add to previous drawPerformed By: #### 20511 #### [facility] [address] [place] [address], USACOMP METABOLIC PANELon 00-18-5980Lzuegdg mass conc3.6 g/dL Normal3.5-5.7The [facility] CenterComment on above:Order Comment: No: Do not add to previous drawPerformed By: #### 09904, 35085, 82267 #### [facility] [address] [place] [address], USAALKALINE KCBFTG48 IU/AWhn42-681Chb [facility] CenterComment on above:Order Comment: No: Do not add to previous draw Performed By: #### 08951, 44809, 48273 #### [facility] [address] [place] [address], USAALT enzyme act/vol10 U/LNormal7-52The [facility] CenterComment on above:Order Comment: No: Do not add to previous draw Performed By: #### 29322, 27202, 07780 #### [facility] [address] [place] [address], USAAST enzyme act/vol18 U/FPbzrxw56-18Qsb [facility] CenterComment on above:Order Comment: No: Do not add to previous draw Performed By: #### 73310, 40353, 56910 #### [facility] [address] [place] [address], USABilirubin mass conc1.0 mg/dLNormal0.3-1.0The [facility] CenterComment on above:Order Comment: No: Do not add to previous drawPerformed By: #### 20672, 58242, 22395 #### [facility] [address] [place] [address], USACalcium mass conc7.8 mg/dLLow8.6-10.3The [facility] CenterComment on above:Order Comment: No: Do not add to previous drawPerformed By: #### 79562, 39719, 36439 #### [facility] [address] [place] [address], USAChloride molar sfim675 mmol/OOkkl08-976Kir [facility] CenterComment on above:Order Comment: No: Do not add to previous drawPerformed By: #### 89239, 75728, 47567 #### [facility] [address] [place] [address], USACO2 molar conc24 mmol/MQxncwq42-96Sjz [facility] CenterComment on above:Order Comment: No: Do not add to previous draw Performed By: #### 84183, 47887, 85928 #### [facility] [address] [place] [address], USACreatinine mass conc0.69 mg/dLNormal0.60-1.20The [facility] CenterComment on above:Order Comment: No: Do not add to previous drawPerformed By: #### 35766, 50418, 81279 #### [facility] [address] [place] [address], USAGFR/1.73 sq M predicted among blacks MDRD vol rate/area (S/P/Bld)mL/min/{1.73_m2}Normal>60The [facility] CenterComment on above:Order Comment: No: Do not add to previous drawPerformed By: #### 20381, 72948, 20561 #### [facility] [address] [place] [address], USAGFR/1.73 sq M predicted among non-blacks MDRD vol rate/area (S/P/Bld)mL/min/{1.73_m2}Normal>60The [facility] CenterComment on above:Order Comment: No: Do not add to previous drawPerformed By: #### 27805, 24636, 68204 #### [facility] [address] [place] [address], USAGlucose mass conc95 mg/pBGhgxld07-863Niq [facility] CenterComment on above:Order Comment: No: Do not add to previous drawPerformed By: #### 65799, 91447, 10715 #### [facility] [address] [place] [address], USAPotassium molar conc3.7 mmol/LNormal3.5-5.1The [facility] CenterComment on above:Order Comment: No: Do not add to previous drawPerformed By: #### 06459, 44339, 41960 #### [facility] [address] [place] [address], USAProtein mass conc5.0 g/dLLow6.0-8.3The [facility] CenterComment on above:Order Comment: No: Do not add to previous draw Performed By: #### 69767, 17411, 83722 #### [facility] [address] [facility] [place] [address], USASodium molar wksr561 mmol/EIwvyvw158-594Wte [facility] CenterComment on above:Order Comment: No: Do not add to previous drawPerformed By: #### 71435, 94045, 96189 #### [facility] [address] [facility] [place] [address], USAUrea nitrogen mass conc6 mg/dLLow7-25The [facility] CenterComment on above:Order Comment: No: Do not add to previous drawPerformed By: #### 08084, 51664, 98647 #### [facility] [address] [facility] [place] [address], USACT 3D CERVICAL SPINE WO CONTRASTon [id number] 3D CERVICAL SPINE WO CONTRASTUnSycamore Medical Center Department of Radiology [address] [place] [id number] Patient Name: BISMARK FOURNIER : 1980 Sex: F Age: Race: White Pt. Location: [id number] Patient Status: I Ordered Date: 01/16/2019 9:55:00 [...] head were obtained without IV contrast. (accession [id number]), Axial CT images of the spine were obtained without IV contrast. (accession [id number]) TECHNIQUE: Multi detector CT axial slices of [...] collar Electronically signed by:Sole Hayes. Transcribed by: [email or web address], User Resident: Electronically Signed by: SOLE HAYES @ 01/17/2019 11:20 AMNormalThe [facility] CenterComment on above:Order Comment: No: Do not add to previous drawCT ABDOMEN AND PELVIS W CONTRASTon [id number] ABDOMEN AND PELVIS W CONTRASTUnSycamore Medical Center Department of Radiology [address] [place] [id number] Patient Name: BISMARK FOURNIER : 1980 Sex: F Age: Race: White Pt. Location: [id number] Patient Status: I Ordered Date: 01/16/2019 9:55:00 [...] study. Electronically signed by:Jennifer Amaro. Transcribed by: [email or web address], User Resident: Electronically Signed by: JENNIFER AMARO @ 01/17/2019 08:15 AMNormalThe [facility] CenterComment on above:Order Comment: No: Do not add to previous drawCT BRAIN WO CONTRASTon [id number] BRAIN WO CONTRAST [facility] Department of Radiology [address] [place] [id number] Patient Name: BISMARK FOURNIER : 1980 Sex: F Age: Race: White Pt. Location: [id number] Patient Status: I Ordered Date: 01/16/2019 9:55:00 [...] head were obtained without IV contrast. (accession [id number]), Axial CT images of the spine were obtained without IV contrast. (accession [id number]) TECHNIQUE: Multi detector CT axial slices of [...] collar Electronically signed by:Sole Hayes. Transcribed by: [id number], User Resident: Electronically Signed by: SOLE HAYES @ 01/17/2019 11:20 AMNSelect Medical Specialty Hospital - Cleveland-FairhillComment on above:Order Comment: No: Do not add to previous drawCT CHEST W CONTRASTon [id number] CHEST W CONTRAST [facility] Department of Radiology [address] [place] [address] Patient Name: BISMARK FOURNIER : 1980 Sex: F Age: Race: White Pt. Location: [id number] Patient Status: I Ordered Date: 01/16/2019 9:55:00 [...] findings. Electronically signed by:Claudia Alegria. Transcribed by: [email or web address], User Resident: JEFFERY SRIVASTAVA Electronically Signed by: CLAUDIA ALEGRIA @ 01/17/2019 06:30 PM I personally read this/these film(s) with this [facility] HospitalComment on above:Order Comment: No: Do not add to previous drawHEMATOCRITon 76-12-0063Jkrymjfcpq Volume Fraction (Bld)29.2 %Low36.0-45.0The [facility] CenterComment on above:Order Comment: No: Do not add to previous drawPerformed By: #### 88809 #### [facility] [address] [place] [address], [facility] MED[facility] CENTERHematocrit Volume Fraction (Bld)28.9 %Low36.0-45.0The [facility] CenterComment on above:Order Comment: No: Do not add to previous drawPerformed By: #### [id number] #### [facility] [address] [place] [address], USAHEMOGLOBINon 93-83-2982Ahoequkbae mass conc (Bld)9.9 g/dL Low12.0-15.0The [facility] CenterComment on above:Order Comment: No: Do not add to previous drawPerformed By: #### [id number] #### [facility] [address] [place] [address], [facility] MEDICAL CENTERHemoglobin mass conc (Bld)10.1 g/dLLow12.0-15.0The [facility] CenterComment on above:Order Comment: No: Do not add to previous drawPerformed By: #### [id number] #### [facility] [address] [place] [address], USAHistory and Physicalon 88-67-2693Wpwwipk and PhysicalMR#: [id number] [facility] Pt. Name: Bismark Fournier Admitted: 01/16/2019 Date of : 1980 Attending Physician: Karla Marsh MD Room #: 3CD [id number] Discharge Date: HISTORY AND PHYSICAL SERVICE: Trauma [...] p.r.n. and Percocet p.r.n. 2. Cardio: Continue quality assurance monitor for hemodynamic instability. 3. Pulmonary: Continue [...] Reid MD Date Trans: 01/17/2019 04:34 A/mmo DN_JN:[id number] Health AdministrationLACTATE BLOODon 46-92-6734Xsarmmu molar conc0.4 mmol/LLow0.5-2.2The [facility] CenterComment on above:Order Comment: No: Do not add to previous drawPerformed By: #### [id number] #### [facility] [address] [place] [address], USALactate molar conc0.6 mmol/LNormal0.5-2.2The [facility] CenterComment on above:Order Comment: No: Do not add to previous drawPerformed By: #### [id number] #### [facility] [address] [place] [address], USALactate molar conc0.5 mmol/LNormal0.5-2.2The [facility] Medical CenterComment on above:Order Comment: No: Do not add to previous drawPerformed By: #### [id number], [id number] #### [facility] [address] [place] [address], USAMAGNESIUM BLOODon 81-74-0751Gzjrzzgbo mass conc1.9 mg/dL Normal1.9-2.7The [facility] CenterComment on above:Order Comment: No: Do not add to previous drawPerformed By: #### 45530, [id number], [id number] #### [facility] [address] [place] [address], USAPHOSPHORUS BLOODon 82-52-8513Zcnxgfbqm mass conc3.5 mg/dL Normal2.5-5.0The [facility] CenterComment on above:Order Comment: No: Do not add to previous drawPerformed By: #### [id number], 45524, 91515 #### [facility] [address] [place] [address], USATYPE AND SCREENon 12-47-8659YXU [facility] John Medical CenterComment on above:Performed By: #### [id number] #### [facility] [address] [place] [address], USARH INTERPRETATIONPositiveVeterans Health AdministrationComment on above:Performed By: #### [id number] #### [facility] [address] [place] [address], USARBC'S 4 UNITSon 02-40-9662MUPIAMUVAV INTERP 1CDayton Osteopathic HospitalComment on above:Performed By: #### [id number] #### [facility] [address] [place] [address], [facility] MEDICAL CENTERCROSSMATCH INTERP 2CDayton Osteopathic HospitalComment on above:Performed By: #### [id number] #### [facility] [address] [place] [address], USACROSSMATCH INTERP 3CDayton Osteopathic HospitalComment on above:Performed By: #### [id number] #### [facility] [address] [place] [address], USACROSSMATCH INTERP 4CDayton Osteopathic HospitalComment on above:Performed By: #### [id number] #### [facility] [address] [place] [address], USAProtein mass hnkt394 g/dLNoSCCI Hospital LimaComment on above:Performed By: #### [id number] #### [facility] [address] [place] [address], USAProtein mass concREVeterans Health AdministrationComment on above:Result Comment: Result changed by IF on 01/19/2019 12:18. The previous value was XM. Result changed by IF on 01/19/2019 14:48. The previous value was XX.Performed By: #### [id number] #### [facility] [address] [place] [address], USAResult Comment: Result changed by IF on 01/20/2019 07:18. The previous value was XM.UNIT ABO 1AVeterans Health AdministrationComment on above:Performed By: #### [id number] #### [facility] [address] [place] [address], USAUNIT ABO 2AVeterans Health Administration Comment on above:Performed By: #### 58026 #### [facility] [address] [place] [address], USAUNIT ABO 3AVeterans Health Administration Comment on above:Performed By: #### [id number] #### [facility] [address] [place] [address], USAUNIT ABO 4AVeterans Health Administration Comment on above:Performed By: #### [id number] #### [facility] [address] [place] [address], USAUNIT ID [id number] Reserve HospitalComment on above:Performed By: #### [id number] #### [facility] [address] [place] [address], USAUNIT ID [id number] Reserve HospitalComment on above:Performed By: #### [id number] #### [facility] [address] [place] [address], USAUNIT ID [id number] Reserve HospitalComment on above:Performed By: #### [id number] #### [facility] [address] [place] [address], USAUNIT ID [id number] Reserve HospitalComment on above:Performed By: #### [id number] #### [facility] [address] [place] [address], USAUNIT RH 1PositiveNormMarymount HospitalComment on above:Performed By: #### [id number] #### [facility] [address] [place] [address], USAUNIT RH 2PositiveNormMarymount HospitalComment on above:Performed By: #### [id number] #### [facility] [address] [place] [address], USAUNIT RH 3PositiveNoSCCI Hospital LimaComment on above:Performed By: #### [id number] #### [facility] [address] [place] [address], USAUNIT RH 4PositiveNoSCCI Hospital LimaComment on above:Performed By: #### [id number] #### [facility] [address] [place] [address], USATOX PANEL URINEon THCPositiveAbnormalNEGATIVE The [facility] Medical CenterComment on above:Order Comment: No: Do not add to previous drawPerformed By: #### [id number] #### [facility] [address] [place] [address], USABARBITURATESNegativeNormalNEGATIVEThe [facility]als [facility] Medical CenterComment on above:Order Comment: No: Do not add to previous draw Performed By: #### [id number] #### [facility] [address] [place] [address], USABenzodiazepines Ql (U)NegativeNormalNEGATIVEThe [facility] Medical CenterComment on above:Order Comment: No: Do not add to previous drawPerformed By: #### [id number] #### [facility] [address] [place] [address], USACocaine Ql (U)NegativeNormalNEGATIVEThe [facility] Medical CenterComment on above:Order Comment: No: Do not add to previous drawPerformed By: #### [id number] #### [facility] [address] [place] [address], USAMethadone Ql (U)NegativeNormalNEGATIVEThe [facility] Medical CenterComment on above:Order Comment: No: Do not add to previous drawPerformed By: #### 92513 #### [facility] [address] [place] [address], USAMONO AMPHETNegativeNormalNEGATIVEThe [facility] Medical CenterComment on above:Order Comment: No: Do not add to previous draw Performed By: #### 54095 #### [facility] [address] [place] [address], USAOpiates Ql (U)PositiveAbnormalNEGATIVEThe [facility] Medical CenterComment on above:Order Comment: No: Do not add to previous drawPerformed By: #### [id number] #### [facility] [address] [place] [address], USAPhencyclidine Ql (U)NegativeNormalNEGATIVEThe [facility] Medical CenterComment on above:Order Comment: No: Do not add to previous drawPerformed By: #### [id number] #### [facility] [address] [place] [address], USAProtein mass conc (U)NegativeNormalNEGATIVEThe [facility] CenterComment on above:Order Comment: No: Do not add to previous drawPerformed By: #### [id number] #### [facility] [address] [place] [address], USATRICYCLICSNegativeNormalNEGATIVEThe [facility] Port[facility] Medical CenterComment on above:Order Comment: No: Do not add to previous draw Performed By: #### [id number] #### [facility] [address] [place] [address], [place] Encounters Encounter DateEncounter TypeCare ProviderFacilityStart: 02-17-2024 End: 35-86-1372zioivyetyyOQVIKH W HEDGESMercy [facility] HospitalStart: 02-17-2024 Encounter for gynecological examination (general) (routine) without abnormal findingsTRACE Wade [facility] HospitalStart: 02-10-2024 End: 07-93-8971jtgttqyomvEVHUIAEHegg Health Center [facility]vera Ambulatory PPGStart: 01-26-2024 End: 30-59-7496owrpoyqzebNEBXTEVVQ SCHNEIDERNot AvailableStart: 01-03-2024 End: 61-98-1939oxpgtgkgbbULSEWWQHegg Health Center Avera Ambulatory PPGStart: 12-01-2023 End: 88-78-1066usdifzdkgeCTPGH J [address] HospitalStart: 11-18-2023 End: 88-26-3108yhfwefnmgsYKJQY [facility] Ambulatory PPGStart: 11-01-2023 End: 27-26-5720pvuuqqejqgPKFYUF [facility] Ambulatory PPGStart: 70-74-0069tnfcjwirrjSHACBG CRAMERFacility:D3Jssbe: 02-06-2019 End: 64-55-8298Jhdzbla encounter procedureHEATHER R KLEPACZFacility:[facility]CHOtart: 01-24-2019 End: 12-34-3274Fqspdumrny and management of inpatientSTEPMARILUDEREK HENDERSON Facility:[facility]tart: 01-16-2019 End: 80-79-1719Qgxpaywfeu and management of inpatientHEATHER R VICKI Facility:[facility] Procedures DateProcedureProcedure DetailPerforming ClinicianStart: 23-11-6564Qeymac-up visitFollow-upTYROSI Winkler K[facility] HOSPITALSStart: 34-29-2983KQLGRHSGXQYP OF SERUM/TOX/VACCINE INTO MUSCLE, PERC APPROACHJORGE A ORTIZStart: 16-01-6877Cieuspwr screenHEATHER KLEPACZComment on above:Performed By: #### [id number] #### [address] Payers DatePayer CategoryPayerPolicy [id number] [id number] 2.16.840.1.589175.3.57[id number] 2.16.840.1.901638.3.57[id number] 2.16.840.1.094046.3.57[id number] 2.16.840.1.430329.3.57[id number] 2.16.840.1.465803.3.57[id number] 2..840.1.072291.3.57[id number] 2.16.840.1.496375.3.57[id number] 2.16.840.1.143854.3.57[id number] 2.16.840.1.813667.3.57[id number] 2.840.1.546192.3.57[id number] 2.16840.1.986451.3.579.2.14545-48-3305Wzpi-[id number] Summary Purpose Family History No Family History Records FoundNo Family History Records FoundNo Family History Records FoundNo Family History Records FoundNo Family History Records FoundNo Family History Records Found Advance Directives No Advanced Directives Records FoundNo Advanced Directives Records FoundNo Advanced Directives Records FoundNo Advanced Directives Records FoundNo Advanced Directives Records FoundNo Advanced Directives Records Found Hospital Course Note MR#: [id number] [facility] Pt. Name: Bismark Fournier Admitted: 01/16/2019 [...] content not included)... Note MR#: [id number] [facility] Pt. Name: Bismark Fournier Admitted: 01/24/2019 [...] decided to go to the ER in [place] instead. She was re-ev (more content not included)... Additional Source Comments INFORMATION SOURCE (unrecogn ized section and content) DATE CREATED AUTHOR 02/10/2019 [facility] DATE CREATED AUTHOR AUTHOR'S ORGANIZ ATION 11/03/2022 The DATE CREATED AUTHOR AUTHOR'S ORGANIZ ATION 12/05/2023 [facility] DATE CREATED AUTHOR AUTHOR'S ORGANIZ ATION 01/27/2024 [facility] EPIC DATE CREATED AUTHOR AUTHOR'S ORGANIZ ATION 02/12/2024 [facility] DATE CREATED AUTHOR AUTHOR'S ORGANIZ ATION 02/28/2024 [facility] FOR RECORDS PERTAINING TO PATIENTS [...] BE BASED ON THE PRIMARY CLINICAL RECORDS. [facility] [employer] [facility]. provides no warranty or guarantee of the accuracy or completeness of information in this document.
--- OUTSIDE RECORDS SUMMARY | 2025-09-11 13:38 | XMS_ITS | Clinical Summary ---
Author Organization [employer] Address [id number] 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 Name Role Phone No Pcp, No Pcp Primary Care Provider Unavailabl e Allergies No known active allergies Medications No known medications Active Problems ProblemNoted DateDiagnosed DatePrimary osteoarthritis of right knee11/03/2023 Iliotibial band syndrome of right side11/01/2023Laceration of ijgabt0601/23/2019 Fall01/23/2019 Social History Tobacco UseTypesPacks/DayYears UsedDateSmoking Tobacco: Every DaySmokeless Tobacco: NeverAlcohol UseStandard Drinks/WeekCommentsYes0 (1 standard drink = 0.6 oz pure alcohol)ChildcareAnswerDate QtwqehorSjmisqivmHhelwdb38/10/2019 EmploymentAnswerDate FaxhhrfbAwqqrahqgdIcfkkhy41/10/2019Hunger ScreeningAnswer Date RecordedWithin the past 12 months we worried whether our food would run out before we got money to buy more.Never True01/03/2024Within the past 12 months the food we bought just didn't last and we didn't have money to get more.Never True4Purpose - LifeAnswerDate RecordedPurpose and direction in life Ulnbzrd60/10/2021CommentsNoSex and Gender InformationValueDate Recorded Sex Assigned at BirthNot on fileLegal KqjSyvlyg76/04/2015 3:15 PM EDTGender IdentityNot on fileSexual OrientationNot on file Last Filed Vital Signs Vital SignReadingTime TakenCommentsBlood Tyhzvjpl068/8611 8:13 AM EST Bvnxr65290 8:13 AM GPZVzqohbyzkqk97.8 ??C (98.3 ??F)08/29/2023 8:13 AM ESTRespiratory Veny8369 8:13 AM ESTOxygen Ydcwdbvfks148%08/29/2023 8:13 AM ESTInhaled Oxygen Concentration--Fiujrb00.5 kg (140 lb)01/03/2024 12:15 PM ZHNQenskk288 cm (5' 3 )01/03/2024 12:15 PM EDTBody Mass Index24.8001/03/2024 12:15 PM EDT Plan of Treatment Health MaintenanceDue DateLast DoneCommentsDepression Nmqxhbrth30/04/1992 DTaP,Tdap and Td Vaccines (1 - Tdap)1999Pap Smear2001Adult BMI Cdypofodt63Tobacco Cnbeaxkkk50Influenza Qrjdgnx2806/18/2025 Medical Devices Not on file Insurance Care Teams Team MemberRelationshipSpecialtyStart DateEnd Date No Pcp, [place] [address] [facility]
--- NOTE | 2025-09-11 13:40 | MM_ITS ---
Patient Name: BISMARK GARVIN MR#: [id number] : 1980 Exam Date: 09/11/2025 Ordering Doctor: SHAILA TREVINO CNP RADIOLOGY REPORT PROCEDURE: MM TOMOSYNTHESIS DIAGNOSTIC LT, 09/11/2025, 13:38 US BREAST LT LIMITED, 09/11/2025, 14:23 COMPARISON: MM TOMOSYNTHESIS SCREENING BI, 08/28/2025. INDICATIONS: Abnormal Mammogram Of The Left Breast Calculator Name NCI Breast Cancer Risk Assessment Tool 5 Year Breast Cancer Risk Not Reported. Lifetime Breast Cancer Risk Not Reported. Personal Breast Cancer No Personal Ovarian Cancer No Treatments None Family Cancers None LOCATION: [facility] BREAST COMPOSITION: There are scattered areas of fibroglandular density. FINDINGS: DIAGNOSTIC CATEGORY 2--BENIGN FINDING: LEFT BREAST: No significant suspicious finding. Previously identified focal asymmetry involve the retro lower region partially compresses about on today's study. The patient to the also complains of a lump in the upper-outer quadrant of the left breast which demonstrates no suspicious mammographic finding . Ultrasound area of lump involving the left axilla, but I appearing lymph nodes are present. No sinister mass is seen. Area of focal asymmetry within the retroareolar region/not o'clock position, no sinister mass or cyst is seen. RECOMMENDATIONS: ROUTINE MAMMOGRAM AND CLINICAL EVALUATION IN 12 MONTHS. The patient's palpable lump should be handled on a clinical basis. Dictated by: Angel Carr DO on 09/11/2025 at 14:46 Approved by: Angel Carr DO on 09/11/2025 at 14:49
== END 2025-09-11 13:35 | disposition home or self-care (01) ==
LOC: MAMMO 13:34
PROVIDERS: PCP Nurse Practitioner Family; Visit Provider Nurse Practitioner Family
DX: R92.8 Other abnormal and inconclusive findings on diagnostic imaging of breast (principal)
CPT/HCPCS: 76642; 77065; G0279